=== PATIENT | female | born 1970 | race Caucasian/White ===

== ENCOUNTER 2016-10-16 14:36 | Observation (INO) | payer OTHER ==
[2016-10-16] MEDS ORDERED: MAG HYDROX/AL HYDROX/SIMETH 30 ML, HYOSCYAMINE ELIXIR 10 ML, CIMETIDINE HCL 300 MG, LID... PO STA ×4 (15:19)
[2016-10-16] MEDS ORDERED: FAMOTIDINE 20 MG/2 ML VIAL IV STA (15:19)
[2016-10-16] MEDS ORDERED: SODIUM CHLORIDE 0.9% 1,000 ML IV ONE (15:19)
--- NOTE | 2016-10-16 15:22 | ED ---
Abdominal Pain HPI - General Chief Complaint: Abdominal Pain Stated Complaint: Rt side Abd Pain Time Seen by Provider: 10/16/16 15:11 Source: patient Mode of arrival: ambulatory Limitations: no limitations - History of Present Illness Initial Comments: This is a 46-year-old female with a history of alcohol abuse and pancreatitis who presents here in [facility] for right upper quadrant abdominal pain, nausea , vomiting, and belching. She states that the symptoms have been going on for a few months however it worsened in the last week and became unbearable today. She states that she has not been eating very much because she forgets very full right after she eats and starts to have nausea and belching. She states that she does drink every day and the last time she drank was yesterday. She has not followed up with anybody regarding these symptoms in quite some time. She states that she has a oil dipper in [place] however does not further doctor's name. The patient states that she typically will take a Vicodin if she can get it to help with the pain. She denies any dysuria or hematuria. No lower abdominal pain. No vaginal bleeding or discharge. No fevers or chills. No chest pain or shortness of breath. - Related Data Home Medications Medication Instructions Recorded Confirmed Omeprazole [PriLOSEC] 20 mg PO DAILY 07/17/15 10/16/16 Lipase/Protease/Amylase [Zenpep Dr 2 cap PO TID-W/MEALS 04/04/16 10/16/16 15,000 Units Capsule] Cetirizine HCl [Zyrtec] 10 mg PO DAILY 10/16/16 10/16/16 Previous Rx's Medication Instructions Recorded Ondansetron Odt [Zofran Odt] 4 mg PO Q8HR PRN #10 tab 04/04/16 Allergies Allergy/AdvReac Type Severity Reaction Status Date / Time No Known Allergies Allergy Verified 10/16/16 15:23 Review of Systems ROS Statement: Those systems with pertinent positive or pertinent negative responses have been documented in the HPI. ROS Other: All systems not noted in ROS Statement are negative. Past Medical History Past Medical History: COPD, GERD/Reflux, Hypertension Additional Past Medical History / Comment(s): FATTY LIVER MASS, CYST ON PANCREAS , PANCREATITIS, OCCASIONAL DIARRHEA, STATES RUNNY NOSE-NOT SURE IF IT IS ALLERGIES-DENIES ILLNESS. History of Any Multi-Drug Resistant Organisms: None Reported Past Surgical History: Tubal Ligation, Uterine Ablation Additional Past Surgical History / Comment(s): TUBAL WITH TUBE REMOVED . Past Anesthesia/Blood Transfusion Reactions: No Reported Reaction Past Psychological History: Anxiety Smoking Status: Heavy tobacco smoker Past Alcohol Use History: Daily Additional Past Alcohol Use History / Comment(s): DRINKS 5-6 BEERS PER WEEK. STARTED SMOKING AGE 13. SMOKES 1PPD Past Drug Use History: Marijuana Additional Drug Use History / Comment(s): SMOKES MARIJUANA- LAST USE 2 DAYS AGO. - Past Family History Mother Family Medical History: No Reported History General Exam - General Exam Comments Initial Comments: Constitutional: Awake alert Appears comfortable Head: Normocephalic atraumatic Eyes: no conjunctival injection No scleral icterus EOMI Neck: No JVD Supple Heart: Regular rate rhythm normal S1-S2 no murmurs Lungs: Clear to auscultation bilaterally No wheezing No rales Abdomen: Soft nondistended tender to palpation in the right upper quadrant and epigastric region without rebound or guarding Extremities: Non edematous DP pulses intact Radial pulses intact Neuro: A&Ox3 No focal neurologic deficits Psych: Appropriate mood and affect Limitations: no limitations Course Vital Signs 10/16/16 14:41 Temperature 97.8 F Pulse Rate 100 Respiratory 20 Rate Blood Pressure 133/88 O2 Sat by Pulse 99 Oximetry Medical Decision Making - Medical Decision Making This is a 46-year-old female who presented for right upper quadrant pain. The patient has what appears to be choledocholithiasis and possible acute cholecystitis. I spoke with Dr. Trinidad about the ultrasound findings and he feels the GI needs to see the patient first before he can operate. I spoke with Dr. Jaimes who accepts the admission. GI was placed on consult. The patient was started on Rocephin and Flagyl. She'll be admitted for pain control and further evaluation. The patient was updated. - Lab Data Result diagrams: 10/16/16 16:01 10/16/16 16:01 Lab Results 10/16/16 10/16/16 10/16/16 Range/Units 16:01 16:01 16:01 WBC 11.4 H (3.8-10.6) k/uL RBC 3.19 L (3.80-5.40) m/uL Hgb 11.7 (11.4-16.0) gm/dL Hct 36.2 (34.0-46.0) % MCV 113.6 H (80.0-100.0) fL MCH 36.8 H (25.0-35.0) pg MCHC 32.3 (31.0-37.0) g/dL RDW 13.8 (11.5-15.5) % Plt Count 148 L (150-450) k/uL Neutrophils % 78 % Lymphocytes % 13 % Monocytes % 6 % Eosinophils % 1 % Basophils % 0 % Neutrophils # 8.9 H (1.3-7.7) k/uL Lymphocytes # 1.5 (1.0-4.8) k/uL Monocytes # 0.7 (0-1.0) k/uL Eosinophils # 0.1 (0-0.7) k/uL Basophils # 0.0 (0-0.2) k/uL Macrocytosis Marked Sodium 135 L (137-145) mmol/L Potassium 2.9 L* (3.5-5.1) mmol/L Chloride 95 L (98-107) mmol/L Carbon Dioxide 28 (22-30) mmol/L Anion Gap 12 mmol/L BUN 2 L (7-17) mg/dL Creatinine 0.71 (0.52-1.04) mg/dL Est GFR (MDRD) Af Amer >60 (>60 ml/min/1.73 sqM) Est GFR (MDRD) Non-Af >60 (>60 ml/min/1.73 sqM) Glucose 146 H (74-99) mg/dL Calcium 9.0 (8.4-10.2) mg/dL Magnesium 1.6 (1.6-2.3) mg/dL Total Bilirubin 4.1 H (0.2-1.3) mg/dL AST 162 H (14-36) U/L ALT 59 H (9-52) U/L Alkaline Phosphatase 369 H (38-126) U/L Total Protein 6.2 L (6.3-8.2) g/dL Albumin 2.9 L (3.5-5.0) g/dL Amylase <30 L (30-110) U/L Lipase 24 (23-300) U/L Urine Color Urine Appearance (Clear) Urine pH (5.0-8.0) Ur Specific Viola (1.001-1.035) Urine Protein (Negative) Urine Glucose (UA) (Negative) Urine Ketones (Negative) Urine Blood (Negative) Urine Nitrate (Negative) Urine Bilirubin (Negative) Urine Urobilinogen (<2.0) mg/dL Ur Leukocyte Esterase (Negative) Urine RBC (0-5) /hpf Urine WBC (0-5) /hpf Ur Squamous Epith Cells (0-4) /hpf Amorphous Sediment (None) /hpf Urine Bacteria (None) /hpf Hyaline Casts (0-2) /lpf Urine Mucus (None) /hpf Urine HCG, Qual Not Detected (Not Detectd) Serum Alcohol <10 mg/dL 10/16/16 Range/Units 16:01 WBC (3.8-10.6) k/uL RBC (3.80-5.40) m/uL Hgb (11.4-16.0) gm/dL Hct (34.0-46.0) % MCV (80.0-100.0) fL MCH (25.0-35.0) pg MCHC (31.0-37.0) g/dL RDW (11.5-15.5) % Plt Count (150-450) k/uL Neutrophils % % Lymphocytes % % Monocytes % % Eosinophils % % Basophils % % Neutrophils # (1.3-7.7) k/uL Lymphocytes # (1.0-4.8) k/uL Monocytes # (0-1.0) k/uL Eosinophils # (0-0.7) k/uL Basophils # (0-0.2) k/uL Macrocytosis Sodium (137-145) mmol/L Potassium (3.5-5.1) mmol/L Chloride (98-107) mmol/L Carbon Dioxide (22-30) mmol/L Anion Gap mmol/L BUN (7-17) mg/dL Creatinine (0.52-1.04) mg/dL Est GFR (MDRD) Af Amer (>60 ml/min/1.73 sqM) Est GFR (MDRD) Non-Af (>60 ml/min/1.73 sqM) Glucose (74-99) mg/dL Calcium (8.4-10.2) mg/dL Magnesium (1.6-2.3) mg/dL Total Bilirubin (0.2-1.3) mg/dL AST (14-36) U/L ALT (9-52) U/L Alkaline Phosphatase (38-126) U/L Total Protein (6.3-8.2) g/dL Albumin (3.5-5.0) g/dL Amylase (30-110) U/L Lipase (23-300) U/L Urine Color Dark Yellow Urine Appearance Cloudy H (Clear) Urine pH 6.0 (5.0-8.0) Ur Specific Viola 1.010 (1.001-1.035) Urine Protein Trace H (Negative) Urine Glucose (UA) Negative (Negative) Urine Ketones Negative (Negative) Urine Blood Negative (Negative) Urine Nitrate Negative (Negative) Urine Bilirubin 1+ H (Negative) Urine Urobilinogen 4.0 (<2.0) mg/dL Ur Leukocyte Esterase Trace H (Negative) Urine RBC 1 (0-5) /hpf Urine WBC 10 H (0-5) /hpf Ur Squamous Epith Cells 6 H (0-4) /hpf Amorphous Sediment Rare H (None) /hpf Urine Bacteria Rare H (None) /hpf Hyaline Casts 6 H (0-2) /lpf Urine Mucus Occasional H (None) /hpf Urine HCG, Qual (Not Detectd) Serum Alcohol mg/dL Disposition Clinical Impression: Acute cholecystitis, Choledocholithiasis Disposition: ADMITTED IP TO THIS [facility] Condition: Stable
[2016-10-16 16:16] LABS: Basophils % (A) 0 %; CH 36.3; CHCM 32.1; Eosinophils # (A) 0.1 k/uL (0-0.7); Eosinophils % (A) 1 %; HCT 36.2 % (34.0-46.0); HGB 11.7 gm/dL (11.4-16.0); Luc # (Auto) 0.22; Luc % (Auto) 2; Lymphocytes # (A) 1.5 k/uL (1.0-4.8); Lymphocytes % (A) 13 %; MCH 36.8 pg (25.0-35.0); MCHC 32.3 g/dL (31.0-37.0); MCV 113.6 fL (80.0-100.0); Macrocytosis Marked; Mean Platelet Volume 7.7; Monocytes # (A) 0.7 k/uL (0-1.0); Monocytes % (A) 6 %; Neutrophils # (A) 8.9 k/uL (1.3-7.7); Neutrophils % (A) 78 %; RBC 3.19 m/uL (3.80-5.40); RDW 13.8 % (11.5-15.5); WBC 11.4 k/uL (3.8-10.6); WBC (Perox) 11.97
[2016-10-16 16:20] LABS: Amorphous Sediment,Urine Rare /hpf; Appearance,Urine Cloudy (Clear); Bacteria,Urine Rare /hpf; Bilirubin,Urine 1+ (Negative); Glucose,Urine (UA) Negative (Negative); Ketones,Urine Negative (Negative); Leukocyte Esterase,Urine Trace (Negative); Mucus,Urine Occasional /hpf; Nitrite,Urine Negative (Negative); Particle Count 3845; Protein,Urine Trace (Negative); RBC,Urine 1 /hpf (0-5); Squamous Epithelial Cell,Urine 6 /hpf (0-4); UA Billing (MACRO vs. MICRO) MICRO; WBC,Urine 10 /hpf (0-5)
[2016-10-16 16:28] LABS: ALT 59 U/L (9-52); AST 162 U/L (14-36); Alcohol <10 mg/dL; Alkaline Phosphatase 369 U/L (38-126); Amylase <30 U/L (30-110); Anion Gap 12 mmol/L; Blood Urea Nitrogen 2 mg/dL (7-17); Carbon Dioxide 28 mmol/L (22-30); Chloride 95 mmol/L (98-107); Glucose 146 mg/dL (74-99); Magnesium 1.6 mg/dL (1.6-2.3); Non-African American GFR(MDRD) >60 (>60 ml/min/1.73 sqM); Sodium 135 mmol/L (137-145); Total Bilirubin 4.1 mg/dL (0.2-1.3); Total Protein 6.2 g/dL (6.3-8.2)
[2016-10-16 16:34] LABS: Potassium 2.9 mmol/L (3.5-5.1)
[2016-10-16] MEDS ORDERED: POTASSIUM CHLORIDE ER 20 MEQ TAB.ER PO STA (16:38)
[2016-10-16] MEDS ORDERED: MAGNESIUM OXIDE 400 MG TAB PO STA (16:38)
[2016-10-16] MEDS ORDERED: MORPHINE SULFATE 4 MG/ML SYRINGE IVP STA (17:06)
[2016-10-16] MEDS ORDERED: ONDANSETRON 4 MG/2 ML VIAL IVP STA (17:06)
--- NOTE | 2016-10-16 17:13 | US ---
EXAMINATION TYPE: US abdomen limited DATE OF EXAM: 10/16/2016 4:52 PM COMPARISON: 06/19/2015 CLINICAL HISTORY: Pain. RUQ pain and N/V x 2 weeks, bloating EXAM MEASUREMENTS: Liver Length: 17.5 cm Gallbladder Wall: 0.2 cm CBD: 1.0 cm Right Kidney: 9.1 x 3.5 x 4.0 cm Findings: Pancreas: obscured by overlying midline bowel gas Liver: measures in upper limits of normal at 17.5cm, increased echogenicity, increased attenuation Gallbladder: appears hydropic at 12.2cm in length and 5.3cm in transverse, low level echoes seen kenia ng posterior wall, wall measures wnl, small amount of fluid seen adjacent to gallbladder Evidence for sonographic Lopez's sign: yes CBD: dilated at 1.0cm Right Kidney: wnl IMPRESSION: 1. Gallbladder hydrops with low-level internal echoes and a small amount of adjacent fluid. Common bi le duct dilatation noted as well. Correlate for acute cholecystitis.
[2016-10-16] MEDS ORDERED: ONDANSETRON 4 MG/2 ML VIAL IVP PRN (17:59)
[2016-10-16] MEDS ORDERED: NALOXONE 0.4 MG/ML 1 ML VIAL IV PRN (17:59)
[2016-10-16] MEDS ORDERED: metroNIDAZOLE-NS PMX 500 MG in SALINE 1 100ML.BAG IVPB ONE (18:15)
[2016-10-16] MEDS: SODIUM CHLORIDE 0.9% 1,000 ML IV SCH (19:09)
[2016-10-16 19:57] VITALS: BMI 17.2
[2016-10-16] MEDS ORDERED: diphenhydrAMINE 50 MG CAP PO PRN (20:02)
[2016-10-16] MEDS: NICOTINE 21MG/24HR PATCH TRANSDERM SCH (20:30)
[2016-10-16] MEDS ORDERED: LORazepam 2 MG/ML SYRINGE IV PRN ×2 (21:23)
[2016-10-16 22:20] VITALS: RESP 16
[2016-10-17] MEDS: metroNIDAZOLE-NS PMX 500 MG in SALINE 1 100ML.BAG IVPB SCH ×2 (00:19→07:14)
[2016-10-17] MEDS: SODIUM CHLORIDE 0.9% 1,000 ML IV SCH ×2 (03:29→14:40)
[2016-10-17] MEDS: LEVOTHYROXINE 88 MCG TAB PO SCH (06:15)
[2016-10-17] MEDS: LIPASE 5,000/PROTEASE 17,000/AMYLASE 27,0000 PO SCH ×3 (07:17→17:09)
[2016-10-17] MEDS: NICOTINE 21MG/24HR PATCH TRANSDERM SCH (07:18)
[2016-10-17] MEDS: PANTOPRAZOLE 40 MG TABLET PO SCH (07:18)
[2016-10-17] MEDS: LORATADINE 10 MG TAB PO SCH (07:18)
[2016-10-17] MEDS ORDERED: Potassium Replacement Protocol 1 EACH MISC MISCELLANE PRN (10:36)
[2016-10-17 10:47] LABS: INR 1.3 (<1.1); Prothrombin Time 13.2 sec (9.0-12.0)
[2016-10-17 10:48] LABS: ALT 51 U/L (9-52); AST 101 U/L (14-36); Alkaline Phosphatase 267 U/L (38-126); Anion Gap 5 mmol/L; Bilirubin, Delta 1.6 mg/dL (0.0-0.2); Blood Urea Nitrogen <2 mg/dL (7-17); Calcium 7.7 mg/dL (8.4-10.2); Carbon Dioxide 27 mmol/L (22-30); Chloride 105 mmol/L (98-107); Glucose 102 mg/dL (74-99); Non-African American GFR(MDRD) >60 (>60 ml/min/1.73 sqM); Potassium 3.6 mmol/L (3.5-5.1); Sodium 137 mmol/L (137-145); Total Bilirubin 3.2 mg/dL (0.2-1.3); Total Protein 4.4 g/dL (6.3-8.2)
[2016-10-17 10:50] LABS: Basophils % (A) 0 %; CH 35.9; CHCM 31.1; Eosinophils # (A) 0.1 k/uL (0-0.7); Eosinophils % (A) 1 %; HCT 29.7 % (34.0-46.0); HDW 2.18; Hypochromasia Slight; Luc # (Auto) 0.21; Luc % (Auto) 3; Lymphocytes % (A) 15 %; MCH 36.6 pg (25.0-35.0); MCHC 31.5 g/dL (31.0-37.0); MCV 115.9 fL (80.0-100.0); Macrocytosis Marked; Mean Platelet Volume 8.2; Monocytes # (A) 0.4 k/uL (0-1.0); Monocytes % (A) 6 %; Neutrophils # (A) 4.9 k/uL (1.3-7.7); Neutrophils % (A) 75 %; RBC 2.57 m/uL (3.80-5.40); RDW 14.4 % (11.5-15.5); WBC 6.5 k/uL (3.8-10.6); WBC (Perox) 6.38
[2016-10-17 10:51] LABS: HGB 9.4 gm/dL (11.4-16.0)
[2016-10-17 11:17] LABS: Hepatitis B Surface Ag Index 0.07
[2016-10-17 11:23] LABS: Hepatitis B Core IgM Index 0.04
[2016-10-17 11:35] LABS: Hepatitis C Virus IgG Index 0.02
[2016-10-17 11:39] LABS: Hepatitis C Virus IgG Ab Negative (Negative)
--- NOTE | 2016-10-17 11:46 | P.CONS ---
History of Present Illness - Reason for Consult Consult date: 10/17/16 Biliary obstruction Requesting physician: Isabella Rodriguez - History of Present Illness 46-year-old female with a history of long-standing EtOH abuse. She drinks whiskey on a daily basis as recent as one day prior to admission. Consultation requested for possible biliary obstruction. She is known to the GI service and evaluated in the past regarding alcohol pancreatitis but has never been jaundice. Admission total bilirubin 4.1. AST 162. ALT 59. Alkaline phosphatase 369. Lipase 24. White count 11.4. Hemoglobin 11.7. MCV 113. Platelet 148. Serum alcohol less than 10. She has been expressing right upper quadrant abdominal discomfort for the last 2 weeks duration without fever or chills. Darker urine over the last few days. Denies acholic stools. Ultrasound abdomen reported enlarged liver 17.5 cm with hydropic gallbladder low-level echoes seen posterior wall small amount of fluid seen adjacent to the gallbladder. CBD 1 cm. Patient has had multiple abdominal imaging including liver MRI over the last 2 years all failing to yield evidence of cholelithiasis. CBD seems to fluctuate between 0.7 and 1 cm on these imaging studies. No changes in medications. No recent antibiotics. Review of Systems Constitutional: Denies fever, chills, sweats, weight gain, or loss. HEENT: Negative for migraines, blurred vision or loss, earaches, drainage, tinnitus, oral mucosal lesions, dysphagia, or odynophagia. CARDIAC: Negative for chest pain, arrhythmias, or palpitation. RESPIRATORY: Cigarette dependency. Marijuana. COPD. Hypertension. Denies hemoptysis, cough, or sputum production. GI: See HPI for pertinent findings. : Negative for hematuria, urgency, frequency, polyuria, or dysuria. GYNc: Denies possibility of . Negative vaginal discharge. MUSCULOSKELETAL: Negative for muscle aches, swelling, arthritis, and arthralgias. NEUROLOGIC: Negative for stroke or TIA. ENDOCRINE: Negative for thyroid problems. SKIN: Negative for rash or itching. PSYCHIATRIC: Anxiety. All systems: negative (See HPI) Past Medical History Past Medical History: COPD, GERD/Reflux, Hypertension Additional Past Medical History / Comment(s): FATTY LIVER MASS, CYST ON PANCREAS , PANCREATITIS, OCCASIONAL DIARRHEA, STATES RUNNY NOSE-NOT SURE IF IT IS ALLERGIES-DENIES ILLNESS. History of Any Multi-Drug Resistant Organisms: None Reported Past Surgical History: Tubal Ligation, Uterine Ablation Additional Past Surgical History / Comment(s): TUBAL WITH TUBE REMOVED . Past Anesthesia/Blood Transfusion Reactions: No Reported Reaction Past Psychological History: Anxiety Smoking Status: Heavy tobacco smoker Past Alcohol Use History: Daily Additional Past Alcohol Use History / Comment(s): DRINKS 5-6 BEERS PER WEEK. STARTED SMOKING AGE 13. SMOKES 1PPD Past Drug Use History: Marijuana Additional Drug Use History / Comment(s): SMOKES MARIJUANA- last used today - Past Family History Mother Family Medical History: No Reported History Medications and Allergies Home Medications Medication Instructions Recorded Confirmed Type Omeprazole [PriLOSEC] 20 mg PO DAILY 07/17/15 10/16/16 History Lipase/Protease/Amylase [Zenpep Dr 2 cap PO TID-W/MEALS 04/04/16 10/16/16 History 15,000 Units Capsule] Cetirizine HCl [Zyrtec] 10 mg PO DAILY 10/16/16 10/16/16 History Allergies Allergy/AdvReac Type Severity Reaction Status Date / Time No Known Allergies Allergy Verified 10/16/16 15:23 Physical Exam Vitals: Vital Signs Temp Pulse Pulse Resp BP BP Pulse Ox 10/17/16 07:00 98.0 F 77 16 96/63 96 10/16/16 23:24 96 16 10/16/16 22:19 98.2 F 96 16 126/78 97 10/16/16 18:59 98.2 F 97 18 127/80 100 Intake and Output 10/16/16 10/17/16 10/17/16 22:59 06:59 14:59 Intake Total 240 Balance 240 Intake: Oral 240 Other: # Voids 1 Weight 45.359 kg 45.359 kg General appearance: The patient is alert, oriented with visible hand shaking.. Jaundice. HET: Head is normocephalic and atraumatic. Pupils are equal and reactive. Sclerae icterus. Oropharynx is clear without lesions. Neck: Supple without lymphadenopathy. Trachea midline. Heart: S1 S2. Regular rate and rhythm. Lungs: No crackles or wheezes are heard. Abdomen: Soft, mount tenderness right upper quadrant, nondistended with bowel sounds. No peritoneal signs. No palpable organomegaly or masses. Extremities: Normal skin color and turgor. No cyanosis, rash, ulceration, clubbing, or edema. Radial and pedal pulses are 2/4 bilaterally. Neurological: No focal deficits. Strength and sensation are grossly intact. Results CBC & Chem 7: 10/17/16 10:08 10/16/16 16:01 Labs: Abnormal Lab Results - Last 24 Hours (Table) 10/17/16 10/17/16 Range/Units 10:08 10:08 RBC 2.57 L (3.80-5.40) m/uL Hgb 9.4 L D (11.4-16.0) gm/dL Hct 29.7 L (34.0-46.0) % MCV 115.9 H (80.0-100.0) fL MCH 36.6 H (25.0-35.0) pg Plt Count 137 L (150-450) k/uL PT 13.2 H (9.0-12.0) sec US - abdomen: report reviewed (Reviewed by Dr. Valentine) Assessment and Plan (1) Alcoholic hepatitis Status: Acute (2) Right upper quadrant abdominal pain Status: Acute (3) Jaundice Status: Acute (4) ETOH abuse Status: Chronic Plan: 1. Clinical presentation seems to be consistent with acute alcohol hepatitis with her history of long-standing alcohol abuse and multiple abdominal imaging tests over the last few years reported no evidence of cholelithiasis. We'll defer to surgical team at there is concern for acute cholecystitis. We'll obtain a hepatitis panel, ammonia, PT/INR, and fractionated bilirubin. Case was discussed with Dr. Jarvis regarding clinical assessment. ERCP is not planned at this time however will proceed with MRCP imaging to definitively rule out evidence of choledocholithiasis. 2. Alcohol withdrawal protocol. 3. Clear liquid diet. 4. Alcohol abstinence was strongly advised. 5. GI prophylaxis. 6. Repeat liver chemistries in a.m. Thank you for this kind referral and the opportunity to participate in the care of your patient. This consultation was discussed with Dr. Valentine. The impression and plan of care have been directed as dictated.
--- NOTE | 2016-10-17 11:49 | HP ---
DATE OF ADMISSION: A 46-year-old who came in with complaints of abdominal pain. Patient has this chronic abdominal pain. Patient's pain is mostly in the right upper quadrant and patient is an alcoholic, continues to drink alcohol. Patient had an ultrasound of the abdomen, which was read as gallbladder hydrops because of which surgery was consulted. There is a possibility of common bile obstruction and patient is being evaluated by Gastroenterology as well. Patient is having multiple episodes of nausea, vomiting. 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 Patient is undergoing alcohol withdrawals at this point of time. Patient drinks about 3 shots of hard liquor she says. I believe she uses more than that. Patient appears to have early signs of cirrhosis and patient does not have ophthalmoplegia and other signs of Wernicke's encephalopathy or Korsakoff psychosis. Patient denied any fever, chills. Patient is complaining of cough without any sputum production. Patient is a smoker. The patient does have a highly elevated TSH and T4 and patient was started on levothyroxine, which is appropriate. REVIEW OF SYSTEMS: CONSTITUTIONAL: No fever, no malaise, no fatigue. HEENT: No recent visual problems or hearing problems. Denied any sore throat. CARDIOVASCULAR: No chest pain, orthopnea, PND, no palpitations, no syncope. PULMONARY: No shortness of breath, no cough, no hemoptysis. GASTROINTESTINAL: As described in HPI. NEUROLOGICAL: No headaches, no weakness, no numbness. HEMATOLOGICAL: Denies any bleeding or petechiae. GENITOURINARY: Denies any burning micturition, frequency, or urgency. MUSCULOSKELETAL/RHEUMATOLOGICAL: Denies any joint pain, swelling, or any muscle pain. ENDOCRINE: Denies any polyuria or polydipsia. The rest of the 14 point review of systems is negative. Home medications include omeprazole. Patient is on lipase protease amylase supplementations, cetirizine and ondansetron. ALLERGIES: No known drug allergies. Past medical history is significant for COPD, gastroesophageal reflux disease, hypertension, possible early signs of cirrhosis and alcohol abuse history and alcoholism, tubal ligation surgery, uterine ablation surgery. Patient does smoke heavily about 1-1/2 packs per day. Alcohol abuse as mentioned above. Occasional use of marijuana. FAMILY HISTORY: Mother had no reported history. Father's history is unknown. PHYSICAL EXAMINATION: Temperature 98.0, pulse of 77, respiratory rate of 16, blood pressure is 96/63, saturating at 96% on room air. GENERAL EXAMINATION: Patient is tremulous. Does have some chronic speech abnormalities, probably due to chronic alcoholic encephalopathy, although patient does not have any signs of Wernicke's encephalopathy. HEENT: Pupils are round and equally reacting to light. EOMI. No scleral icterus. No conjunctival pallor. Normocephalic, atraumatic. No pharyngeal erythema. No thyromegaly. CARDIOVASCULAR: S1 and S2 present. No murmurs, rubs, or gallops. PULMONARY: Chest is clear to auscultation, no wheezing or crackles. ABDOMEN: Soft, nontender, nondistended, normoactive bowel sounds. No palpable organomegaly. MUSCULOSKELETAL: No joint swelling or deformity. EXTREMITIES: No cyanosis, clubbing, or pedal edema. NEUROLOGICAL: Gross neurological examination did not reveal any focal deficits. SKIN: No rashes. LABORATORY DATA: CBC, CMP are abnormal for elevated WBC count of 11,400. Sodium is 135, potassium 2.9, which will be supplemented. I do not have a magnesium level, which will be ordered. Anion gap of 12 secondary to alcohol. Total bili of 4.1, AST is 162. ALT is 59, alkaline phosphatase is ( ). Albumin is 2.9. Amylase less than 30. Lipase is 24. TSH is greater than 100 and T4 is 0.53. Patient does not have any other signs or symptoms of myxedema or myxedema coma. Urine a little bit abnormal, but this is asymptomatic bacteriuria. ASSESSMENT AND PLAN: 1. Epigastric abdominal pain probably due to alcoholic gastritis. Regarding hydrops gallbladder, I will let Surgery take care of that issue. My suspicion is low that patient has choledocholithiasis anyways Gastroenterology was consulted. 2. Alcohol withdrawal and alcohol abuse history. Extensive counseling regarding alcohol abuse was provided. Patient is on thiamine, multivitamin supplementation. Patient has chronic alcoholic encephalopathy, but not Wernicke's encephalopathy and patient is on Ativan and CIWA protocol. 3. Chronic obstructive pulmonary disease with acute exacerbation. I will start her on low dose of oral steroid, inhalational steroid and albuterol ipratropium. 4. New diagnosis of hypothyroidism. 5. Elevated MCV secondary to alcohol use. 6. Multiple electrolyte abnormalities. Magnesium level will be obtained and potassium will be supplemented. 7. Possible alcoholic cirrhosis with elevated liver enzymes. 8. Asymptomatic bacteriuria for which patient will not need any antibiotics at this point of time, although will use doxycycline for bronchitis. Ceftriaxone and metronidazole will be discontinued.
[2016-10-17] MEDS ORDERED: INDOMETHACIN 50MG SUPPOSITORY RECTAL ONE (12:00)
[2016-10-17] MEDS: predniSONE 20 MG TAB PO SCH (12:17)
[2016-10-17] MEDS: POTASSIUM CHLORIDE 10 MEQ in WATER FOR INJECTION 1 100ML.BAG IVPB SCH ×2 (12:18→14:37)
[2016-10-17] MEDS: DOXYCYCLINE 50 MG CAP PO SCH ×2 (12:18→21:01)
[2016-10-17] MEDS: MULTIVITAMINS, THERA 1 EACH TAB PO SCH (12:23)
[2016-10-17] MEDS: THIAMINE 100 MG TAB PO SCH ×2 (12:23→17:03)
[2016-10-17] MEDS: MORPHINE SULFATE 4 MG/ML SYRINGE IV PRN ×2 (12:32→17:02)
[2016-10-17 13:31] LABS: Magnesium 1.7 mg/dL (1.6-2.3)
--- NOTE | 2016-10-17 13:45 | P.GSCN ---
History of Present Illness Consult date: 10/17/16 History of present illness: A 46-year-old female is being seen by surgical service at the request of the attending for right upper abdominal quadrant pain. 46-year-old female being seen at the bedside who states that she is an active drinker drinks whiskey on a daily basis last drink within the last 24-48 hours. Patient presented to the emergency room with a chief complaint of developing right upper quadrant abdominal discomfort stated it had been ongoing for the past several weeks. Patient denied any fever chills. Patient did have an ultrasound done in the emergency room it did show enlarged liver 17.5 cm with hydropic gallbladder. The common bile duct 1 cm on imaging. Patient does state that she has chronic abdominal pain in the right upper quadrant. Questioning patient patient states she has had episodes of a nausea sensation no active emesis. Given the above clinical presentation the surgical eval was requested currently the patient states the abdominal pain continues to persist points to the right upper quadrant. Additionally patient reports that her urine has been dark but there's been no frequent stooling. The labs were noted and reviewed. AST and ALT and alk phos mildly elevated lipase is 24. Review of Systems Essentially unremarkable except as mentioned in the present illness Past Medical History Past Medical History: COPD, GERD/Reflux, Hypertension Additional Past Medical History / Comment(s): FATTY LIVER MASS, CYST ON PANCREAS , PANCREATITIS, OCCASIONAL DIARRHEA, STATES RUNNY NOSE-NOT SURE IF IT IS ALLERGIES-DENIES ILLNESS. History of Any Multi-Drug Resistant Organisms: None Reported Past Surgical History: Tubal Ligation, Uterine Ablation Additional Past Surgical History / Comment(s): TUBAL WITH TUBE REMOVED . Past Anesthesia/Blood Transfusion Reactions: No Reported Reaction Past Psychological History: Anxiety Smoking Status: Heavy tobacco smoker Past Alcohol Use History: Daily Additional Past Alcohol Use History / Comment(s): DRINKS 5-6 BEERS PER WEEK. STARTED SMOKING AGE 13. SMOKES 1PPD Past Drug Use History: Marijuana Additional Drug Use History / Comment(s): SMOKES MARIJUANA- last used today - Past Family History Mother Family Medical History: No Reported History Medications and Allergies Home Medications Medication Instructions Recorded Confirmed Type Omeprazole [PriLOSEC] 20 mg PO DAILY 07/17/15 10/16/16 History Lipase/Protease/Amylase [Zenpep Dr 2 cap PO TID-W/MEALS 04/04/16 10/16/16 History 15,000 Units Capsule] Cetirizine HCl [Zyrtec] 10 mg PO DAILY 10/16/16 10/16/16 History Allergies Allergy/AdvReac Type Severity Reaction Status Date / Time No Known Allergies Allergy Verified 10/16/16 15:23 Surgical - Exam Vital Signs Temp Pulse Resp BP Pulse Ox 97.8 F 100 20 133/88 99 10/16/16 14:41 10/16/16 14:41 10/16/16 14:41 10/16/16 14:41 10/16/16 14:41 GENERAL APPEARANCE: 46-year-old female looking older than stated age jaundice is alert, oriented, in no acute distress. VITAL SIGNS: Reviewed HEENT: Head is normocephalic and atraumatic. Pupils are equal and reactive. The nares are patent. Oropharynx is clear without lesions. NECK: Supple without lymphadenopathy. Traches midline. HEART: S1, S2. Regular rate and rhythm. LUNGS: No crackles or wheezes are heard. ABDOMEN: Soft, slight tenderness to the right upper quadrant nondistended with bowel sounds. No peritoneal signs. No palpable organomegaly or masses. EXTREMITIES: No edema. Radial pedal pulses are 2/4 bilaterally. Tremors noticed the bilateral hands NEUROLOGICAL: No focal deficits. Strength and sensation are grossly intact. Skin jaundiced no evidence of a rash Results - Labs 10/17/16 10:08 10/17/16 10:08 Abnormal Lab Results - Last 24 Hours (Table) 10/17/16 10/17/16 10/17/16 Range/Units 10:08 10:08 10:08 RBC 2.57 L (3.80-5.40) m/uL Hgb 9.4 L D (11.4-16.0) gm/dL Hct 29.7 L (34.0-46.0) % MCV 115.9 H (80.0-100.0) fL MCH 36.6 H (25.0-35.0) pg Plt Count 137 L (150-450) k/uL PT 13.2 H (9.0-12.0) sec BUN <2 L (7-17) mg/dL Glucose 102 H (74-99) mg/dL Calcium 7.7 L (8.4-10.2) mg/dL Total Bilirubin 3.2 H (0.2-1.3) mg/dL Conjugated Bilirubin 0.7 H (0.0-0.3) mg/dL Delta Bilirubin 1.6 H (0.0-0.2) mg/dL AST 101 H (14-36) U/L Alkaline Phosphatase 267 H (38-126) U/L Total Protein 4.4 L (6.3-8.2) g/dL Albumin 1.9 L (3.5-5.0) g/dL Diabetes panel 10/17/16 Range/Units 10:08 Sodium 137 (137-145) mmol/L Potassium 3.6 (3.5-5.1) mmol/L Chloride 105 (98-107) mmol/L Carbon Dioxide 27 (22-30) mmol/L BUN <2 L (7-17) mg/dL Creatinine 0.75 (0.52-1.04) mg/dL Glucose 102 H (74-99) mg/dL Calcium 7.7 L (8.4-10.2) mg/dL AST 101 H (14-36) U/L ALT 51 (9-52) U/L Alkaline Phosphatase 267 H (38-126) U/L Total Protein 4.4 L (6.3-8.2) g/dL Albumin 1.9 L (3.5-5.0) g/dL Calcium panel 10/17/16 Range/Units 10:08 Calcium 7.7 L (8.4-10.2) mg/dL Albumin 1.9 L (3.5-5.0) g/dL Pituitary panel 10/17/16 Range/Units 10:08 Sodium 137 (137-145) mmol/L Potassium 3.6 (3.5-5.1) mmol/L Chloride 105 (98-107) mmol/L Carbon Dioxide 27 (22-30) mmol/L BUN <2 L (7-17) mg/dL Creatinine 0.75 (0.52-1.04) mg/dL Glucose 102 H (74-99) mg/dL Calcium 7.7 L (8.4-10.2) mg/dL Adrenal panel 10/17/16 Range/Units 10:08 Sodium 137 (137-145) mmol/L Potassium 3.6 (3.5-5.1) mmol/L Chloride 105 (98-107) mmol/L Carbon Dioxide 27 (22-30) mmol/L BUN <2 L (7-17) mg/dL Creatinine 0.75 (0.52-1.04) mg/dL Glucose 102 H (74-99) mg/dL Calcium 7.7 L (8.4-10.2) mg/dL Total Bilirubin 3.2 H (0.2-1.3) mg/dL AST 101 H (14-36) U/L ALT 51 (9-52) U/L Alkaline Phosphatase 267 H (38-126) U/L Total Protein 4.4 L (6.3-8.2) g/dL Albumin 1.9 L (3.5-5.0) g/dL Assessment and Plan Plan: Impression Present on admission right upper quadrant pain acute Chronic alcoholism daily consumption currently on [facility] protocol for impending DTs last drink of alcohol within the last 24-48 hours Present on admission jaundice alcohol hepatitis with chronic alcoholism Plan GIs recommendations ERCP not planned at this time however will proceed with an MRCP imaging to do definitively rule out evidence of cholelithiasis Continue with the alcohol withdrawal protocol Clear liquid diet Patient's been advised to stop drinking alcohol abstinence strongly advised At this time no acute surgical intervention will follow clinical course closely addressing issues as they arise Thank you for allowing us to participate in the surgical management of your patient The above dictated assessment and findings were discussed with Dr. Jarvis Impression and the plan of care have been dictated as directed. Rose Ching nurse practitioner acting as a scribe for Matheus.
[2016-10-17] MEDS: SYMBICORT 160-4.5 MCG INHALER INHALATION SCH (19:18)
[2016-10-17] MEDS ORDERED: MELATONIN 3 MG TABLET PO SCH (21:15)
[2016-10-17] MEDS: LORazepam 2 MG/ML SYRINGE IV PRN (21:39)
--- NOTE | 2016-10-17 22:17 | MR ---
EXAMINATION TYPE: MR MRCP DATE OF EXAM: 10/17/2016 5:00 PM COMPARISON: NONE HISTORY: hepatitis r/o CBD stone Standard multiplanar, multisequence MRI departmental protocol Multiplanar, multisequence images of the abdomen were acquired (MRCP protocol). [id number] imagin g was utilized. Diffusion weighted imaging was performed. FINDINGS: Again there is signal dropout homogeneously of the hepatic parenchyma with a smooth liver contour com patible with diffuse hepatic steatosis. Lack of intravenous contrast and presence of hepatic steatosi s limits evaluation for underlying hepatic masses. There is mild diffuse intrahepatic biliary ductal dilatation. Although there are no obstructing calculi the proximal common bile duct is enlarged measu ring up to 8 mm and tapers smoothly distally without abrupt cut off. The main pancreatic duct is agai n mildly prominent in size measuring up to 5 mm near the pancreatic head, unchanged from the prior ex am. There is no evidence of focal stricture within the pancreatic duct. Multiple sidebranches appear dilated one inferiorly on axial T2 fat sat image 18 and the other may represent accessory duct of Alarcon torini on image 17. Again within the pancreatic tail there is a multiseptated cystic mass that appear s to be contiguous with the main pancreatic duct, which is nondilated within the tail. This measures 1.7 x 1.3 cm and is overall unchanged in size given differences in technique and slice selection. The spleen, kidneys, adrenal glands, and bowel are grossly unremarkable. The gallbladder is again pro minent in size. Pancreatic head is not well visualized at its inferior margin and incompletely charac terized without the utilization of intravenous contrast. Given the dilation of the common bile duct a nd pancreatic duct MR abdomen pancreatic mass protocol is recommended. IMPRESSION: 1. Dilation of both the common bile duct and pancreatic duct with distal tapering of the common bile duct. This may represent common bile duct stricture. Alternatively evaluation for pancreatic mass is recommended with CT abdomen pancreatic mass protocol or MR abdomen pancreatic mass protocol. 2. No evidence of choledocholithiasis. 3. Redemonstration of hepatic steatosis. 4. Overall unchanged size of the cystic pancreatic tail lesion, likely related to IPMN for which foll ow-up examination in one year is recommended with intravenous contrast to assess for changes in morph ology, size, and enhancement.
[2016-10-18] MEDS: SODIUM CHLORIDE 0.9% 1,000 ML IV SCH ×2 (00:11→07:30)
[2016-10-18] MEDS: LEVOTHYROXINE 88 MCG TAB PO SCH (06:15)
[2016-10-18] MEDS: NICOTINE 21MG/24HR PATCH TRANSDERM SCH (07:17)
[2016-10-18] MEDS: MORPHINE SULFATE 4 MG/ML SYRINGE IV PRN (07:17)
[2016-10-18] MEDS: LIPASE 5,000/PROTEASE 17,000/AMYLASE 27,0000 PO SCH ×2 (07:21→11:52)
[2016-10-18] MEDS: PANTOPRAZOLE 40 MG TABLET PO SCH (07:22)
[2016-10-18] MEDS: DOXYCYCLINE 50 MG CAP PO SCH (07:22)
[2016-10-18] MEDS: predniSONE 20 MG TAB PO SCH (07:22)
[2016-10-18] MEDS: THIAMINE 100 MG TAB PO SCH (07:22)
[2016-10-18] MEDS: LORATADINE 10 MG TAB PO SCH ×2 (07:22→07:29)
[2016-10-18] MEDS: MULTIVITAMINS, THERA 1 EACH TAB PO SCH (07:29)
[2016-10-18 07:41] LABS: CH 36.1; CHCM 30.4; HCT 29.5 % (34.0-46.0); HDW 2.13; HGB 9.2 gm/dL (11.4-16.0); Hypochromasia Slight; MCH 37.3 pg (25.0-35.0); MCHC 31.3 g/dL (31.0-37.0); Macrocytosis Marked; Mean Platelet Volume 8.3; RBC 2.48 m/uL (3.80-5.40); RDW 14.5 % (11.5-15.5); WBC 7.3 k/uL (3.8-10.6)
[2016-10-18 07:42] LABS: INR 1.4 (<1.1); Prothrombin Time 13.6 sec (9.0-12.0)
[2016-10-18 07:52] LABS: MCV 119.2 fL (80.0-100.0)
[2016-10-18 08:03] LABS: ALT 46 U/L (9-52); AST 93 U/L (14-36); Alkaline Phosphatase 260 U/L (38-126); Anion Gap 7 mmol/L; Blood Urea Nitrogen 3 mg/dL (7-17); Calcium 8.1 mg/dL (8.4-10.2); Carbon Dioxide 23 mmol/L (22-30); Chloride 106 mmol/L (98-107); Glucose 106 mg/dL (74-99); Magnesium 1.6 mg/dL (1.6-2.3); Non-African American GFR(MDRD) >60 (>60 ml/min/1.73 sqM); Potassium 4.2 mmol/L (3.5-5.1); Sodium 136 mmol/L (137-145); Total Bilirubin 2.6 mg/dL (0.2-1.3); Total Protein 4.6 g/dL (6.3-8.2)
[2016-10-18] MEDS: LORazepam 2 MG/ML SYRINGE IV PRN (08:27)
[2016-10-18] MEDS: SYMBICORT 160-4.5 MCG INHALER INHALATION SCH (09:02)
--- NOTE | 2016-10-18 10:45 | PN ---
DATE OF SERVICE: 10/18/2016 Patient is a 46-year-old white female with history of heavy alcohol abuse was admitted to the hospital with vague abdominal pain, mostly in the right upper quadrant area for the last several weeks duration. She has occasional nausea and vomiting. When she came into the emergency room, she did have ultrasound of the gallbladder done that showed evidence of hydropic gallbladder with some shadowing in the gallbladder noted and also there was hepatomegaly seen. Common bile duct was dilated to 1 cm. She was noted to have elevated serum transaminases and T-bili up to 4 and hence we are consulted for an ERCP. She was seen in consultation yesterday, but her symptoms are more suggestive of acute alcoholic hepatitis rather than biliary obstruction. She hence underwent an M.R.C.P. yesterday to evaluate this further, which showed dilated common bile duct as well as pancreatic duct with some tapering at the distal CBD but no evidence of choledocholithiasis. In the meantime, the patient still complains of abdominal discomfort. Some nausea. No emesis, tolerating diet reasonably well. No fever, chills, night sweats. On physical examination, she appears comfortable in no apparent distress. Vitals as are stable. Blood pressure is 102/65, pulse 77, temperature 98.2. HEENT examination is unremarkable. Conjunctivae are pink. Sclerae icteric. Oral cavity, no lesions. NECK: No JVD or lymph node enlargement. Lymph node enlargement. CHEST: Clear to auscultation. HEART: Regular rate and rhythm. ABDOMEN: Soft. There was tenderness in the right upper quadrant area. Liver was slightly palpable. Slightly enlarged. No splenomegaly. EXTREMITIES: No pedal edema. SKIN: No rashes. NEURO: Alert and oriented x3. No focal deficits. She does have some tremors in her upper extremities. Labs from today, WBC 7.3, hemoglobin 9.2, platelets are 156, T-bili is now 2.6, AST 93, ALT 46, alk phos 260, albumin 1.9. TSH more than 100. IMPRESSION: This is a lady with known history of heavy alcohol abuse admitted to the hospital with vague right upper quadrant abdominal pain for the last 2 or 3 weeks duration and noted to have elevated serum transaminases with AST more than ALT and elevated total bilirubin all of which is more consistent with acute alcoholic hepatitis. Doubt we are dealing with any biliary obstruction. Ultrasound did show slightly dilated common bile duct and some shadowing in the gallbladder. M.R.C.P. done yesterday did not reveal any CBD stones. She does have dilated common bile duct with some tapering in the distal CBD noted. Her serum transaminases are gradually improving and so is T-bili. RECOMMENDATIONS: 1. Continue with symptomatic and supportive care. 2. No indication for an ERCP the present time. 3. Patient is already on broad-spectrum antibiotics. 4. I had a lengthy discussion with the patient regarding abstinence from alcohol in regards to underlying liver disease with possible cirrhosis of the liver. At this time, will continue to follow her closely during her hospital stay. Thank you for this consultation.
--- NOTE | 2016-10-18 12:59 | DS ---
DATE OF ADMISSION: 10/16/2016 DATE OF DISCHARGE: Patient is a 47-year-old admitted secondary to alcoholic hepatitis and alcohol withdrawal. Patient is not receiving Ativan frequently. Patient will be discharged today, although there was a concern about choledocholithiasis. Patient underwent M.R.C.P. which showed some distal stricture although patient's liver enzymes are coming down and AST and ALT ratio is typical for alcoholic pancreatitis. Bilirubin is coming down. Extensive counseling regarding alcohol use was provided. Patient still drinks alcohol. Patient was advised to go to rehab for alcohol use. Patient will be discharged today. I do not believe patient has ascending cholangitis at this point of time. Patient although has chronic obstructive pulmonary disease exacerbation and bronchitis for which patient will be given antibiotics and steroids and her lungs sound clear today. REVIEW OF SYSTEMS: CARDIOVASCULAR: No chest pain, no orthopnea, no PND, no palpitations. PULMONARY: Denied any shortness of breath. No cough or hemoptysis. GASTROINTESTINAL: No diarrhea, nausea or vomiting. No abdominal pain. Normoactive bowel sounds. NEUROLOGIC: No headaches, no weakness, no numbness. Medications were reviewed. Patient was seen and examined on the in the day of discharge. Vitals are stable. PHYSICAL EXAMINATION: GENERAL: The patient is alert and oriented x3, not in any acute distress. Well developed, well nourished. HEENT: Pupils are round and equally reacting to light. EOMI. No scleral icterus. No conjunctival pallor. Normocephalic, atraumatic. No pharyngeal erythema. No thyromegaly. CARDIOVASCULAR: S1 and S2 present. No murmurs, rubs, or gallops. PULMONARY: Chest is clear to auscultation, no wheezing or crackles. ABDOMEN: Soft, nontender, nondistended, normoactive bowel sounds. No palpable organomegaly. MUSCULOSKELETAL: No joint swelling or deformity. EXTREMITIES: No cyanosis, clubbing, or pedal edema. NEUROLOGICAL: Gross neurological examination did not reveal any focal deficits. SKIN: No rashes. LABORATORY DATA: Improved AST and ALT as well as bilirubin. Bilirubin is 2.6 today. Magnesium is 1.6, which will be supplemented before her discharge. Will give her 1 gram of magnesium today. Potassium was replaced. ASSESSMENT AND PLAN: 1. Epigastric abdominal pain, probably secondary to alcoholic gastritis, which improved at this point of time. 2. Alcohol withdrawals. 3. Alcohol abuse history. 4. Alcoholic hepatitis. 5. Chronic obstructive disease with acute exacerbation. 6. Hypothyroidism. Patient is newly diagnosed hypothyroid for which patient will need levothyroxine upon discharge. Repeat TSH in a month. 7. Macrocytic anemia secondary to liver disease and possible early stages of cirrhosis along with alcoholic hepatitis and alcoholism. 8. Asymptomatic bacteriuria for which she will not need any antibiotics. Patient was seen and examined on the day of discharge. Vitals are stable. Patient will follow with Dr. Patricia Alvarez in 3 to 7 days. Patient is a little bit weak because of this chronic alcoholism. Will set up home care for the patient. I spent greater than 35 minutes in total discharge process. Extensive counseling regarding alcohol and smoking cessation was provided, although patient has multiple admissions for these.
[2016-10-18] MEDS ORDERED: MAGNESIUM SULFATE-D5W PMX 1 GM in DEXTROSE/WATER 1 100ML.BAG IVPB ONE (13:00)
[2016-10-18 16:16] VITALS: BP 100/62; PULSE 69; TEMP 97.7
== END 2016-10-18 17:35 | disposition home health service (06) ==
LOC: EC 14:36 → INTOOBSV 18:00 → 5MS5E 18:00
PROVIDERS: ADMIT Internal Medicine; ATTEND Internal Medicine
PROC: HZ2ZZZZ Detoxification Services for Substance Abuse Treatment (ICD-10-PCS; principal; 2016-10-16)
DX: R10.13 Epigastric pain (principal); R10.11 Right upper quadrant pain; K85.20 Alcohol induced acute pancreatitis without necrosis or infection; K29.20 Alcoholic gastritis without bleeding; E87.8 Other disorders of electrolyte and fluid balance, not elsewhere classified; J44.1 Chronic obstructive pulmonary disease with (acute) exacerbation; F10.239 Alcohol dependence with withdrawal, unspecified; K70.10 Alcoholic hepatitis without ascites; J40 Bronchitis, not specified as acute or chronic; I10 Essential (primary) hypertension; E03.9 Hypothyroidism, unspecified; K21.9 Gastro-esophageal reflux disease without esophagitis; G89.29 Other chronic pain; F12.90 Cannabis use, unspecified, uncomplicated; F41.9 Anxiety disorder, unspecified; D53.9 Nutritional anemia, unspecified; R25.1 Tremor, unspecified; R93.2 Abnormal findings on diagnostic imaging of liver and biliary tract; D72.829 Elevated white blood cell count, unspecified; F17.210 Nicotine dependence, cigarettes, uncomplicated; R82.71 Bacteriuria; R19.7 Diarrhea, unspecified; Z79.891 Long term (current) use of opiate analgesic; Z79.899 Other long term (current) drug therapy; Z98.51 Tubal ligation status; Z90.79 Acquired absence of other genital organ(s); Z71.6 Tobacco abuse counseling; Z71.41 Alcohol abuse counseling and surveillance of alcoholic; Y90.0 Blood alcohol level of less than 20 mg/100 ml
CPT/HCPCS: 96361; 96375; 99285 ×2; 36415; 94640 ×2; 84439; 80053 ×3; 80074; 84443; 82150; 82248; 83690; 83735 ×3; 85025 ×2; 85027; 85610 ×2; 81001; 81025; 80320; 76705; 74181; G0378 ×3; S4990 ×3; J2060 ×3; J2270 ×3; J2405 ×2; J0696 ×3; J3475; J3480; J7512 ×2; 96366; 96367; 96376

== ENCOUNTER 2016-10-29 16:01 | Inpatient (IN) | payer OTHER ==
--- NOTE | 2016-10-29 17:34 | ED ---
General Adult HPI - General Chief complaint: Upper Respiratory Infection Stated complaint: Water Retension Time Seen by Provider: 10/29/16 17:06 Source: patient, RN notes reviewed Mode of arrival: ambulatory Limitations: no limitations - History of Present Illness Initial comments: Patient is a 46-year-old female presents to the emergency room for evaluation of bilateral leg edema. Patient was admitted from 10/16/16-10/18/16 for alcoholic gastritis, alcohol withdrawl, COPD exacerbation, newly diagnosed hypothyroidism and alcoholic cirrhosis. Patient was placed on prednisone taper and antibiotics upon discharge. Patient states about a week after she was discharged she began developing bilateral leg swelling and abdominal distention. Patient states she has gained about 23 pounds since she was discharged from the hospital on 10/18/16. Patient states that she recently discontinued the prednisone taper about 3 days ago. Patient states she went to go see Dr. Gomez today and was advised to come to the emergency room for further evaluation. Patient states both of her legs are very tender and feel tight from the swelling. Patient states it hurts to walk. Patient denies calf pain. Patient states most of her pain is on the top portions of both of her feet. Patient denies any significant abdominal pain today. Patient states the abdominal pain has subsided since she was last discharged. Patient does have a history of alcohol abuse. Patient states she's only had 1 drink since discharge. Patient states she had one glass of whiskey and Coke yesterday. Patient denies any alcohol use today. Patient does states she's had a productive cough over the past week. Patient states she has slight shortness of breath due to the swelling in her abdomen. Patient denies chest pain. - Related Data Home Medications Medication Instructions Recorded Confirmed Omeprazole [PriLOSEC] 20 mg PO DAILY 07/17/15 10/29/16 Lipase/Protease/Amylase [Zenpep Dr 2 cap PO TID-W/MEALS 04/04/16 10/29/16 15,000 Units Capsule] Cetirizine HCl [Zyrtec] 10 mg PO DAILY 10/16/16 10/29/16 Albuterol Inhaler [Ventolin Hfa 2 puff INHALATION RT-Q6H PRN 10/29/16 10/29/16 Inhaler] Budesonide-Formot 160-4.5 Mcg 2 puff INHALATION RT-BID 10/29/16 10/29/16 [Symbicort 160-4.5 Mcg Inhaler] Tiotropium 18 Mcg/Puff [Spiriva] 1 cap INHALATION RT-DAILY 10/29/16 10/29/16 Previous Rx's Medication Instructions Recorded LORazepam [Ativan] 1 mg PO TID PRN #30 tab 10/18/16 Levothyroxine Sodium [Synthroid] 88 mcg PO DAILY@0630 #30 tab 10/18/16 Thiamine [Vitamin B-1] 100 mg PO DAILY #30 tablet 10/18/16 Allergies Allergy/AdvReac Type Severity Reaction Status Date / Time No Known Allergies Allergy Verified 10/29/16 17:11 Review of Systems ROS Statement: Those systems with pertinent positive or pertinent negative responses have been documented in the HPI. ROS Other: All systems not noted in ROS Statement are negative. Past Medical History Past Medical History: COPD, GERD/Reflux, Hypertension Additional Past Medical History / Comment(s): FATTY LIVER MASS, CYST ON PANCREAS , PANCREATITIS, OCCASIONAL DIARRHEA, STATES RUNNY NOSE-NOT SURE IF IT IS ALLERGIES-DENIES ILLNESS. hep c etoh absuse History of Any Multi-Drug Resistant Organisms: None Reported Past Surgical History: Tubal Ligation, Uterine Ablation Additional Past Surgical History / Comment(s): TUBAL WITH TUBE REMOVED . Past Anesthesia/Blood Transfusion Reactions: No Reported Reaction Past Psychological History: Anxiety Smoking Status: Heavy tobacco smoker Past Alcohol Use History: Daily, Heavy Additional Past Alcohol Use History / Comment(s): DRINKS 5-6 BEERS PER WEEK. STARTED SMOKING AGE 13. SMOKES 1PPD Past Drug Use History: Marijuana Additional Drug Use History / Comment(s): SMOKES MARIJUANA- last used today - Past Family History Mother Family Medical History: No Reported History General Exam - General Exam Comments Initial Comments: Sitting in exam room, no acute distress. Limitations: no limitations General appearance: alert, in no apparent distress Head exam: Present: atraumatic, normocephalic, normal inspection Eye exam: Present: normal appearance ENT exam: Present: normal exam Neck exam: Present: normal inspection Respiratory exam: Present: normal lung sounds bilaterally. Absent: respiratory distress Cardiovascular Exam: Present: regular rate, normal rhythm, normal heart sounds GI/Abdominal exam: Present: soft, normal bowel sounds. Absent: distended, tenderness, guarding, rebound, rigid Extremities exam: Present: full ROM, pedal edema (Bilateral pitting leg edema), other (Capillary refill less than 2 seconds, 2+ dorsal pedal and posterior tibial pulses bilaterally.). Absent: normal inspection Back exam: Present: normal inspection Neurological exam: Present: alert, oriented X3 Psychiatric exam: Present: normal affect, normal mood Skin exam: Present: warm, dry, intact, normal color. Absent: rash Course Vital Signs 10/29/16 10/29/16 16:09 19:59 Temperature 97.6 F Pulse Rate 71 71 Respiratory 16 16 Rate Blood Pressure 136/75 119/66 O2 Sat by Pulse 100 98 Oximetry EKG Findings - EKG Comments: EKG Findings:: Normal sinus rhythm, ventricular rate 68 bpm, CO interval 170 ms , QRS duration 76 ms, QT/QTC 398/423 ms Medical Decision Making - Medical Decision Making Patient is a 46-year-old male presents to the emergency room with bilateral leg swelling. Patient noted to have bilateral pitting leg edema. WBC elevated. BNP elevated. Cardiac enzymes within normal limits. Case discussed with Dr. Painter. Case also discussed with CECILIA Victor and agreed to admit for Dr. Weston. Plan discussed with patient. - Lab Data Result diagrams: 10/29/16 18:10 10/29/16 18:10 Lab Results 10/29/16 10/29/16 10/29/16 Range/Units 18:10 18:10 18:10 WBC 17.1 H (3.8-10.6) k/uL RBC 2.90 L (3.80-5.40) m/uL Hgb 10.4 L (11.4-16.0) gm/dL Hct 34.1 (34.0-46.0) % MCV 117.6 H (80.0-100.0) fL MCH 35.9 H (25.0-35.0) pg MCHC 30.6 L (31.0-37.0) g/dL RDW 14.6 (11.5-15.5) % Plt Count 211 (150-450) k/uL Neutrophils % (Manual) 80.0 % Band Neutrophils % 1.0 % Lymphocytes % (Manual) 11.0 % Monocytes % (Manual) 7.0 % Eosinophils % (Manual) 1.0 % Neutrophils # (Manual) 13.9 H (1.3-7.7) k/uL Lymphocytes # (Manual) 1.9 (1.0-4.8) k/uL Monocytes # (Manual) 1.2 H (0-1.0) k/uL Eosinophils # (Manual) 0.2 (0-0.7) k/uL Nucleated RBCs 0 (0-0) /100 WBC Manual Slide Review Performed Polychromasia Present Hypochromasia Slight Anisocytosis (manual) Present Macrocytosis Marked Target Cells Present PT (9.0-12.0) sec INR (<1.1) APTT (22.0-30.0) sec Sodium 138 (137-145) mmol/L Potassium 4.3 (3.5-5.1) mmol/L Chloride 105 (98-107) mmol/L Carbon Dioxide 24 (22-30) mmol/L Anion Gap 9 mmol/L BUN 7 (7-17) mg/dL Creatinine 0.78 (0.52-1.04) mg/dL Est GFR (MDRD) Af Amer >60 (>60 ml/min/1.73 sqM) Est GFR (MDRD) Non-Af >60 (>60 ml/min/1.73 sqM) Glucose 103 H (74-99) mg/dL Calcium 8.9 (8.4-10.2) mg/dL Magnesium 1.8 (1.6-2.3) mg/dL Total Bilirubin 1.3 (0.2-1.3) mg/dL AST 91 H (14-36) U/L ALT 43 (9-52) U/L Alkaline Phosphatase 222 H (38-126) U/L Total Creatine Kinase 25 L (30-135) U/L CK-MB (CK-2) 0.6 (0.0-2.4) ng/mL CK-MB (CK-2) Rel Index 2.4 Troponin I <0.012 (0.000-0.034) ng/mL NT-Pro-B Natriuret Pep pg/mL Total Protein 5.5 L (6.3-8.2) g/dL Albumin 2.6 L (3.5-5.0) g/dL Amylase 49 (30-110) U/L Lipase 87 (23-300) U/L 10/29/16 10/29/16 Range/Units 18:10 18:10 WBC (3.8-10.6) k/uL RBC (3.80-5.40) m/uL Hgb (11.4-16.0) gm/dL Hct (34.0-46.0) % MCV (80.0-100.0) fL MCH (25.0-35.0) pg MCHC (31.0-37.0) g/dL RDW (11.5-15.5) % Plt Count (150-450) k/uL Neutrophils % (Manual) % Band Neutrophils % % Lymphocytes % (Manual) % Monocytes % (Manual) % Eosinophils % (Manual) % Neutrophils # (Manual) (1.3-7.7) k/uL Lymphocytes # (Manual) (1.0-4.8) k/uL Monocytes # (Manual) (0-1.0) k/uL Eosinophils # (Manual) (0-0.7) k/uL Nucleated RBCs (0-0) /100 WBC Manual Slide Review Polychromasia Hypochromasia Anisocytosis (manual) Macrocytosis Target Cells PT 10.6 (9.0-12.0) sec INR 1.1 (<1.1) APTT 23.5 (22.0-30.0) sec Sodium (137-145) mmol/L Potassium (3.5-5.1) mmol/L Chloride (98-107) mmol/L Carbon Dioxide (22-30) mmol/L Anion Gap mmol/L BUN (7-17) mg/dL Creatinine (0.52-1.04) mg/dL Est GFR (MDRD) Af Amer (>60 ml/min/1.73 sqM) Est GFR (MDRD) Non-Af (>60 ml/min/1.73 sqM) Glucose (74-99) mg/dL Calcium (8.4-10.2) mg/dL Magnesium (1.6-2.3) mg/dL Total Bilirubin (0.2-1.3) mg/dL AST (14-36) U/L ALT (9-52) U/L Alkaline Phosphatase (38-126) U/L Total Creatine Kinase (30-135) U/L CK-MB (CK-2) (0.0-2.4) ng/mL CK-MB (CK-2) Rel Index Troponin I (0.000-0.034) ng/mL NT-Pro-B Natriuret Pep 962 pg/mL Total Protein (6.3-8.2) g/dL Albumin (3.5-5.0) g/dL Amylase (30-110) U/L Lipase (23-300) U/L - Radiology Data Radiology results: report reviewed, image reviewed Disposition Clinical Impression: Bilateral leg edema Disposition: ADMITTED IP TO THIS [facility] Condition: Stable Referrals: Patricia Alvarez MD [Primary Care Provider] - 1-2 days Decision Date: 10/29/16
[2016-10-29 18:30] LABS: ALT 43 U/L (9-52); AST 91 U/L (14-36); Alkaline Phosphatase 222 U/L (38-126); Amylase 49 U/L (30-110); Anion Gap 9 mmol/L; Blood Urea Nitrogen 7 mg/dL (7-17); Calcium 8.9 mg/dL (8.4-10.2); Carbon Dioxide 24 mmol/L (22-30); Chloride 105 mmol/L (98-107); Glucose 103 mg/dL (74-99); Magnesium 1.8 mg/dL (1.6-2.3); Non-African American GFR(MDRD) >60 (>60 ml/min/1.73 sqM); Potassium 4.3 mmol/L (3.5-5.1); Sodium 138 mmol/L (137-145); Total Bilirubin 1.3 mg/dL (0.2-1.3); Total Protein 5.5 g/dL (6.3-8.2)
[2016-10-29 18:40] LABS: CH 35.8; CHCM 30.6; HCT 34.1 % (34.0-46.0); HDW 2.36; HGB 10.4 gm/dL (11.4-16.0); Hypochromasia Slight; MCH 35.9 pg (25.0-35.0); MCHC 30.6 g/dL (31.0-37.0); MCV 117.6 fL (80.0-100.0); Macrocytosis Marked; Mean Platelet Volume 7.8; RDW 14.6 % (11.5-15.5); WBC 17.1 k/uL (3.8-10.6); WBC (Perox) 17.16
[2016-10-29 18:41] LABS: Creatine Kinase 25 U/L (30-135)
[2016-10-29 18:44] LABS: INR 1.1 (<1.1); Partial Thromboplastin Time 23.5 sec (22.0-30.0); Prothrombin Time 10.6 sec (9.0-12.0)
[2016-10-29 18:54] LABS: Creatine Kinase MB 0.6 ng/mL (0.0-2.4); Troponin I <0.012 ng/mL (0.000-0.034)
[2016-10-29 19:10] LABS: Add Differential Manual Differential
[2016-10-29 19:12] LABS: Nucleated Red Blood Cells 0 /100 WBC (0-0); Total Cells Counted 100
[2016-10-29 19:13] LABS: Manual Review Performed; Polychromasia Present; Target Cells Present
[2016-10-29] MEDS ORDERED: FUROSEMIDE 10 MG/ML 4 ML VIAL IV STA (19:17)
--- NOTE | 2016-10-29 19:19 | XR ---
EXAMINATION TYPE: XR chest 2V DATE OF EXAM: 10/29/2016 7:04 PM COMPARISON: April 04, 2016 HISTORY: Bilateral leg swelling and abdominal distention with chest pain TECHNIQUE: Frontal and lateral views of the chest are obtained. FINDINGS: There is no focal air space opacity, pleural effusion, or pneumothorax seen. The cardiac silhouette size is within normal limits. The osseous structures are intact. IMPRESSION: No acute cardiopulmonary process.
[2016-10-29] MEDS ORDERED: NALOXONE 0.4 MG/ML 1 ML VIAL IV PRN (19:40)
[2016-10-29] MEDS ORDERED: IBUPROFEN 400 MG TAB PO PRN (19:40)
[2016-10-29 20:40] LABS: Appearance,Urine Cloudy (Clear); Bilirubin,Urine Negative (Negative); Glucose,Urine (UA) Negative (Negative); Ketones,Urine Negative (Negative); Leukocyte Esterase,Urine Large (Negative); Nitrite,Urine Negative (Negative); Particle Count 4460; Protein,Urine Negative (Negative); RBC,Urine 6 /hpf (0-5); Specific Gravity,Urine 1.006 (1.001-1.035); Squamous Epithelial Cell,Urine 18 /hpf (0-4); UA Billing (MACRO vs. MICRO) MICRO; Urobilinogen,Urine <2.0 mg/dL (<2.0); WBC,Urine 6 /hpf (0-5)
[2016-10-29] MEDS ORDERED: LORazepam 2 MG/ML SYRINGE IV PRN ×6 (20:48→23:29)
[2016-10-29] MEDS ORDERED: NICOTINE 21MG/24HR PATCH TRANSDERM SCH (21:00)
[2016-10-29] MEDS: ALBUTEROL NEBULIZED 2.5 MG/3 ML INHALATION PRN (21:37)
[2016-10-29 21:44] VITALS: BMI 20.9
[2016-10-29] MEDS: LORazepam 1 MG TAB PO PRN (21:59)
[2016-10-30] MEDS: LEVOTHYROXINE 88 MCG TAB PO SCH (05:31)
[2016-10-30] MEDS: NICOTINE 21MG/24HR PATCH TRANSDERM SCH (09:05)
[2016-10-30] MEDS: THIAMINE 100 MG TAB PO SCH (09:05)
[2016-10-30] MEDS: LORazepam 1 MG TAB PO PRN ×2 (09:05→20:40)
[2016-10-30] MEDS: PANTOPRAZOLE 40 MG TABLET PO SCH (09:05)
[2016-10-30] MEDS: LORATADINE 10 MG TAB PO SCH (09:05)
[2016-10-30] MEDS: LIPASE 5,000/PROTEASE 17,000/AMYLASE 27,0000 PO SCH ×3 (09:05→16:53)
[2016-10-30] MEDS: SYMBICORT 160-4.5 MCG INHALER INHALATION SCH ×2 (10:10→19:55)
[2016-10-30] MEDS: TIOTROPIUM 18 MCG/PUFF INHALER INHALATION SCH (11:15)
[2016-10-30] MEDS: ALBUTEROL NEBULIZED 2.5 MG/3 ML INHALATION PRN (11:18)
[2016-10-30] MEDS: MORPHINE SULFATE 4 MG/ML SYRINGE IV PRN ×2 (16:51→22:36)
[2016-10-30] MEDS ORDERED: ALPRAZolam 0.25 MG TAB PO PRN (18:57)
[2016-10-30] MEDS ORDERED: HYDROmorphone 1 MG/ML 1 ML SYRINGE IVP PRN (18:57)
[2016-10-30] MEDS: SPIRONOLACTONE 25 MG TAB PO SCH (20:30)
[2016-10-30] MEDS: FUROSEMIDE 10 MG/ML 4 ML VIAL IV SCH (20:31)
--- NOTE | 2016-10-30 21:16 | HP ---
DATE OF ADMISSION: 10/29/2016 CHIEF COMPLAINT: Water retention. HISTORY OF PRESENT ILLNESS: This 46-year-old woman with a past medical history of COPD, GERD, hypertension, hypothyroidism, history of fatty liver, history of anxiety, history of nicotine dependence being followed by Dr. Patricia Alvarez in the outpatient setting, was complaining of weight gain. The patient was recently admitted to [facility] with complaints of epigastric abdominal pain. The patient alcoholic hepatitis, alcohol withdrawal, alcohol abuse, and the patient went home. The patient apparently has cut down the alcohol intake significantly, but currently the patient is reporting about 20 pound weight loss and as well as bilateral leg edema and cough and sputum and multiple symptomatology. The patient came to [facility] and admitted for further evaluation and treatment. The patient finished prednisone taper about 3 days ago. There is no history of fever, rigors or chills. There is no history of headache, loss of consciousness or seizures. WBC 17.1, hemoglobin 10.4, alkaline phosphatase 222. UA shows cloudy leukocyte esterase as well as serum alcohol less than 10. Past medical history: 1. History of ETOH. 2. History of gastroesophageal reflux disease. 3. Hypertension. 4. Hypothyroidism. 5. Chronic obstructive pulmonary disease. 6. Alcoholic liver hepatitis. 7. Anxiety. 8. Nicotine dependence. Medications prior to admission include home medications are: 1. Spiriva 1 puff daily. 2. Vitamin B 100 mg p.o. b.i.d. 3. Prilosec 20 mg p.o. daily. 4. Zenpep 2 capsules t.i.d. with meals. 5. Synthroid 18 mcg p.o. daily. 6. Ativan 1 mg p.o. t.i.d. 8. Symbicort 160/4.5, 2 puffs b.i.d. 9. Ventolin HFA 2 puffs q.6 p.r.n. ALLERGIES: None. FAMILY HISTORY: History of hepatitis C in the family. SOCIAL HISTORY: History of alcohol, THC, smoking on a daily basis. REVIEW OF SYSTEMS: ENT: No diminished hearing. No diminished vision. CARDIOVASCULAR: No angina or palpitations. RESPIRATORY: No cough. GI: As mentioned earlier. : No dysuria. Nervous system: No numbness, weakness. Allergy/immunology: No asthma or hayfever. MUSCULOSKELETAL: As mentioned earlier. Hematology/Oncology: No history of anemia. Endocrine: Hypothyroidism. Constitutional: As mentioned earlier. Dermatology: negative. Rheumatology; As mentioned earlier. Psychiatric: As mentioned earlier. PHYSICAL EXAMINATION: The patient is alert and oriented x3, pulse is 87, blood pressure 90/57. Respirations 20, temperature 98.3, pulse ox 97% on room air. HEENT: Conjunctivae normal. Oral mucosa moist. NECK: No jugular venous distention. No carotid bruit. No lymph node enlargement. CARDIOVASCULAR: S1 and S2 muffled. No S3, no S4. RESPIRATORY: Breath sounds diminished at the bases. A few scattered rhonchi and crackles. ABDOMEN: Soft, obese, nontender. No mass palpable. Flanks are dull. Legs: Minimal bilateral leg edema present. Nervous system: Higher function as mentioned earlier. Moves all four limbs. LYMPHATICS: No lymph nodes palpable in the neck, axillae or groin. SKIN: No ulcer, rash or bleeding. LABS: WBC 17.1, hemoglobin is 10.4. Otherwise, albumin is 2.6. UA noted. The chest x-ray reviewed which showed no acute cardiopulmonary process. The EKG shows normal low voltage QRS EKG. ASSESSMENT: 1. Generalized edema, weight gain, rule out possibly acute cirrhosis of liver. 2. Rule out congestive heart failure. 3. History of alcoholic hepatitis. 4. Possible alcoholic cirrhosis liver. 5. Chronic obstructive pulmonary disease. 6. Gastroesophageal reflux disease. 7. Hypertension. 8. Hypothyroidism. 9. History of anxiety. 10. History of nicotine dependence. 11. History of continuing alcohol dependence. 12. Possible alcoholic hepatitis. 13. Chronic obstructive pulmonary disease. 14. Increased WBC. 15. Macrocytic anemia, possibly secondary to alcohol. 16. Increase alkaline phosphatase. 17. Hypoalbuminemia with mild to moderate protein calorie malnutrition. 18. Possible urinary tract infection. RECOMMENDATIONS AND DISCUSSION: This 46 -year-old woman presented with multiple complex medical issues, we will monitor the patient closely. Continue the current medications, continue symptomatic treatment. Otherwise, at this time, I would recommend diuretics, monitor fluid and electrolytes balance closely. Monitor weight on a daily basis. Alcohol cessation. CIWA protocol. We will resume the home medications. Continue symptomatic treatment. DVT prophylaxis. Guarded prognosis because of multiple complex medical issues. Further recommendations to follow. Copy of dictation will be forwarded to Dr. Patricia Alvarez who is the primary physician. [facility]
[2016-10-30] MEDS: HEPARIN SODIUM,PORCINE 5,000 UNIT/ML 1 ML VIAL SQ SCH (22:29)
[2016-10-31] MEDS: LEVOTHYROXINE 88 MCG TAB PO SCH (06:47)
[2016-10-31] MEDS: TIOTROPIUM 18 MCG/PUFF INHALER INHALATION SCH (07:40)
[2016-10-31] MEDS: SYMBICORT 160-4.5 MCG INHALER INHALATION SCH ×2 (07:40→19:01)
[2016-10-31] MEDS: NICOTINE 21MG/24HR PATCH TRANSDERM SCH (08:33)
[2016-10-31] MEDS: FUROSEMIDE 10 MG/ML 4 ML VIAL IV SCH ×2 (08:34→21:52)
[2016-10-31] MEDS: LIPASE 5,000/PROTEASE 17,000/AMYLASE 27,0000 PO SCH ×3 (08:34→17:21)
[2016-10-31] MEDS: HEPARIN SODIUM,PORCINE 5,000 UNIT/ML 1 ML VIAL SQ SCH ×2 (08:34→21:52)
[2016-10-31] MEDS: PANTOPRAZOLE 40 MG TABLET PO SCH (08:35)
[2016-10-31] MEDS: SPIRONOLACTONE 25 MG TAB PO SCH ×2 (08:35→17:21)
[2016-10-31] MEDS: LORATADINE 10 MG TAB PO SCH (08:35)
[2016-10-31] MEDS: THIAMINE 100 MG TAB PO SCH (08:37)
[2016-10-31] MEDS: MORPHINE SULFATE 4 MG/ML SYRINGE IV PRN ×2 (08:56→18:36)
[2016-10-31 09:37] LABS: Basophils % (A) 0 %; CH 35.9; CHCM 31.3; Eosinophils # (A) 0.2 k/uL (0-0.7); Eosinophils % (A) 2 %; HCT 30.5 % (34.0-46.0); HDW 2.44; HGB 9.6 gm/dL (11.4-16.0); Hypochromasia Slight; Luc % (Auto) 2; Lymphocytes # (A) 1.3 k/uL (1.0-4.8); Lymphocytes % (A) 11 %; MCH 36.4 pg (25.0-35.0); MCHC 31.5 g/dL (31.0-37.0); MCV 115.5 fL (80.0-100.0); Macrocytosis Marked; Monocytes # (A) 0.6 k/uL (0-1.0); Monocytes % (A) 4 %; Neutrophils # (A) 10.3 k/uL (1.3-7.7); Neutrophils % (A) 82 %; RBC 2.64 m/uL (3.80-5.40); RDW 14.7 % (11.5-15.5); WBC 12.6 k/uL (3.8-10.6)
[2016-10-31 10:09] LABS: ALT 50 U/L (9-52); AST 144 U/L (14-36); Alkaline Phosphatase 172 U/L (38-126); Anion Gap 8 mmol/L; Blood Urea Nitrogen 7 mg/dL (7-17); Calcium 8.5 mg/dL (8.4-10.2); Carbon Dioxide 28 mmol/L (22-30); Chloride 106 mmol/L (98-107); Glucose 129 mg/dL (74-99); Non-African American GFR(MDRD) >60 (>60 ml/min/1.73 sqM); Sodium 142 mmol/L (137-145); Total Bilirubin 1.4 mg/dL (0.2-1.3)
[2016-10-31 10:21] LABS: Manual Review Performed
[2016-10-31 10:22] LABS: Target Cells Present
[2016-10-31] MEDS: LORazepam 1 MG TAB PO PRN (10:24)
--- NOTE | 2016-10-31 19:31 | PN ---
DATE OF SERVICE: 10/31/2016 This 46-year-old woman who was admitted with generalized edema, weight gain, possibly has cirrhosis of the liver. CHF also needs to be ruled out. Workup is in progress at this time. The patient is on diuretics. Patient is feeling much better already. A 2-D echo with Doppler was ordered. PAST MEDICAL HISTORY: Reviewed. REVIEW OF SYSTEMS: CARDIOVASCULAR: As mentioned earlier. RESPIRATORY: As mentioned earlier. GI: As mentioned earlier. : No dysuria. NERVOUS: No numbness or weakness. Current medications are reviewed and include: 1. Xanax 0.5 t.i.d. 2. Ventolin. 3. Symbicort 160/4.5 b.i.d. 4. Rocephin. 5. Lasix 40 mg IV b.i.d. 6. Motrin. 7. Synthroid. 8. Ativan. 9. Narcan. 10. Protonix and 11. Aldactone. PHYSICAL EXAMINATION: Patient alert and oriented x3. Pulse is 65, blood pressure 119/70, respiration 19, temperature 96.8, pulse ox 90% on room air. HEENT: Conjunctivae normal. NECK: No jugular venous distension. CARDIOVASCULAR: S1 and S2 muffled. RESPIRATORY: Breath sounds diminished in the bases. A few scattered rhonchi. ABDOMEN: Soft, obese. LEGS: Minimal edema. NERVOUS SYSTEM: Diffusely weak. LABS: WBC 12.6, hemoglobin is 9.6. Glucose 129. Total bilirubin is 1.4 and AST is 144. ASSESSMENT: 1. Generalized edema, weight gain. Rule out possibility of cirrhosis of the liver and anasarca. 2. Rule out congestive heart failure acute exacerbation. 3. History of alcoholic hepatitis. 4. Possible alcoholic cirrhosis of the liver. 5. History of chronic obstructive pulmonary disease. 6. Gastroesophageal reflux disease. 7. Hypertension. 8. Hypothyroidism. 9. History of anxiety. 10. History of nicotine dependence. 11. History of continued ongoing EtOH. 12. Possible alcoholic hepatitis. 13. Chronic obstructive pulmonary disease. 14. Increased WBC. 15. Macrocytic anemia, possibly secondary to alcohol. 16. Increased alkaline phosphatase. 17. Hypoalbuminemia with mild to moderate protein-calorie malnutrition. 18. Possible urinary tract infection. 19. FULL CODE. RECOMMENDATIONS AND DISCUSSION: In this 46-year-old woman who presented with multiple complex medical issues, we will monitor the patient closely, continue with current monitoring, continue with symptomatic treatment. The patient appears to be losing some weight at this time. Urine output is also being monitored at this time. Otherwise, continue the rest of the medications. A 2-D echo with Doppler. Guarded prognosis. Further recommendations to follow.
[2016-11-01] MEDS: MORPHINE SULFATE 4 MG/ML SYRINGE IV PRN ×3 (00:15→14:00)
[2016-11-01] MEDS: LEVOTHYROXINE 88 MCG TAB PO SCH (06:22)
[2016-11-01] MEDS: SYMBICORT 160-4.5 MCG INHALER INHALATION SCH ×2 (07:59→19:24)
[2016-11-01] MEDS: TIOTROPIUM 18 MCG/PUFF INHALER INHALATION SCH (08:00)
[2016-11-01] MEDS: THIAMINE 100 MG TAB PO SCH (08:17)
[2016-11-01] MEDS: LIPASE 5,000/PROTEASE 17,000/AMYLASE 27,0000 PO SCH ×3 (08:17→16:30)
[2016-11-01] MEDS: PANTOPRAZOLE 40 MG TABLET PO SCH (08:17)
[2016-11-01] MEDS: HEPARIN SODIUM,PORCINE 5,000 UNIT/ML 1 ML VIAL SQ SCH ×2 (08:17→21:54)
[2016-11-01] MEDS: LORATADINE 10 MG TAB PO SCH (08:17)
[2016-11-01] MEDS: NICOTINE 21MG/24HR PATCH TRANSDERM SCH (08:17)
[2016-11-01] MEDS: FUROSEMIDE 10 MG/ML 4 ML VIAL IV SCH (08:17)
[2016-11-01] MEDS: SPIRONOLACTONE 25 MG TAB PO SCH ×2 (08:17→16:31)
[2016-11-01 09:04] LABS: ALT 42 U/L (9-52); AST 205 U/L (14-36); Alkaline Phosphatase 176 U/L (38-126); Anion Gap 7 mmol/L; Blood Urea Nitrogen 7 mg/dL (7-17); Calcium 8.6 mg/dL (8.4-10.2); Carbon Dioxide 35 mmol/L (22-30); Chloride 98 mmol/L (98-107); Glucose 126 mg/dL (74-99); Non-African American GFR(MDRD) >60 (>60 ml/min/1.73 sqM); Potassium 3.8 mmol/L (3.5-5.1); Sodium 140 mmol/L (137-145); Total Bilirubin 1.3 mg/dL (0.2-1.3); Total Protein 5.1 g/dL (6.3-8.2)
[2016-11-01 09:22] LABS: Basophils # (A) 0.1 k/uL (0-0.2); Basophils % (A) 1 %; CH 35.6; CHCM 30.4; Eosinophils # (A) 0.2 k/uL (0-0.7); Eosinophils % (A) 2 %; HCT 31.5 % (34.0-46.0); HDW 2.38; HGB 9.7 gm/dL (11.4-16.0); Hypochromasia Moderate; Luc # (Auto) 0.18; Luc % (Auto) 2; Lymphocytes # (A) 1.6 k/uL (1.0-4.8); Lymphocytes % (A) 14 %; MCH 36.2 pg (25.0-35.0); MCHC 30.8 g/dL (31.0-37.0); MCV 117.7 fL (80.0-100.0); Macrocytosis Marked; Mean Platelet Volume 7.7; Monocytes # (A) 0.5 k/uL (0-1.0); Monocytes % (A) 5 %; Neutrophils # (A) 8.8 k/uL (1.3-7.7); Neutrophils % (A) 78 %; RBC 2.67 m/uL (3.80-5.40); RDW 14.6 % (11.5-15.5); WBC 11.4 k/uL (3.8-10.6); WBC (Perox) 12.29
[2016-11-01 09:54] LABS: Polychromasia Present
[2016-11-01] MEDS: LORazepam 1 MG TAB PO PRN ×2 (10:32→16:30)
--- NOTE | 2016-11-01 14:16 | ECHOF ---
Referral Reason:edema MEASUREMENTS -------- HEIGHT: 162.6 cm WEIGHT: 51.7 kg BP: 103/59 IVSd: 0.7 cm (0.6 - 1.1) LVIDd: 3.2 cm (3.9 - 5.3) LVPWd: 0.9 cm (0.6 - 1.1) IVSs: 1.2 cm LVIDs: 2.3 cm LVPWs: 1.4 cm Ao Diam: 3.2 cm (2.0 - 3.7) AV Cusp: 2.0 cm (1.5 - 2.6) LA Diam: 1.8 cm (2.7 - 3.8) MV EXCURSION: 20.586 mm (> 18.000) MV EF SLOPE: 72 mm/s (70 - 150) EPSS: 1.7 cm MV E Alejandro: 1.10 m/s MV DecT: 172 ms MV A Alejandro: 0.98 m/s MV E/A Ratio: 1.13 RAP: 5.00 mmHg RVSP: 15.73 mmHg FINDINGS -------- Sinus rhythm. This was a technically good study. Left ventricular wall thickness is normal. Overall left ventricular systolic function is normal with, an EF between 55 - 60 %. The right ventricle is normal in size and function. The left atrium is normal in size. The right atrium is normal in size. The aortic valve was not well visualized. There is trace mitral regurgitation. Trace tricuspid regurgitation present. The right ventricular systolic pressure, as measured by Doppler, is 15.73mmHg. Pulmonic valve appears structurally normal. The aortic root size is normal. The pericardium is normal. CONCLUSIONS -------- 1. Sinus rhythm. 2. Trace tricuspid regurgitation present. 3. The right ventricular systolic pressure, as measured by Doppler, is 15.73mmHg. 4. Pulmonic valve appears structurally normal. 5. The aortic root size is normal. 6. The pericardium is normal. 7. This was a technically good study. 8. Left ventricular wall thickness is normal. 9. Overall left ventricular systolic function is normal with, an EF between 55 - 60 %. 10. The right ventricle is normal in size and function. 11. The left atrium is normal in size. 12. The right atrium is normal in size. 13. The aortic valve was not well visualized. 14. There is trace mitral regurgitation. PHYSICAL THERAPY MANAGER: Rochelle Sierra RDCS
[2016-11-01] MEDS: GABAPENTIN 100 MG CAP PO SCH (21:54)
[2016-11-02] MEDS: LEVOTHYROXINE 88 MCG TAB PO SCH (06:38)
[2016-11-02] MEDS: TIOTROPIUM 18 MCG/PUFF INHALER INHALATION SCH (07:50)
[2016-11-02] MEDS: SYMBICORT 160-4.5 MCG INHALER INHALATION SCH ×2 (07:51→18:57)
[2016-11-02] MEDS: SPIRONOLACTONE 25 MG TAB PO SCH ×2 (08:12→15:35)
[2016-11-02] MEDS: PANTOPRAZOLE 40 MG TABLET PO SCH (08:12)
[2016-11-02] MEDS: FUROSEMIDE 40 MG TAB PO SCH ×2 (08:12→15:35)
[2016-11-02] MEDS: THIAMINE 100 MG TAB PO SCH (08:12)
[2016-11-02] MEDS: NICOTINE 21MG/24HR PATCH TRANSDERM SCH (08:12)
[2016-11-02] MEDS: HEPARIN SODIUM,PORCINE 5,000 UNIT/ML 1 ML VIAL SQ SCH ×2 (08:12→21:05)
[2016-11-02] MEDS: LIPASE 5,000/PROTEASE 17,000/AMYLASE 27,0000 PO SCH ×3 (08:12→17:37)
[2016-11-02] MEDS: GABAPENTIN 100 MG CAP PO SCH ×2 (08:13→21:05)
[2016-11-02] MEDS: LORATADINE 10 MG TAB PO SCH (08:13)
[2016-11-02] MEDS: LORazepam 1 MG TAB PO PRN ×2 (08:37→21:05)
--- NOTE | 2016-11-02 09:57 | PN ---
DATE OF SERVICE: 11/01/2016 This 46-year-old woman who was admitted with generalized edema also had features of cirrhosis. No chest pain or palpitations. No diarrhea. On exam, alert, oriented. Pulse 75, blood pressure 120/70, respirations 20, temperature 97, pulse ox 96% on room air. HEENT: Conjunctivae normal. NECK: No JVD. CARDIOVASCULAR: S1 and S2 muffled. LUNGS: Breath sounds diminished. ABDOMEN: Soft, mild distention. EXTREMITIES: No edema. NERVOUS SYSTEM: No focal deficit. A 2-D echo showed an ejection fraction of 58% to 60%. Otherwise labs, 2-D noted. Chest x-ray, no acute process. WBC 11.7, hemoglobin 9.7, MCV 117. Influenza negative. ASSESSMENT: 1. Generalized edema, weight gain, possibly cirrhosis of the liver with anasarca. 2. Congestive heart failure unlikely. 3. History of alcoholic hepatitis. 4. Alcoholic cirrhosis of the liver, possibly. 5. History of chronic obstructive pulmonary disease. 6. Gastroesophageal reflux disease. 7. Hypertension. 8. Hypothyroidism. 9. History of anxiety. 10. History of nicotine dependence. 11. Continued ongoing EtOH. 12. Increased WBC. 13. Macrocytic anemia, possibly secondary to alcohol. 14. Increased alkaline phosphatase. 15. Mild to moderate protein calorie malnutrition. 16. Urinary tract infection. 17. FULL CODE. RECOMMENDATIONS: Recommend to continue current medications. Continue symptomatic treatment. Otherwise, continue with broad spectrum IV antibiotics. Continue with the diuretics. Change diuretics to p.o. Stop IV. Continue to monitor. The patient is also on empiric antibiotics as well. Overall, the patient has had significant improvement. Further recommendations to follow.
[2016-11-02 10:25] LABS: Basophils % (A) 1 %; CH 35.4; CHCM 30.4; Eosinophils # (A) 0.1 k/uL (0-0.7); Eosinophils % (A) 1 %; HCT 28.3 % (34.0-46.0); HDW 2.35; HGB 8.6 gm/dL (11.4-16.0); Hypochromasia Moderate; Luc # (Auto) 0.28; Luc % (Auto) 3; Lymphocytes # (A) 1.4 k/uL (1.0-4.8); Lymphocytes % (A) 14 %; MCH 35.7 pg (25.0-35.0); MCHC 30.5 g/dL (31.0-37.0); Macrocytosis Marked; Mean Platelet Volume 7.8; Monocytes # (A) 0.5 k/uL (0-1.0); Monocytes % (A) 5 %; Neutrophils # (A) 7.4 k/uL (1.3-7.7); Neutrophils % (A) 76 %; RBC 2.42 m/uL (3.80-5.40); RDW 14.4 % (11.5-15.5); WBC 9.8 k/uL (3.8-10.6); WBC (Perox) 9.91
[2016-11-02 10:39] LABS: ALT 50 U/L (9-52); AST 214 U/L (14-36); Alkaline Phosphatase 153 U/L (38-126); Anion Gap 5 mmol/L; Blood Urea Nitrogen 6 mg/dL (7-17); Calcium 8.3 mg/dL (8.4-10.2); Carbon Dioxide 33 mmol/L (22-30); Chloride 102 mmol/L (98-107); Glucose 144 mg/dL (74-99); Non-African American GFR(MDRD) >60 (>60 ml/min/1.73 sqM); Potassium 3.4 mmol/L (3.5-5.1); Sodium 140 mmol/L (137-145); Total Bilirubin 0.7 mg/dL (0.2-1.3); Total Protein 4.5 g/dL (6.3-8.2)
[2016-11-02 10:45] LABS: Polychromasia Present
[2016-11-02] MEDS: MORPHINE SULFATE 4 MG/ML SYRINGE IV PRN (14:49)
[2016-11-02] MEDS: HYDROcodone/APAP 7.5-325MG 1 EACH TAB PO PRN (23:12)
[2016-11-03] MEDS: LEVOTHYROXINE 88 MCG TAB PO SCH (06:21)
[2016-11-03] MEDS: HYDROcodone/APAP 7.5-325MG 1 EACH TAB PO PRN (06:25)
[2016-11-03 07:58] VITALS: BP 98/55; PULSE 20; RESP 20; TEMP 97.2
[2016-11-03] MEDS: HEPARIN SODIUM,PORCINE 5,000 UNIT/ML 1 ML VIAL SQ SCH (08:57)
[2016-11-03] MEDS: LIPASE 5,000/PROTEASE 17,000/AMYLASE 27,0000 PO SCH ×2 (08:57→12:36)
[2016-11-03] MEDS: NICOTINE 21MG/24HR PATCH TRANSDERM SCH (08:57)
[2016-11-03] MEDS: GABAPENTIN 100 MG CAP PO SCH (08:57)
[2016-11-03] MEDS: THIAMINE 100 MG TAB PO SCH (08:58)
[2016-11-03] MEDS: FUROSEMIDE 40 MG TAB PO SCH (08:58)
[2016-11-03] MEDS: LORATADINE 10 MG TAB PO SCH (08:58)
[2016-11-03] MEDS: PANTOPRAZOLE 40 MG TABLET PO SCH (08:58)
[2016-11-03] MEDS: SPIRONOLACTONE 25 MG TAB PO SCH (08:59)
[2016-11-03] MEDS: LORazepam 1 MG TAB PO PRN (09:08)
[2016-11-03] MEDS: SYMBICORT 160-4.5 MCG INHALER INHALATION SCH (09:12)
[2016-11-03] MEDS: TIOTROPIUM 18 MCG/PUFF INHALER INHALATION SCH (09:12)
[2016-11-03 10:01] LABS: Basophils # (A) 0.1 k/uL (0-0.2); Basophils % (A) 1 %; CH 35.7; CHCM 30.2; Eosinophils # (A) 0.1 k/uL (0-0.7); Eosinophils % (A) 1 %; HCT 29.3 % (34.0-46.0); HDW 2.41; HGB 8.7 gm/dL (11.4-16.0); Hypochromasia Moderate; Luc # (Auto) 0.37; Luc % (Auto) 4; Lymphocytes # (A) 1.8 k/uL (1.0-4.8); Lymphocytes % (A) 17 %; MCH 35.3 pg (25.0-35.0); MCHC 29.7 g/dL (31.0-37.0); MCV 118.9 fL (80.0-100.0); Macrocytosis Marked; Mean Platelet Volume 8.9; Monocytes # (A) 0.6 k/uL (0-1.0); Monocytes % (A) 6 %; Neutrophils # (A) 7.4 k/uL (1.3-7.7); Neutrophils % (A) 72 %; RBC 2.46 m/uL (3.80-5.40); RDW 14.7 % (11.5-15.5); WBC 10.3 k/uL (3.8-10.6); WBC (Perox) 10.77
--- NOTE | 2016-11-03 10:26 | PN ---
DATE OF SERVICE: 11/02/2016 This 46-year-old woman who was admitted with generalized edema and weight gain, has possible cirrhosis of the liver. No chest pain or palpitations. No fever. On exam, alert and oriented x3. Pulse 80, blood pressure 120/75, respirations 16, temperature 98.8, pulse ox 93% on room air. HEENT: Conjunctivae normal. NECK: No JVD. CARDIOVASCULAR: S1 and S2 muffled. LUNGS: Breath sounds are diminished at the bases. No rhonchi, no crackles. ABDOMEN: Soft, minimal distention. EXTREMITIES: Legs, no edema. NEUROLOGIC: No focal deficits. LABS: WBC 9.3, hemoglobin 8.6, MCV 170, potassium 3.4. ASSESSMENT: 1. Generalized edema and weight gain, possibly cirrhosis of the liver with anasarca. 2. Congestive heart failure unlikely due to normal 2-D echo. 3. History of alcoholic hepatitis. 4. Alcoholic cirrhosis of the liver possibly. 5. History of COPD. 6. Gastroesophageal reflux disease. 7. Hypertension. 8. Hypothyroidism. 9. History of anxiety. 10. History of nicotine dependence. 11. Ongoing EtOH. 12. Increased WBC. 13. Macrocytic anemia, possibly secondary to alcohol. 14. Increased alkaline phosphatase. 15. Mild to moderate protein calorie malnutrition. 16. Urinary tract infection. 17. FULL CODE. RECOMMENDATIONS AND DISCUSSION: In this 46-year-old woman who presented with multiple complex medical issues, we will monitor the patient closely. Congestive heart failure is thought to be unlikely. Continue the diuretics. Increase ambulation. Guarded prognosis. Further recommendations to follow. See orders for further details.
[2016-11-03 10:28] LABS: ALT 42 U/L (9-52); AST 152 U/L (14-36); Alkaline Phosphatase 169 U/L (38-126); Anion Gap 7 mmol/L; Blood Urea Nitrogen 8 mg/dL (7-17); Calcium 8.1 mg/dL (8.4-10.2); Carbon Dioxide 32 mmol/L (22-30); Chloride 101 mmol/L (98-107); Glucose 127 mg/dL (74-99); Non-African American GFR(MDRD) >60 (>60 ml/min/1.73 sqM); Potassium 3.5 mmol/L (3.5-5.1); Sodium 140 mmol/L (137-145); Total Bilirubin 0.7 mg/dL (0.2-1.3); Total Protein 4.7 g/dL (6.3-8.2)
[2016-11-03 11:26] LABS: Target Cells Present
[2016-11-03 12:03] LABS: Magnesium 1.5 mg/dL (1.6-2.3)
[2016-11-03] MEDS ORDERED: POTASSIUM CHLORIDE ER 20 MEQ TAB.ER PO STA (12:12)
[2016-11-03] MEDS ORDERED: MAGNESIUM OXIDE 400 MG TAB PO STA (12:13)
[2016-11-03] MEDS ORDERED: MAGNESIUM SULFATE-D5W PMX 1 GM in DEXTROSE/WATER 1 100ML.BAG IVPB ONE (12:14)
[2016-11-03] MEDS: MAGNESIUM SULFATE-D5W PMX 1 GM in DEXTROSE/WATER 1 100ML.BAG IVPB SCH ×2 (12:35→14:24)
--- NOTE | 2016-11-04 15:51 | DS ---
DATE OF ADMISSION: 10/29/2016 DATE OF DISCHARGE: 11/03/2016 FINAL DIAGNOSES: 1. Generalized edema and weight gain, possibly cirrhosis of the liver and anasarca. 2. Congestive heart failure unlikely due to normal 2-D echo. 3. History of alcoholic hepatitis. 4. Alcoholic cirrhosis of the liver possibly. 5. History of chronic obstructive pulmonary disease. 6. History of gastroesophageal reflux disease. 7. Hypertension. 8. History of hypothyroidism. 9. History of anxiety. 10. History of nicotine dependence. 11. Ongoing EtOH. 12. Increased WBC. 13. Macrocytic anemia, possibly secondary to alcohol. 14. Increased alkaline phosphatase. 15. Mild to moderate protein calorie malnutrition. 16. Urinary tract infection. 17. Chronic pancreatitis. 18. FULL CODE. DISCHARGE DISPOSITION: Patient will be discharged in stable condition with guarded prognosis. HISTORY OF PRESENT ILLNESS: This 46-year-old woman with a past medical history of multiple medical problems including generalized edema. Patient was treated symptomatically, possibly cirrhosis was considered. The patient improved significantly. On exam, vitals are stable. CARDIOVASCULAR SYSTEM: S1, S2. ABDOMEN: Soft. NERVOUS SYSTEM: No focal deficits. The 2-D echo was normal. CHF was ruled out. The patient discharged in a stable condition with guarded prognosis with the followin. Diet is cardiac. 2. Activity limited until follow up. 3. Follow up with Dr. Patricia Alvarez in 2 to 3 days. 4. CBC, BMP and outpatient follow-up. 5. Fluid restriction 1200 mL per 24 hours. The medications are: 1. Ventolin HFA 2 puffs q.i.d. and p.r.n. 2. Symbicort 160/4.5, 2 puffs b.i.d. 3. Ceftin 500 mg p.o. b.i.d. for 3 days. 4. Zyrtec 10 mg p.o. daily. 5. Folic acid 1 mg daily. 6. Lasix 40 mg p.o. daily. 7. Hydrocodone 5 mg q.6. 8. Ativan 1 mg p.o. t.i.d. p.r.n. 9. Synthroid 88 mcg p.o. daily. 10. Zenpep 2 capsules p.o. t.i.d. 11. .d. also to chronic pancreatitis includes 12. Multivitamins 1 p.o. daily. 13. Habitrol 21 daily. 14. Prilosec 20 mg daily. 15. Aldactone 50 mg p.o. b.i.d. 16. Thiamine 100 mg p.o. daily. 17. Spiriva 1 puff daily. Attend AA and rehab which the patient had arranged apparently.
== END 2016-11-03 15:57 | disposition home health service (06) | DRG 433 ==
LOC: EC 16:01 → 4MS4W 19:44 → OBSVTOIN 19:44 → INTOOBSV 19:44
PROVIDERS: ADMIT Hospitalist; ATTEND Hospitalist
DX: K70.30 Alcoholic cirrhosis of liver without ascites (principal); E44.0 Moderate protein-calorie malnutrition; K86.2 Cyst of pancreas; N39.0 Urinary tract infection, site not specified; K86.1 Other chronic pancreatitis; K70.10 Alcoholic hepatitis without ascites; R60.1 Generalized edema; D53.9 Nutritional anemia, unspecified; K76.0 Fatty (change of) liver, not elsewhere classified; E03.9 Hypothyroidism, unspecified; F17.210 Nicotine dependence, cigarettes, uncomplicated; I10 Essential (primary) hypertension; J44.9 Chronic obstructive pulmonary disease, unspecified; K21.9 Gastro-esophageal reflux disease without esophagitis; F10.10 Alcohol abuse, uncomplicated; F41.9 Anxiety disorder, unspecified; F12.90 Cannabis use, unspecified, uncomplicated; B19.20 Unspecified viral hepatitis C without hepatic coma; Z68.20 Body mass index [BMI] 20.0-20.9, adult; Z79.899 Other long term (current) drug therapy
CPT/HCPCS: 36415; 71020; 80053; 80320; 81001; 82150; 82550; 82553; 83690; 83735; 83880; 84484; 85025; 85610; 85730; 87502; 93005; 93306; 94640; 96374; 99284

== ENCOUNTER → 2016-11-25 | Outpatient (CLI) | payer OTHER ==
[2016-11-25 18:04] LABS: CH 34.3; CHCM 30.8; HCT 40.5 % (34.0-46.0); HDW 2.52; Hypochromasia Slight; Lymphocytes % (A) 18 %; MCH 34.5 pg (25.0-35.0); MCHC 30.9 g/dL (31.0-37.0); Macrocytosis Marked; Mean Platelet Volume 7.2; Neutrophils % (A) 72 %; RBC 3.63 m/uL (3.80-5.40); WBC 15.3 k/uL (3.8-10.6)
[2016-11-25 18:05] LABS: Basophils # (A) 0.1 k/uL (0-0.2); Basophils % (A) 1 %; Eosinophils # (A) 0.3 k/uL (0-0.7); Eosinophils % (A) 2 %; Luc # (Auto) 0.28; Luc % (Auto) 2; Lymphocytes # (A) 2.8 k/uL (1.0-4.8); Monocytes # (A) 0.9 k/uL (0-1.0); Monocytes % (A) 6 %
[2016-11-25 18:08] LABS: HGB 12.5 gm/dL (11.4-16.0); MCV 111.7 fL (80.0-100.0)
[2016-11-25 18:28] LABS: ALT 48 U/L (9-52); AST 138 U/L (14-36); Alkaline Phosphatase 140 U/L (38-126); Bilirubin, Delta 0.4 mg/dL (0.0-0.2); Blood Urea Nitrogen 9 mg/dL (7-17); Non-African American GFR(MDRD) >60 (>60 ml/min/1.73 sqM); Total Bilirubin 0.7 mg/dL (0.2-1.3); Total Protein 7.3 g/dL (6.3-8.2)
== END | disposition home or self-care (01) ==
LOC: LABWHC1 17:40
PROVIDERS: ATTEND Family Medicine
DX: R94.6 Abnormal results of thyroid function studies (principal); K70.11 Alcoholic hepatitis with ascites; K86.9 Disease of pancreas, unspecified; D72.829 Elevated white blood cell count, unspecified
CPT/HCPCS: 36415; 80076; 82565; 84439; 84443; 84520; 85025

== ENCOUNTER → 2016-12-17 | Outpatient (CLI) | payer OTHER ==
--- NOTE | 2016-12-17 15:14 | CT ---
EXAMINATION TYPE: CT abdomen w con DATE OF EXAM: 12/17/2016 2:53 PM COMPARISON: 10/15/2011 HISTORY: Upper Abdominal pain,K70.11 Alcoholic Hepatitis, K86.[address] DLP: 993 mGycm Automated exposure control for dose reduction was used. TECHNIQUE: Helical acquisition of images was performed from the lung bases through the top of iliac crest to include entire abdomen. CONTRAST: Performed with Oral Contrast and with IV Contrast, patient injected with 100 mL of Omnipaque 300. FINDINGS: LUNG BASES: No significant abnormality is appreciated. LIVER/GB: There is evidence of hepatic steatosis. Mild intra and extrahepatic biliary ductal dilatati on. PANCREAS: multiple pancreatic calcifications noted compatible with chronic pancreatitis. There is dil atation of the pancreatic duct to 4.7 mm. Priestly described as cystic lesion within the pancreatic t ail is essentially unchanged and measures up to 1.5 cm. SPLEEN: No significant abnormality is seen. ADRENALS: No significant abnormality is seen. KIDNEYS: No significant abnormality is seen. BOWEL: No significant abnormality is seen. LYMPH NODES: No significant abnormality is seen. OSSEOUS STRUCTURES: No significant abnormality is seen. FREE AIR: No free air is visualized. OTHER: IMPRESSION: 1. CHANGES OF CHRONIC PANCREATITIS 2. stable small cystic lesion within the pancreatic tail may reflect a small pseudocyst . Continued f ollow-up is advised. 3. Hepatic steatosis.
== END | disposition home or self-care (01) ==
LOC: RADCTMAIN 13:40
PROVIDERS: ATTEND Family Medicine
DX: K76.0 Fatty (change of) liver, not elsewhere classified (principal); K86.2 Cyst of pancreas; K86.1 Other chronic pancreatitis; K86.9 Disease of pancreas, unspecified
CPT/HCPCS: 74160; Q9967

== ENCOUNTER 2017-03-30 12:04 | Inpatient (IN) | payer MEDICAID, OTHER ==
[2017-03-30] MEDS ORDERED: IPRATROPIUM-ALBUTEROL 3 ML NEB INHALATION STA (12:09)
[2017-03-30] MEDS ORDERED: SODIUM CHLORIDE 0.9% 1,000 ML with MVI, ADULT NO.4 WITH VIT K 10 ML, THIAMINE 100 MG, F... IV ONE ×4 (12:16)
--- NOTE | 2017-03-30 12:16 | ED ---
Psych HPI - General Chief Complaint: Psychiatric Symptoms Stated Complaint: mental health Time Seen by Provider: 03/30/17 12:04 Source: patient, police, EMS, RN notes reviewed Mode of arrival: EMS - History of Present Illness Initial Comments: This is a 46-year-old female history of chronic alcoholism and alcoholic pancreatitis alcohol liver disease who is brought in by police and EMS for evaluation for suicidal thoughts and ideation. She currently drank a gallon of whiskey throughout the night into this morning. She apparently voiced thoughts of hurting herself. A petition was filed by her sister. The patient is somewhat cooperative. She did apparently fall and sustained an abrasion to the right knee her last tetanus shot was the last time she was here she states. No complaints of head neck or back pain. No nausea vomiting or other symptoms MD Complaint: suicidal ideation, feels depressed, other - Related Data Home Medications Medication Instructions Recorded Confirmed Omeprazole [PriLOSEC] 20 mg PO DAILY 07/17/15 03/30/17 Albuterol Inhaler [Ventolin Hfa 2 puff INHALATION RT-Q6H PRN 10/29/16 03/30/17 Inhaler] Budesonide-Formot 160-4.5 Mcg 2 puff INHALATION RT-BID 10/29/16 03/30/17 [Symbicort 160-4.5 Mcg Inhaler] Tiotropium 18 Mcg/Puff [Spiriva] 1 cap INHALATION RT-DAILY 10/29/16 03/30/17 Levothyroxine Sodium [Synthroid] 112 mcg PO DAILY 03/30/17 03/30/17 Spironolactone [Aldactone] 50 mg PO BID 03/30/17 03/30/17 Previous Rx's Medication Instructions Recorded Thiamine [Vitamin B-1] 100 mg PO DAILY #30 tablet 10/18/16 Folic Acid 1 mg PO DAILY #30 tablet 11/03/16 Furosemide [Lasix] 40 mg PO DAILY #30 tab 11/03/16 HYDROcodone/APAP 5-325MG [[place] 1 tab PO Q6HR PRN #20 tab 11/03/16 5-325] Multivitamins, Thera [Multivitamin 1 tab PO DAILY #30 tablet 11/03/16 (formulary)] Nicotine 21Mg/24Hr Patch [Habitrol] 1 patch TRANSDERM DAILY #30 patch 11/03/16 Allergies Allergy/AdvReac Type Severity Reaction Status Date / Time No Known Allergies Allergy Verified 03/30/17 13:39 Review of Systems ROS Statement: Those systems with pertinent positive or pertinent negative responses have been documented in the HPI. ROS Other: All systems not noted in ROS Statement are negative. Past Medical History Past Medical History: COPD, GERD/Reflux, Hypertension, Thyroid Disorder Additional Past Medical History / Comment(s): FATTY LIVER MASS, PANCREATITIS, OCCASIONAL DIARRHEA, STATES RUNNY NOSE-NOT SURE IF IT IS ALLERGIES-DENIES ILLNESS. hep c, etoh absuse History of Any Multi-Drug Resistant Organisms: None Reported Past Surgical History: Tubal Ligation, Uterine Ablation Additional Past Surgical History / Comment(s): TUBAL WITH TUBE REMOVED . Past Anesthesia/Blood Transfusion Reactions: No Reported Reaction Past Psychological History: Anxiety Smoking Status: Current every day smoker Past Alcohol Use History: Daily, Heavy Past Drug Use History: Marijuana - Past Family History Mother Family Medical History: No Reported History Additional Family Medical History / Comment(s): Hep C General Exam - General Exam Comments Initial Comments: This is a well developed asthenic appearing female she does have the smell of alcohol conjoiners on her breath Limitations: altered mental status General appearance: alert, anxious Head exam: Present: atraumatic, normocephalic, normal inspection Eye exam: Present: PERRL, EOMI, other (Injected conjunctiva) ENT exam: Present: normal exam, mucous membranes moist Neck exam: Present: normal inspection. Absent: tenderness, meningismus, lymphadenopathy Respiratory exam: Present: wheezes, decreased breath sounds. Absent: respiratory distress, rales, rhonchi, stridor Cardiovascular Exam: Present: normal rhythm, tachycardia, normal heart sounds. Absent: systolic murmur, diastolic murmur, rubs, gallop, clicks GI/Abdominal exam: Present: soft, normal bowel sounds. Absent: distended, tenderness, guarding, rebound, rigid Extremities exam: Present: full ROM, normal capillary refill, other ( Superficial abrasion seen to the right knee approximately 1.57 years diameter no active bleeding at this time no formed by seen no suture repair indicated. The patient is demonstrating wasting of her peripheral muscles.). Absent: tenderness, pedal edema, joint swelling, calf tenderness Back exam: Present: normal inspection Neurological exam: Present: alert, oriented X3, CN II-XII intact Psychiatric exam: Present: normal affect, normal mood Skin exam: Present: warm, dry, intact, normal color. Absent: rash Course Vital Signs 03/30/17 03/30/17 03/30/17 12:06 12:10 12:21 Temperature 98.0 F Pulse Rate 124 H 120 H 124 H Respiratory 20 Rate Blood Pressure 135/93 O2 Sat by Pulse 95 Oximetry - Reevaluation(s) Reevaluation #1: 03/30/17 13:09 Additional information per the sister/petition filed the patient has been expressing homicidal thoughts to her boyfriend stated she wanted to shoot him. Medical Decision Making - Medical Decision Making The patient will be admitted for evaluation and observation I did discuss case with Dr. Vaz - Lab Data Result diagrams: 03/30/17 12:15 03/30/17 12:15 Lab Results 03/30/17 03/30/17 03/30/17 Range/Units 12:15 12:15 13:15 WBC 14.7 H (3.8-10.6) k/uL RBC 4.23 (3.80-5.40) m/uL Hgb 15.5 (11.4-16.0) gm/dL Hct 43.9 (34.0-46.0) % MCV 103.8 H (80.0-100.0) fL MCH 36.6 H (25.0-35.0) pg MCHC 35.2 (31.0-37.0) g/dL RDW 13.8 (11.5-15.5) % Plt Count 330 (150-450) k/uL Neutrophils % 84 % Lymphocytes % 10 % Monocytes % 4 % Eosinophils % 0 % Basophils % 0 % Neutrophils # 12.2 H (1.3-7.7) k/uL Lymphocytes # 1.5 (1.0-4.8) k/uL Monocytes # 0.6 (0-1.0) k/uL Eosinophils # 0.0 (0-0.7) k/uL Basophils # 0.1 (0-0.2) k/uL Macrocytosis Slight Sodium 135 L (137-145) mmol/L Potassium 3.7 (3.5-5.1) mmol/L Chloride 88 L (98-107) mmol/L Carbon Dioxide 23 (22-30) mmol/L Anion Gap 24 mmol/L BUN 16 (7-17) mg/dL Creatinine 1.12 H (0.52-1.04) mg/dL Est GFR (MDRD) Af Amer >60 (>60 ml/min/1.73 sqM) Est GFR (MDRD) Non-Af 53 (>60 ml/min/1.73 sqM) Glucose 87 (74-99) mg/dL Calcium 9.4 (8.4-10.2) mg/dL Magnesium 1.4 L (1.6-2.3) mg/dL Total Bilirubin 1.5 H (0.2-1.3) mg/dL AST 151 H (14-36) U/L ALT 62 H (9-52) U/L Alkaline Phosphatase 257 H (38-126) U/L Total Protein 8.0 (6.3-8.2) g/dL Albumin 4.7 (3.5-5.0) g/dL Amylase 89 (30-110) U/L Lipase 76 (23-300) U/L Urine Opiates Screen Detected H (NotDetected) Ur Oxycodone Screen Not Detected (NotDetected) Urine Methadone Screen Not Detected (NotDetected) Ur Propoxyphene Screen Not Detected (NotDetected) Ur Barbiturates Screen Not Detected (NotDetected) U Tricyclic Antidepress Not Detected (NotDetected) Ur Phencyclidine Scrn Not Detected (NotDetected) Ur Amphetamines Screen Not Detected (NotDetected) U Methamphetamines Scrn Detected H (NotDetected) U Benzodiazepines Scrn Not Detected (NotDetected) Urine Cocaine Screen Not Detected (NotDetected) U Marijuana (THC) Screen Detected H (NotDetected) Serum Alcohol 394 mg/dL Disposition Clinical Impression: Depression, Homicidal ideation, Alcohol intoxication, Alcohol abuse Disposition: ADMITTED IP TO THIS HOSP Condition: Stable Referrals: Patricia Alvarez MD [Primary Care Provider] - 1-2 days Decision Time: 14:00
[2017-03-30 12:43] LABS: ALT 62 U/L (9-52); AST 151 U/L (14-36); Alkaline Phosphatase 257 U/L (38-126); Amylase 89 U/L (30-110); Anion Gap 24 mmol/L; Blood Urea Nitrogen 16 mg/dL (7-17); Calcium 9.4 mg/dL (8.4-10.2); Carbon Dioxide 23 mmol/L (22-30); Chloride 88 mmol/L (98-107); Glucose 87 mg/dL (74-99); Magnesium 1.4 mg/dL (1.6-2.3); Non-African American GFR(MDRD) 53 (>60 ml/min/1.73 sqM); Potassium 3.7 mmol/L (3.5-5.1); Sodium 135 mmol/L (137-145); Total Bilirubin 1.5 mg/dL (0.2-1.3)
[2017-03-30 12:53] LABS: Basophils # (A) 0.1 k/uL (0-0.2); Basophils % (A) 0 %; CH 35.9; CHCM 34.8; Eosinophils % (A) 0 %; HCT 43.9 % (34.0-46.0); HDW 2.09; HGB 15.5 gm/dL (11.4-16.0); Luc # (Auto) 0.25; Luc % (Auto) 2; Lymphocytes # (A) 1.5 k/uL (1.0-4.8); Lymphocytes % (A) 10 %; MCH 36.6 pg (25.0-35.0); MCHC 35.2 g/dL (31.0-37.0); MCV 103.8 fL (80.0-100.0); Macrocytosis Slight; Mean Platelet Volume 7.2; Monocytes # (A) 0.6 k/uL (0-1.0); Monocytes % (A) 4 %; Neutrophils # (A) 12.2 k/uL (1.3-7.7); Neutrophils % (A) 84 %; RBC 4.23 m/uL (3.80-5.40); RDW 13.8 % (11.5-15.5); WBC 14.7 k/uL (3.8-10.6); WBC (Perox) 14.05
[2017-03-30 13:08] LABS: Alcohol 394 mg/dL
[2017-03-30] MEDS ORDERED: NALOXONE 0.4 MG/ML 1 ML VIAL IV PRN (15:11)
[2017-03-30] MEDS ORDERED: LORazepam 2 MG/ML SYRINGE IV PRN ×3 (15:14)
[2017-03-30] MEDS ORDERED: THIAMINE 100 MG/ML 2 ML VIAL IM STA (15:14)
[2017-03-30] MEDS ORDERED: ONDANSETRON 4 MG/2 ML VIAL IVP PRN (17:37)
[2017-03-30] MEDS: LORazepam 2 MG/ML SYRINGE IV SCH (17:43)
[2017-03-30] MEDS: LIPASE 5,000/PROTEASE 17,000/AMYLASE 27,0000 PO SCH (17:45)
[2017-03-30] MEDS: THIAMINE 100 MG TAB PO SCH (18:30)
[2017-03-30] MEDS: IPRATROPIUM-ALBUTEROL 3 ML NEB INHALATION SCH (22:12)
[2017-03-30] MEDS: SODIUM CHLORIDE 0.9% 1,000 ML IV SCH (22:32)
[2017-03-30] MEDS: SPIRONOLACTONE 25 MG TAB PO SCH (22:34)
[2017-03-31] MEDS: IPRATROPIUM-ALBUTEROL 3 ML NEB INHALATION SCH (01:45)
[2017-03-31] MEDS ORDERED: ALBUTEROL NEBULIZED 2.5 MG/3 ML INHALATION PRN (02:07)
[2017-03-31] MEDS: LORazepam 2 MG/ML SYRINGE IV SCH ×3 (07:39→19:14)
[2017-03-31] MEDS ORDERED: TIOTROPIUM 18 MCG/PUFF INHALER INHALATION SCH (08:00)
[2017-03-31] MEDS: LEVOTHYROXINE 112 MCG TAB PO SCH (08:28)
[2017-03-31] MEDS: LIPASE 5,000/PROTEASE 17,000/AMYLASE 27,0000 PO SCH ×3 (08:28→17:42)
[2017-03-31] MEDS: PANTOPRAZOLE 40 MG TABLET PO SCH (08:29)
[2017-03-31] MEDS: FUROSEMIDE 40 MG TAB PO SCH (08:29)
[2017-03-31] MEDS: SPIRONOLACTONE 25 MG TAB PO SCH ×2 (08:30→20:05)
[2017-03-31] MEDS: NICOTINE 21MG/24HR PATCH TRANSDERM SCH (08:30)
[2017-03-31] MEDS: THIAMINE 100 MG TAB PO SCH ×2 (11:45→17:42)
[2017-03-31] MEDS ORDERED: MAG HYDROX/AL HYDROX/SIMETH 30 ML CUP PO PRN (13:41)
[2017-03-31] MEDS ORDERED: MAGNESIUM HYDROXIDE 2,400 MG/10 ML CUP PO PRN (13:41)
[2017-03-31] MEDS ORDERED: LORazepam 1 MG TAB PO PRN (13:41)
[2017-03-31] MEDS ORDERED: HYDROcodone/APAP 5-325MG 1 EACH TAB PO PRN (13:47)
[2017-03-31] MEDS: ALBUTEROL INHALER 60 PUFF/8 GM INHALER INHALATION PRN (14:17)
[2017-03-31] MEDS: LORazepam 1 MG TAB PO PRN ×3 (15:19→20:07)
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
[2017-03-31 17:52] LABS: Amorphous Sediment,Urine Rare /hpf; Appearance,Urine Cloudy (Clear); Bilirubin,Urine Negative (Negative); Glucose,Urine (UA) Negative (Negative); Ketones,Urine Negative (Negative); Leukocyte Esterase,Urine Negative (Negative); Mucus,Urine Rare /hpf; Nitrite,Urine Negative (Negative); Particle Count 6462; Protein,Urine Negative (Negative); RBC,Urine 3 /hpf (0-5); Specific Gravity,Urine 1.006 (1.001-1.035); Squamous Epithelial Cell,Urine 6 /hpf (0-4); UA Billing (MACRO vs. MICRO) MICRO; WBC,Urine 4 /hpf (0-5)
--- NOTE | 2017-03-31 17:55 | P.HPIM ---
History of Present Illness H&P Date: 03/30/17 Chief Complaint: Suicidal ideation This is a 46-year-old female history of chronic alcoholism and alcoholic pancreatitis alcohol liver disease who is brought in by police and EMS for evaluation for suicidal thoughts and ideation. She currently drank a gallon of whiskey throughout the night into this morning. She apparently voiced thoughts of hurting herself. A petition was filed by her sister. The patient is somewhat cooperative. She did apparently fall and sustained an abrasion to the right knee her last tetanus shot was the last time she was here she states. No complaints of head neck or back pain. No nausea vomiting or other symptoms No recent illnesses. Currently patient is drowsy and his intoxication and could not provide complete history. Patient is requesting pain medications. Review of Systems Constitutional: Patient denies any fever or chills . No generalized weakness or weight loss. Abdomen: Patient denied nausea vomiting and diarrhea and abdominal pain. Cardiovascular: Patient denies any chest pain or short of breath no palpitations. Respiratory: patient denied any cough is from production. No shortness of breath Neurologic: Patient denied any numbness or tingling headache. Musculoskeletal: Patient denies any complaints of joint swelling or deformity. Skin: Negative Psychiatric: Negative Endocrine: No heat or cold intolerance. No recent weight gain. Genitourinary: No dysuria or hematuria. All other 14 point ROS negative except the above Past Medical History Past Medical History: COPD, GERD/Reflux, Hypertension, Thyroid Disorder Additional Past Medical History / Comment(s): FATTY LIVER MASS, PANCREATITIS, OCCASIONAL DIARRHEA, STATES RUNNY NOSE-NOT SURE IF IT IS ALLERGIES-DENIES ILLNESS. hep c, etoh absuse History of Any Multi-Drug Resistant Organisms: None Reported Past Surgical History: Tubal Ligation, Uterine Ablation Additional Past Surgical History / Comment(s): TUBAL WITH TUBE REMOVED . Past Anesthesia/Blood Transfusion Reactions: No Reported Reaction Past Psychological History: Anxiety Smoking Status: Current every day smoker Past Alcohol Use History: Daily, Heavy Past Drug Use History: Marijuana - Past Family History Mother Family Medical History: No Reported History Additional Family Medical History / Comment(s): Hep C Medications and Allergies Home Medications Medication Instructions Recorded Confirmed Type Omeprazole [PriLOSEC] 20 mg PO DAILY 07/17/15 03/30/17 History Albuterol Inhaler [Ventolin Hfa 2 puff INHALATION RT-Q6H PRN 03/15/17 08/14/17 History Inhaler] Budesonide-Formot 160-4.5 Mcg 2 puff INHALATION RT-BID 10/29/16 03/30/17 History [Symbicort 160-4.5 Mcg Inhaler] Tiotropium 18 Mcg/Puff [Spiriva] 1 cap INHALATION RT-DAILY 10/29/16 03/30/17 History Levothyroxine Sodium [Synthroid] 112 mcg PO DAILY 03/30/17 03/30/17 History Spironolactone [Aldactone] 50 mg PO BID 03/30/17 03/30/17 History Allergies Allergy/AdvReac Type Severity Reaction Status Date / Time No Known Allergies Allergy Verified 03/30/17 13:39 Physical Exam Vitals: Vital Signs Temp Pulse Resp BP Pulse Ox 03/30/17 19:43 100 16 127/72 96 03/30/17 12:21 124 H 03/30/17 12:10 120 H 03/30/17 12:06 98.0 F 124 H 20 135/93 95 Intake and Output 03/30/17 03/30/17 03/30/17 06:59 14:59 22:59 Other: Weight 45.359 kg Patient Weight 03/31/17 06:59 Weight 45.359 kg PHYSICAL EXAMINATION: Patient is lying in the bed comfortably, no acute distress, awake alert and oriented.. Patient is anxious HEENT: Normocephalic. Neck is supple. Pupils reactive. Nostrils clear. Oral cavity is moist. Ears reveal no drainage. Neck reveals no JVD, carotid bruits, or thyromegaly. CHEST EXAMINATION: Trachea is central. Symmetrical expansion. Lung hurtado clear to auscultation and percussion. CARDIAC: Normal S1, S2 with no gallops. No murmurs ABDOMEN: Soft. Bowel sounds normal. No organomegaly. No abdominal bruits. Extremities: reveal no edema. No clubbing or cyanosis Neurologically awake, alert, oriented x3 with well-coordinated movements. No focal deficits noted Skin: No rash or skin lesions. Superficial abrasion seen to the right knee. Psychiatric: [id number]. Nonsuicidal Musculoskeletal: No joint swelling or deformity. Normal range of motion. Results CBC & Chem 7: 03/30/17 12:15 03/30/17 12:15 Labs: Abnormal Lab Results - Last 24 Hours (Table) 03/30/17 03/30/17 03/30/17 Range/Units 12:15 12:15 13:15 WBC 14.7 H (3.8-10.6) k/uL MCV 103.8 H (80.0-100.0) fL MCH 36.6 H (25.0-35.0) pg Neutrophils # 12.2 H (1.3-7.7) k/uL Sodium 135 L (137-145) mmol/L Chloride 88 L (98-107) mmol/L Creatinine 1.12 H (0.52-1.04) mg/dL Magnesium 1.4 L (1.6-2.3) mg/dL Total Bilirubin 1.5 H (0.2-1.3) mg/dL AST 151 H (14-36) U/L ALT 62 H (9-52) U/L Alkaline Phosphatase 257 H (38-126) U/L Urine Opiates Screen Detected H (NotDetected) U Methamphetamines Scrn Detected H (NotDetected) U Marijuana (THC) Screen Detected H (NotDetected) Thrombosis Risk Factor Assmnt - DVT/VTE Prophylaxis DVT/VTE Prophylaxis: Pharmacologic Prophylaxis ordered Assessment and Plan Plan: #1 acute Alcohol intoxication #2 suicidal ideation and was petitioned by her sister #3 alcohol abuse #4 polysubstance abuse including marijuana opiates and methamphetamines #5 COPD not in exacerbation Hypertension Hypothyroidism GERD Macrocytosis secondary to alcohol abuse Hypomagnesemia Elevated liver enzymes secondary to alcoholic hepatitis. Patient will be continued on IV hydration and Ativan for alcohol withdrawal symptoms and monitor closely for alcohol withdrawal symptoms will repeat labs in the morning tomorrow and follow closely further recommendations based on the clinical course. Time with Patient: Greater than 30
[2017-03-31] MEDS: SODIUM CHLORIDE 0.9% 1,000 ML IV SCH (19:03)
[2017-03-31] MEDS: SYMBICORT 160-4.5 MCG INHALER INHALATION SCH ×2 (19:35→19:41)
[2017-04-01] MEDS: LEVOTHYROXINE 112 MCG TAB PO SCH (06:02)
[2017-04-01] MEDS: LORazepam 1 MG TAB PO PRN ×4 (08:24→21:14)
[2017-04-01] MEDS: PANTOPRAZOLE 40 MG TABLET PO SCH (08:24)
[2017-04-01] MEDS: ACETAMINOPHEN TAB 325 MG TAB PO PRN (08:24)
[2017-04-01] MEDS: NICOTINE 21MG/24HR PATCH TRANSDERM SCH (08:25)
[2017-04-01] MEDS: SPIRONOLACTONE 25 MG TAB PO SCH ×2 (08:25→21:13)
[2017-04-01] MEDS: FUROSEMIDE 40 MG TAB PO SCH (08:25)
[2017-04-01] MEDS ORDERED: NICOTINE 21MG/24HR PATCH TRANSDERM SCH (09:00)
[2017-04-01] MEDS ORDERED: THIAMINE 100 MG TAB PO SCH (09:00)
[2017-04-01] MEDS: SYMBICORT 160-4.5 MCG INHALER INHALATION SCH ×3 (09:00→21:08)
[2017-04-01] MEDS: LIPASE 5,000/PROTEASE 17,000/AMYLASE 27,0000 PO SCH ×3 (09:16→18:02)
[2017-04-01] MEDS: ALBUTEROL INHALER 60 PUFF/8 GM INHALER INHALATION PRN ×3 (09:36→21:08)
[2017-04-01 10:09] LABS: Basophils % (A) 0 %; CH 35.4; CHCM 32.3; Eosinophils # (A) 0.1 k/uL (0-0.7); Eosinophils % (A) 2 %; HCT 39.3 % (34.0-46.0); HDW 2.17; Luc # (Auto) 0.18; Luc % (Auto) 3; Lymphocytes # (A) 1.5 k/uL (1.0-4.8); Lymphocytes % (A) 23 %; MCH 36.2 pg (25.0-35.0); Macrocytosis Marked; Mean Platelet Volume 7.6; Monocytes # (A) 0.2 k/uL (0-1.0); Monocytes % (A) 4 %; Neutrophils # (A) 4.5 k/uL (1.3-7.7); Neutrophils % (A) 69 %; RBC 3.58 m/uL (3.80-5.40); RDW 13.8 % (11.5-15.5); WBC 6.5 k/uL (3.8-10.6); WBC (Perox) 6.95
[2017-04-01 10:10] LABS: MCV 109.9 fL (80.0-100.0)
[2017-04-01 10:15] LABS: ALT 73 U/L (9-52); AST 236 U/L (14-36); Alkaline Phosphatase 228 U/L (38-126); Anion Gap 9 mmol/L; Blood Urea Nitrogen 7 mg/dL (7-17); Carbon Dioxide 28 mmol/L (22-30); Chloride 98 mmol/L (98-107); Glucose 101 mg/dL (74-99); Non-African American GFR(MDRD) >60 (>60 ml/min/1.73 sqM); Potassium 3.2 mmol/L (3.5-5.1); Sodium 135 mmol/L (137-145); Total Bilirubin 1.8 mg/dL (0.2-1.3); Total Protein 6.2 g/dL (6.3-8.2)
--- NOTE | 2017-04-01 11:58 | P.PN ---
Progress Note - Text Interval History: Patient is a 46-year-old female who is admitted for suicidal ideation and alcohol intoxication. Patient was seen today and she continues to report feeling shaky, nauseated when she is eating and not feeling right. Patient states she is no longer suicidal, but reported that she is not going to groups because she doesn't feel comfortable around people, feeling anxious when in groups. Patient states that she spoke to her partner for a brief moment and states that she feels comfortable returning there upon discharge. Patient reported feeling depressed, was tearful during most of the interview. Patient also reported having back pain. Mental Status: Appearance/Attitude: Patient is dressed in a hospital gown and appears tremulous, made good eye contact and was cooperative. Behavior: Patient did not exhibit any psychomotor retardation but reported feeling very shaky and was noticed to be tremulous. Speech/Language: Patient's speech was spontaneous and of normal volume and rhythm and she was coherent. Thought Process: Patient was goal-directed and she was not circumstantial or tangential no loose associations or flight of ideas was elicited. Thought Content: Patient denies any auditory or visual hallucinations and no delusions or paranoid ideation were elicited. Patient reports she just doesn't feel right, reported feeling nauseated after she was eating this morning. She reports that she is feeling depressed, is still hopeful that her relationship with her partner will continue. Patient states that she is avoiding groups because she doesn't like to be around people, she feels more anxious. Suicidal/Homicidal Ideation: Patient is not reporting any suicidal or homicidal ideation at this time. Sensorium/Cognition: Patient is alert and oriented to person, place, and time and her memory is grossly intact. Mood/Affect: Patient's mood is depressed and she was tearful and crying throughout most of the interview and her affect is appropriate. Insight/Judgement: Patient's insight and judgment are impaired. Assessment: Patient continues to be observed for alcohol withdrawal and treated with Ativan as needed. Patient reports she is feeling nauseated after eating, remains shaky and tremulous and reports feeling cold all the time. Patient was tearful and crying throughout most of the interview reports feeling depressed but no current suicidal ideation. Patient is hoping to return to her partner's home after discharge and before going to [facility] on April 09. Laboratory Last Values WBC 6.5 k/uL (3.8-10.6) 04/01/17 09:31 RBC 3.58 m/uL (3.80-5.40) L 04/01/17 09:31 Hgb 13.0 gm/dL (11.4-16.0) 04/01/17 09:31 Hct 39.3 % (34.0-46.0) 04/01/17 09:31 MCV 109.9 fL (80.0-100.0) H D 04/01/17 09:31 MCH 36.2 pg (25.0-35.0) H 04/01/17 09:31 MCHC 33.0 g/dL (31.0-37.0) 04/01/17 09:31 RDW 13.8 % (11.5-15.5) 04/01/17 09:31 Plt Count 159 k/uL (150-450) D 04/01/17 09:31 Neutrophils % 69 % 04/01/17 09:31 Lymphocytes % 23 % 04/01/17 09:31 Monocytes % 4 % 04/01/17 09:31 Eosinophils % 2 % 04/01/17 09:31 Basophils % 0 % 04/01/17 09:31 Neutrophils # 4.5 k/uL (1.3-7.7) 04/01/17 09:31 Lymphocytes # 1.5 k/uL (1.0-4.8) 04/01/17 09:31 Monocytes # 0.2 k/uL (0-1.0) 04/01/17 09:31 Eosinophils # 0.1 k/uL (0-0.7) 04/01/17 09:31 Basophils # 0.0 k/uL (0-0.2) 04/01/17 09:31 Macrocytosis Marked 04/01/17 09:31 Sodium 135 mmol/L (137-145) L 04/01/17 09:31 Potassium 3.2 mmol/L (3.5-5.1) L 04/01/17 09:31 Chloride 98 mmol/L (98-107) 04/01/17 09:31 Carbon Dioxide 28 mmol/L (22-30) 04/01/17 09:31 Anion Gap 9 mmol/L 04/01/17 09:31 BUN 7 mg/dL (7-17) 04/01/17 09:31 Creatinine 0.71 mg/dL (0.52-1.04) 04/01/17 09:31 Est GFR (MDRD) Af Amer >60 (>60 ml/min/1.73 sqM) 04/01/17 09:31 Est GFR (MDRD) Non-Af >60 (>60 ml/min/1.73 sqM) 04/01/17 09:31 Glucose 101 mg/dL (74-99) H 04/01/17 09:31 Calcium 9.0 mg/dL (8.4-10.2) 04/01/17 09:31 Magnesium 1.4 mg/dL (1.6-2.3) L 03/30/17 12:15 Total Bilirubin 1.8 mg/dL (0.2-1.3) H 04/01/17 09:31 AST 236 U/L (14-36) H 04/01/17 09:31 ALT 73 U/L (9-52) H 04/01/17 09:31 Alkaline Phosphatase 228 U/L (38-126) H 04/01/17 09:31 Total Protein 6.2 g/dL (6.3-8.2) L 04/01/17 09:31 Albumin 3.6 g/dL (3.5-5.0) 04/01/17 09:31 Amylase 89 U/L (30-110) 03/30/17 12:15 Lipase 76 U/L (23-300) 03/30/17 12:15 TSH 20.500 mIU/L (0.465-4.680) H 04/01/17 09:31 Urine Color Yellow 03/31/17 17:20 Urine Appearance Cloudy (Clear) H 03/31/17 17:20 Urine pH 7.0 (5.0-8.0) 03/31/17 17:20 Ur Specific Colon 1.006 (1.001-1.035) 03/31/17 17:20 Urine Protein Negative (Negative) 03/31/17 17:20 Urine Glucose (UA) Negative (Negative) 03/31/17 17:20 Urine Ketones Negative (Negative) 03/31/17 17:20 Urine Blood Negative (Negative) 03/31/17 17:20 Urine Nitrite Negative (Negative) 03/31/17 17:20 Urine Bilirubin Negative (Negative) 03/31/17 17:20 Urine Urobilinogen 2.0 mg/dL (<2.0) 03/31/17 17:20 Ur Leukocyte Esterase Negative (Negative) 03/31/17 17:20 Urine RBC 3 /hpf (0-5) 03/31/17 17:20 Urine WBC 4 /hpf (0-5) 03/31/17 17:20 Ur Squamous Epith Cells 6 /hpf (0-4) H 03/31/17 17:20 Amorphous Sediment Rare /hpf (None) H 03/31/17 17:20 Urine Mucus Rare /hpf (None) H 03/31/17 17:20 Urine HCG, Qual Not Detected (Not Detectd) 03/31/17 17:20 Urine Opiates Screen Detected (NotDetected) H 03/30/17 13:15 Ur Oxycodone Screen Not Detected (NotDetected) 03/30/17 13:15 Urine Methadone Screen Not Detected (NotDetected) 03/30/17 13:15 Ur Propoxyphene Screen Not Detected (NotDetected) 03/30/17 13:15 Ur Barbiturates Screen Not Detected (NotDetected) 03/30/17 13:15 U Tricyclic Antidepress Not Detected (NotDetected) 03/30/17 13:15 Ur Phencyclidine Scrn Not Detected (NotDetected) 03/30/17 13:15 Ur Amphetamines Screen Not Detected (NotDetected) 03/30/17 13:15 U Methamphetamines Scrn Detected (NotDetected) H 03/30/17 13:15 U Benzodiazepines Scrn Not Detected (NotDetected) 03/30/17 13:15 Urine Cocaine Screen Not Detected (NotDetected) 03/30/17 13:15 U Marijuana (THC) Screen Detected (NotDetected) H 03/30/17 13:15 Serum Alcohol 394 mg/dL 03/30/17 12:15 Patient's labs on repeat show continued elevated liver enzymes, her creatinine level is return to normal, her bilirubin is elevated and the patient's TSH is over 20. Plan: Patient and I discussed the use and side effects of Lexapro to treat her depression and anxiety and she will begin 10 mg a day. Patient will continue on an alcohol withdrawal with Ativan as needed. Patient is reporting back pain due to her elevated TSH level will consult medicine to evaluate. Patient continues to require hospitalization due to her alcohol withdrawal and to stabilize her mood.
[2017-04-01] MEDS: MULTIVITAMINS, THERA 1 EACH TAB PO SCH (13:02)
[2017-04-01] MEDS: THIAMINE 100 MG TAB PO SCH ×2 (13:02→16:55)
[2017-04-01] MEDS: FOLIC ACID 1 MG TAB PO SCH (13:02)
[2017-04-01] MEDS: ESCITALOPRAM 10 MG TAB PO SCH (13:03)
--- NOTE | 2017-04-01 14:01 | P.CONS ---
History of Present Illness - Reason for Consult Consult date: 04/01/17 Management of all color but that all symptoms and hypothyroidism - Chief Complaint Acute ETOH intoxication and suicidal ideation - History of Present Illness This is a 46-year-old female history of chronic alcoholism and alcoholic pancreatitis alcohol liver disease who is brought in by police and EMS for evaluation for suicidal thoughts and ideation. She drank a gallon of whiskey throughout the night. She apparently voiced thoughts of hurting herself. A petition was filed by her sister. The patient is somewhat cooperative. She did apparently fall and sustained an abrasion to the right knee her last tetanus shot was the last time she was here she states. No complaints of head neck or back pain. No nausea vomiting or other symptoms. Patient is currently more awake and oriented. And is being monitored for WITHDRAWAL symptoms. Her TSH level is elevated at 20. Patient is on polyp with her physician and recently dose has been increased to 112 g daily. Patient is also found helpful thyroid nodule and is planning for surgery as an outpatient. Patient says that she has been taking her medications regularly and recent recent doses. Review of Systems Constitutional: Patient denies any fever or chills . No generalized weakness or weight loss. Abdomen: Patient denied nausea vomiting and diarrhea and abdominal pain. Cardiovascular: Patient denies any chest pain or short of breath no palpitations. Respiratory: patient denied any cough is from production. No shortness of breath Neurologic: Patient denied any numbness or tingling headache. Musculoskeletal: Patient denies any complaints of joint swelling or deformity. Skin: Patient does have left wrist skin wound. Psychiatric: Anxious. No suicidal ideation Endocrine: No heat or cold intolerance. No recent weight gain. Genitourinary: No dysuria or hematuria. All other 14 point ROS negative except the above Past Medical History Past Medical History: COPD, GERD/Reflux, Hypertension, Thyroid Disorder Additional Past Medical History / Comment(s): FATTY LIVER MASS, PANCREATITIS, OCCASIONAL DIARRHEA, STATES RUNNY NOSE-NOT SURE IF IT IS ALLERGIES-DENIES ILLNESS. hep c, etoh absuse History of Any Multi-Drug Resistant Organisms: None Reported Past Surgical History: Tubal Ligation, Uterine Ablation Additional Past Surgical History / Comment(s): TUBAL WITH TUBE REMOVED . Past Anesthesia/Blood Transfusion Reactions: No Reported Reaction Past Psychological History: Anxiety Smoking Status: Current every day smoker Past Alcohol Use History: Daily, Heavy Past Drug Use History: Marijuana - Past Family History Mother Family Medical History: No Reported History Additional Family Medical History / Comment(s): Hep C Medications and Allergies Home Medications Medication Instructions Recorded Confirmed Type Omeprazole [PriLOSEC] 20 mg PO DAILY 07/17/15 03/30/17 History Albuterol Inhaler [Ventolin Hfa 2 puff INHALATION RT-Q6H PRN 10/29/16 03/30/17 History Inhaler] Budesonide-Formot 160-4.5 Mcg 2 puff INHALATION RT-BID 10/29/16 03/30/17 History [Symbicort 160-4.5 Mcg Inhaler] Tiotropium 18 Mcg/Puff [Spiriva] 1 cap INHALATION RT-DAILY 10/29/16 03/30/17 History Levothyroxine Sodium [Synthroid] 112 mcg PO DAILY 03/30/17 03/30/17 History Spironolactone [Aldactone] 50 mg PO BID 03/30/17 03/30/17 History Allergies Allergy/AdvReac Type Severity Reaction Status Date / Time No Known Allergies Allergy Verified 03/30/17 13:39 Physical Exam Vitals: Vital Signs Temp Pulse Pulse Resp BP BP 04/01/17 12:12 97 16 109/76 04/01/17 08:33 132 H 16 144/96 04/01/17 06:31 97.9 F 91 18 123/80 03/31/17 20:08 118 H 16 122/88 03/31/17 17:47 131 H 16 134/87 03/31/17 15:17 133 H 18 117/88 Patient is lying in the bed comfortably, no acute distress, awake alert and oriented.. Patient is anxious HEENT: Normocephalic. Neck is supple. Pupils reactive. Nostrils clear. Oral cavity is moist. Ears reveal no drainage. Neck reveals no JVD, carotid bruits, or thyromegaly. CHEST EXAMINATION: Trachea is central. Symmetrical expansion. Lung hurtado clear to auscultation and percussion. CARDIAC: Normal S1, S2 with no gallops. No murmurs ABDOMEN: Soft. Bowel sounds normal. No organomegaly. No abdominal bruits. Extremities: reveal no edema. No clubbing or cyanosis Neurologically awake, alert, oriented x3 with well-coordinated movements. No focal deficits noted Skin: No rash or skin lesions. Superficial abrasion seen to the right knee. Psychiatric: [id number]. Nonsuicidal Musculoskeletal: No joint swelling or deformity. Normal range of motion. Results CBC & Chem 7: 04/01/17 09:31 04/01/17 09:31 Labs: Abnormal Lab Results - Last 24 Hours (Table) 03/31/17 04/01/17 04/01/17 Range/Units 17:20 09:31 09:31 RBC 3.58 L (3.80-5.40) m/uL MCV 109.9 H D (80.0-100.0) fL MCH 36.2 H (25.0-35.0) pg Sodium 135 L (137-145) mmol/L Potassium 3.2 L (3.5-5.1) mmol/L Glucose 101 H (74-99) mg/dL Total Bilirubin 1.8 H (0.2-1.3) mg/dL AST 236 H (14-36) U/L ALT 73 H (9-52) U/L Alkaline Phosphatase 228 H (38-126) U/L Total Protein 6.2 L (6.3-8.2) g/dL TSH 20.500 H (0.465-4.680) mIU/L Urine Appearance Cloudy H (Clear) Ur Squamous Epith Cells 6 H (0-4) /hpf Amorphous Sediment Rare H (None) /hpf Urine Mucus Rare H (None) /hpf Assessment and Plan Plan: #1 acute Alcohol intoxication on admission. Monitor for withdrawal symptoms #2 suicidal ideation and was petitioned by her sister #3 alcohol abuse. 1 gallon whiskey daily #4 polysubstance abuse including marijuana opiates and methamphetamines #5 COPD not in exacerbation #6 Hypertension. Controlled #7 Hypothyroidism. Elevated TSH level at 20. Started back on her Synthroid dose is which was recently increased. Patient does have a thyroid nodule.. On follow with endocrinology schedule for next month as per patient #8 GERD #9 Macrocytosis secondary to alcohol abuse #10 Hypomagnesemia #11 Elevated liver enzymes secondary to alcoholic hepatitis. Patient will be continued on Ativan for alcohol withdrawal symptoms and monitor closely . She was started back on her dose of Synthroid 112 micrograms daily. Continue with your psychiatric elevation and management. We will continue with the home blood pressure medications and replace potassium. Further recommendations based on the clinical course. Patient has follow-up information with endocrinology next month for repeat TSH and free T4 level. Patient was also found to have recently with a thyroid nodule and is planning for resection as per the patient. Time with Patient: Greater than 30
[2017-04-01] MEDS ORDERED: POTASSIUM CHLORIDE ER 20 MEQ TAB.ER PO STA (20:49)
[2017-04-01] MEDS: MAGNESIUM OXIDE 400 MG TAB PO SCH (22:39)
[2017-04-02] MEDS: LEVOTHYROXINE 112 MCG TAB PO SCH (05:33)
[2017-04-02] MEDS: LORazepam 1 MG TAB PO PRN ×4 (05:42→17:30)
[2017-04-02] MEDS: ALBUTEROL INHALER 60 PUFF/8 GM INHALER INHALATION PRN ×4 (05:51→21:28)
[2017-04-02] MEDS: SYMBICORT 160-4.5 MCG INHALER INHALATION SCH ×2 (05:53→21:29)
[2017-04-02] MEDS: ESCITALOPRAM 10 MG TAB PO SCH (08:41)
[2017-04-02] MEDS: NICOTINE 21MG/24HR PATCH TRANSDERM SCH (08:41)
[2017-04-02] MEDS: MAGNESIUM OXIDE 400 MG TAB PO SCH ×2 (08:42→21:36)
[2017-04-02] MEDS: LIPASE 5,000/PROTEASE 17,000/AMYLASE 27,0000 PO SCH ×3 (08:42→17:30)
[2017-04-02] MEDS: PANTOPRAZOLE 40 MG TABLET PO SCH (08:42)
[2017-04-02] MEDS: SPIRONOLACTONE 25 MG TAB PO SCH ×2 (08:42→21:36)
[2017-04-02] MEDS: FUROSEMIDE 40 MG TAB PO SCH (08:42)
--- NOTE | 2017-04-02 11:29 | P.PN ---
Progress Note - Text Interval history: The patient is found in group she follows me to an interview room. The psychiatric evaluation and subsequent progress note were reviewed. The patient was admitted from the emergency room for making suicidal and homicidal statements. She had presented acutely intoxicated from alcohol. The patient has a long history of excessively using alcohol on a daily basis. There was knowledge that she had at least one firearm in the home. The patient states that it is common for her to threaten her own safety or her boyfriend safety and lacks insight into making the statements. She is scheduled to attend inpatient chemical dependency treatment on the but has no plan for remaining sober until that date. We are monitoring for symptoms of alcohol withdrawal. Mental status exam: The patient is a female she has a disheveled appearance dressed in hospital gowns. Eye contact is appropriate. She is cooperative. She is reporting no acute suicidal or homicidal thoughts as she is trying to facilitate a discharge from the hospital. She is endorsing no auditory or visual hallucinations or specific delusions. There appears to be no current evidence of psychosis. She does not appear hypomanic or manic. Insight and judgment are limited. With outstretched arm she demonstrates a fine amplitude tremor. Affect is constricted. She demonstrates no verbal or physical aggressiveness. Thought process is fairly linear she demonstrates tangential thinking loose associations or flight of ideas. Plan: The patient will continue on the Lexapro that was started for depressive symptoms while here. We are monitoring for alcohol withdrawal she is receiving Ativan as needed. Social work is attempting to arrange a support meeting involving her boyfriend. We will monitor for safety.
[2017-04-02] MEDS: FOLIC ACID 1 MG TAB PO SCH (12:34)
[2017-04-02] MEDS: THIAMINE 100 MG TAB PO SCH ×2 (12:36→17:29)
[2017-04-02] MEDS: MULTIVITAMINS, THERA 1 EACH TAB PO SCH (12:36)
[2017-04-02 15:01] VITALS: BMI 17.2
[2017-04-02] MEDS: ACETAMINOPHEN TAB 325 MG TAB PO PRN (17:29)
[2017-04-03] MEDS: LEVOTHYROXINE 112 MCG TAB PO SCH (06:16)
[2017-04-03] MEDS: LORazepam 1 MG TAB PO PRN (06:56)
[2017-04-03 07:03] VITALS: BP 150/100; PULSE 108; RESP 18; TEMP 98.2
[2017-04-03] MEDS: SYMBICORT 160-4.5 MCG INHALER INHALATION SCH (08:13)
[2017-04-03] MEDS: ALBUTEROL INHALER 60 PUFF/8 GM INHALER INHALATION PRN ×2 (08:13→12:51)
[2017-04-03] MEDS: LIPASE 5,000/PROTEASE 17,000/AMYLASE 27,0000 PO SCH ×2 (08:28→12:36)
[2017-04-03] MEDS: SPIRONOLACTONE 25 MG TAB PO SCH (08:29)
[2017-04-03] MEDS: NICOTINE 21MG/24HR PATCH TRANSDERM SCH (08:29)
[2017-04-03] MEDS: MAGNESIUM OXIDE 400 MG TAB PO SCH (08:29)
[2017-04-03] MEDS: ESCITALOPRAM 10 MG TAB PO SCH (08:29)
[2017-04-03] MEDS: PANTOPRAZOLE 40 MG TABLET PO SCH (08:29)
[2017-04-03] MEDS: FUROSEMIDE 40 MG TAB PO SCH (08:29)
--- NOTE | 2017-04-03 10:29 | P.DS ---
Providers Date of admission: 03/30/17 15:12 Expected date of discharge: 04/03/17 Attending physician: Jordon Bo Consults: 03/30/17 15:13 Consult Physician Routine Consulting Provider: Jordon Bo Consult Reason/Comments: Depression and homicidal ideation Do you want consulting provider notified?: Yes, Notify in am 03/31/17 13:41 Consult Physician Routine Consulting Provider: Austen Weston Consult Reason/Comments: follow up H & P Do you want consulting provider notified?: Yes Primary care physician: Patricia Alvarez - Discharge Diagnosis(es) (1) Depression Current Visit: Yes Status: Acute Priority: High (2) Generalized anxiety disorder Current Visit: Yes Status: Acute Priority: High (3) Alcohol use disorder Current Visit: Yes Status: Acute Priority: High Hospital Course: Brief summary admission note: This patient is a 46-year-old female who was admitted to the mental health unit through the emergency room. She was petition by her sister to the hospital. She presented with a blood alcohol level of 394 area the patient admits she made statements that were suicidal and homicidal in nature while intoxicated. There was a report that there were firearms in the home. She indicated having relationship strain with her boyfriend. She was tearful. She has excessively been using alcohol for the last 20 years. She has used other substances such as methamphetamine in the past. She reported that she was excessively using alcohol to medicate symptoms of anxiety and depression. She reported that she isolates at home has difficulty riding in a car going to stores. For full details please refer to psychiatric evaluation dated 03/31/2017. Summary of hospital course: The patient was admitted to the mental health unit she did sign in voluntarily. Dr. Figueroa completed the psychiatric evaluation and placed the patient on Lexapro. The patient was placed on precautions for alcohol withdrawal Ativan was prescribed as needed. She was seen by internal medicine regarding the sequela of her alcohol use disorder. She has liver enzyme elevation hypothyroidism in the context of chronic pancreatitis. The patient minimally participated in groups. She reported a resolution of any acute suicidal ideation. She reported no homicidal ideation intent or plan. She describes symptoms of depression and anxiety that were fueling her use of alcohol. She had already been set up to start [facility] on the of this month. She remains committed to attending and she states "I'm doing it on my own". She demonstrated no agitated behavior. Social work has been able to reach her boyfriend by phone and he is scheduled to come in for a support meeting this afternoon. The patient would like to be discharged mental health unit. Mental status exam: The patient is a female she is dressed in hospital attire eye contact is appropriate speech is fluent she reports that she feels safe she denies having any acute suicidal or homicidal ideation intent or plan. She endorses no auditory or visual hallucinations or any specific delusions. There is no evidence of psychosis. She does not appear hypomanic or manic. Insight and judgment are improving. She demonstrates no tremor or other evidence of alcohol withdrawal. She demonstrates no verbal or physical aggressiveness. She is oriented to person place and date. She maintains a constricted affect. Impressions 1. Depression unspecified, rule out major depressive disorder, generalized anxiety disorder, alcohol use disorder 2. Medical comorbidities include sequela of ongoing alcohol use disorder as well as hypothyroidism Plan: The patient will be discharged mental health unit today to return home. She will continue on Lexapro 10 mg daily. She will be given a very limited supply of Ativan to complete her taper. She is instructed to abstain from any use of alcohol or illicit drugs. She plans on attending inpatient chemical dependency treatment at [facility] on 04/09/2017. The patient is capable of meeting her activities of daily living at this time. boning room worker will complete a support meeting involving her boyfriend. Documentation states that he reports there are no firearms at home at this time. The patient will follow- up with her primary care physician for ongoing management of her medical comorbidities. She is instructed to return to the hospital with any acute safety concerns. Patient Condition at Discharge: Stable Plan - Discharge Summary New Discharge Prescriptions: New Escitalopram [Lexapro] 10 mg PO DAILY #30 tab Lipase/Protease/Amylase [Zenpep Dr 5,000 Units Capsule] 2 each PO TID-W/ MEALS #60 cap LORazepam [Ativan] 1 mg PO BID #7 tab Continue Omeprazole [PriLOSEC] 20 mg PO DAILY Thiamine [Vitamin B-1] 100 mg PO DAILY #30 tablet Tiotropium 18 Mcg/Puff [Spiriva] 1 cap INHALATION RT-DAILY Budesonide-Formot 160-4.5 Mcg [Symbicort 160-4.5 Mcg Inhaler] 2 puff INHALATION RT-BID Albuterol Inhaler [Ventolin Hfa Inhaler] 2 puff INHALATION RT-Q6H PRN PRN Reason: Shortness Of Breath Or Wheezing Furosemide [Lasix] 40 mg PO DAILY #30 tab Folic Acid 1 mg PO DAILY #30 tablet Multivitamins, Thera [Multivitamin (formulary)] 1 tab PO DAILY #30 tablet HYDROcodone/APAP 5-325MG [[place] 5-325] 1 tab PO Q6HR PRN #20 tab PRN Reason: Pain Levothyroxine Sodium [Synthroid] 112 mcg PO DAILY Spironolactone [Aldactone] 50 mg PO BID Nicotine 21Mg/24Hr Patch [Habitrol] 1 patch TRANSDERM DAILY #12 patch Discharge Medication List Omeprazole [PriLOSEC] 20 mg PO DAILY 07/17/15 [History] Thiamine [Vitamin B-1] 100 mg PO DAILY #30 tablet 10/18/16 [Rx] Albuterol Inhaler [Ventolin Hfa Inhaler] 2 puff INHALATION RT-Q6H PRN 10/29/16 [ History] Budesonide-Formot 160-4.5 Mcg [Symbicort 160-4.5 Mcg Inhaler] 2 puff INHALATION RT-BID 10/29/16 [History] Tiotropium 18 Mcg/Puff [Spiriva] 1 cap INHALATION RT-DAILY 10/29/16 [History] Folic Acid 1 mg PO DAILY #30 tablet 11/03/16 [Rx] Furosemide [Lasix] 40 mg PO DAILY #30 tab 11/03/16 [Rx] HYDROcodone/APAP 5-325MG [[place] 5-325] 1 tab PO Q6HR PRN #20 tab 11/03/16 [Rx] Multivitamins, Thera [Multivitamin (formulary)] 1 tab PO DAILY #30 tablet [Rx] Levothyroxine Sodium [Synthroid] 112 mcg PO DAILY 03/30/17 [History] Spironolactone [Aldactone] 50 mg PO BID 03/30/17 [History] Escitalopram [Lexapro] 10 mg PO DAILY #30 tab 04/03/17 [Rx] LORazepam [Ativan] 1 mg PO BID #7 tab 08/18/17 [Rx] Lipase/Protease/Amylase [Zenpep Dr 5,000 Units Capsule] 2 each PO TID-W/MEALS # 60 cap 04/03/17 [Rx] Nicotine 21Mg/24Hr Patch [Habitrol] 1 patch TRANSDERM DAILY #12 patch 04/03/17 [ Rx] Follow up Appointment(s)/Referral(s): Patricia Alvarez MD [Primary Care Provider] - 1-2 days
[2017-04-03] MEDS: THIAMINE 100 MG TAB PO SCH (12:36)
[2017-04-03] MEDS: FOLIC ACID 1 MG TAB PO SCH (12:36)
[2017-04-03] MEDS: MULTIVITAMINS, THERA 1 EACH TAB PO SCH (12:36)
== END 2017-04-03 15:19 | disposition home or self-care (01) | DRG 881 ==
LOC: EC 12:04 → OBSVTOIN 15:12 → 5MS5E 15:12 → 3MHU 03-31 12:40
PROVIDERS: ADMIT Psychiatry & Neurology Psychiatry; ATTEND Psychiatry & Neurology Psychiatry
DX: F32.9 Major depressive disorder, single episode, unspecified (principal); K76.0 Fatty (change of) liver, not elsewhere classified; K86.1 Other chronic pancreatitis; R45.851 Suicidal ideations; F10.239 Alcohol dependence with withdrawal, unspecified; F10.24 Alcohol dependence with alcohol-induced mood disorder; K70.10 Alcoholic hepatitis without ascites; E83.42 Hypomagnesemia; I10 Essential (primary) hypertension; E04.1 Nontoxic single thyroid nodule; E03.9 Hypothyroidism, unspecified; F12.90 Cannabis use, unspecified, uncomplicated; F17.200 Nicotine dependence, unspecified, uncomplicated; F41.0 Panic disorder [episodic paroxysmal anxiety]; R45.850 Homicidal ideations; Y90.8 Blood alcohol level of 240 mg/100 ml or more; F41.1 Generalized anxiety disorder; J44.9 Chronic obstructive pulmonary disease, unspecified; K21.9 Gastro-esophageal reflux disease without esophagitis; Z79.51 Long term (current) use of inhaled steroids; Z79.899 Other long term (current) drug therapy
CPT/HCPCS: 36415; 80053; 80306; 80320; 81001; 81025; 82150; 83690; 83735; 84443; 85025; 94640; 96365; 96366; 96375; 99285

== ENCOUNTER 2017-07-29 16:18 | Emergency (ER) | payer OTHER ==
[2017-07-29] MEDS ORDERED: ONDANSETRON 4 MG/2 ML VIAL IVP STA (16:47)
[2017-07-29] MEDS ORDERED: LORazepam 2 MG/ML INJ IV STA (16:47)
[2017-07-29] MEDS ORDERED: SODIUM CHLORIDE 0.9% 1,000 ML IV STA (16:47)
[2017-07-29] MEDS ORDERED: FAMOTIDINE 20 MG/2 ML VIAL IV STA (16:47)
[2017-07-29 17:06] LABS: Basophils # (A) 0.1 k/uL (0-0.2); Basophils % (A) 1 %; Eosinophils # (A) 0.3 k/uL (0-0.7); Eosinophils % (A) 2 %; HCT 43.7 % (34.0-46.0); HGB 13.7 gm/dL (11.4-16.0); Lymphocytes # (A) 2.8 k/uL (1.0-4.8); Lymphocytes % (A) 28 %; MCH 34.4 pg (25.0-35.0); MCHC 31.3 g/dL (31.0-37.0); MCV 109.9 fL (80.0-100.0); Macrocytosis Marked; Monocytes # (A) 0.6 k/uL (0-1.0); Monocytes % (A) 6 %; Neutrophils # (A) 6.2 k/uL (1.3-7.7); Neutrophils % (A) 61 %; Platelet Count 360 k/uL (150-450); RBC 3.98 m/uL (3.80-5.40); RDW 14.5 % (11.5-15.5); WBC 10.2 k/uL (3.8-10.6)
--- NOTE | 2017-07-29 17:11 | ED ---
General Adult HPI - General Source: patient, RN notes reviewed Mode of arrival: ambulatory Limitations: no limitations <Paulino Mendez - Last Filed: 07/29/17 19:49> <Angi Zamora - Last Filed: 09/19/17 18:11> - General Chief complaint: Abdominal Pain Stated complaint: Abd Pain Time Seen by Provider: 07/29/17 16:42 - History of Present Illness Initial comments: Patient's a 47-year-old female who presents emergency room today with a chief complaint of nausea vomiting and abdominal pain over the last 2-3 days. Patient does admit to upper abdominal pain is worried about her gallbladder has been the problem. Does admit history of pancreatitis due to history of alcoholism. Patient denies any other complaints or symptoms. Patient denies any recent fever, chills, shortness of breath, chest pain, back pain, abdominal pain, nausea or vomiting, numbness or tingling, dysuria or hematuria, constipation or diarrhea, headaches or visual changes, or any other complaints. (Paulino Mendez) - Related Data Home Medications Medication Instructions Recorded Confirmed Omeprazole [PriLOSEC] 20 mg PO DAILY 07/17/15 08/21/17 Albuterol Inhaler [Ventolin Hfa 2 puff INHALATION RT-Q6H PRN 10/29/16 08/21/17 Inhaler] Budesonide-Formot 160-4.5 Mcg 2 puff INHALATION RT-BID 10/29/16 08/21/17 [Symbicort 160-4.5 Mcg Inhaler] Tiotropium 18 Mcg/Puff [Spiriva] 1 cap INHALATION RT-DAILY 10/29/16 08/21/17 Levothyroxine Sodium [Synthroid] 112 mcg PO DAILY 03/30/17 08/21/17 Spironolactone [Aldactone] 50 mg PO BID 03/30/17 08/21/17 Previous Rx's Medication Instructions Recorded Thiamine [Vitamin B-1] 100 mg PO DAILY #30 tablet 10/18/16 Folic Acid 1 mg PO DAILY #30 tablet 11/03/16 Furosemide [Lasix] 40 mg PO DAILY #30 tab 11/03/16 HYDROcodone/APAP 5-325MG [[place] 1 tab PO Q6HR PRN #20 tab 11/03/16 5-325] Multivitamins, Thera [Multivitamin 1 tab PO DAILY #30 tablet 11/03/16 (formulary)] Nicotine 21Mg/24Hr Patch [Habitrol] 1 patch TRANSDERM DAILY #12 patch 04/03/17 LORazepam [Ativan] 1 mg PO TID PRN #30 tab 08/23/17 Levofloxacin [Levaquin] 500 mg PO DAILY #5 tab 08/23/17 Lipase/Protease/Amylase [Zenpep Dr 1 each PO AC-TID capsule. 08/23/17 5,000 Units Capsule] Allergies Allergy/AdvReac Type Severity Reaction Status Date / Time No Known Allergies Allergy Verified 08/21/17 18:22 Review of Systems ROS Other: All systems not noted in ROS Statement are negative. <Paulino Mendez - Last Filed: 07/29/17 19:49> ROS Other: All systems not noted in ROS Statement are negative. <Angi Zamora P - Last Filed: 09/19/17 18:11> ROS Statement: Those systems with pertinent positive or pertinent negative responses have been documented in the HPI. Past Medical History Past Medical History: COPD, GERD/Reflux, Hypertension, Thyroid Disorder Additional Past Medical History / Comment(s): FATTY LIVER MASS, PANCREATITIS, OCCASIONAL DIARRHEA, STATES RUNNY NOSE-NOT SURE IF IT IS ALLERGIES-DENIES ILLNESS. hep c, etoh absuse History of Any Multi-Drug Resistant Organisms: None Reported Past Surgical History: Tubal Ligation, Uterine Ablation Additional Past Surgical History / Comment(s): TUBAL WITH TUBE REMOVED . Past Anesthesia/Blood Transfusion Reactions: No Reported Reaction Past Psychological History: Anxiety Smoking Status: Current every day smoker Past Alcohol Use History: Daily, Heavy Past Drug Use History: Marijuana - Past Family History Mother Family Medical History: No Reported History Additional Family Medical History / Comment(s): Hep C <Paulino Mendez - Last Filed: 07/29/17 19:49> General Exam Limitations: no limitations <Paulino Mendez - Last Filed: 07/29/17 19:49> <Angi Zamora P - Last Filed: 09/19/17 18:11> - General Exam Comments Initial Comments: General: The patient is awake and alert, in no distress, and does not appear acutely ill. Eye: Pupils are equal, round and reactive to light, extra-ocular movements are intact. No nystagmus. There is normal conjunctiva bilaterally. No signs of icterus. Ears, nose, mouth and throat: There are moist mucous membranes and no oral lesions. Neck: The neck is supple, there is no tenderness or JVD. Cardiovascular: There is a regular rate and rhythm. No murmur, rub or gallop is appreciated. Respiratory: Lungs are clear to auscultation, respirations are non-labored, breath sounds are equal. No wheezes, stridor, rales, or rhonchi. Gastrointestinal: Normal appearance abdomen. Normal bowel sounds. Abdomen soft on palpation. Patient does have mild tenderness epigastric. No rebound tenderness. No guarding. Musculoskeletal: Normal ROM, no tenderness. Strength 5/5. Sensation intact. Pulses equal bilaterally 2+. Neurological: A&O x 3. CN II-XII intact, There are no obvious motor or sensory deficits. Coordination appears grossly intact. Speech is normal. Skin: Skin is warm and dry and no rashes or lesions are noted. Psychiatric: Cooperative, appropriate mood & affect, normal judgment. (Paulino Mendez) Course <Paulino Mendez - Last Filed: 07/29/17 19:49> <Angi Zamora - Last Filed: 09/19/17 18:11> Vital Signs 07/29/17 07/29/17 07/29/17 16:33 19:02 19:44 Temperature 98.8 F 98.7 F Pulse Rate 118 H 102 H 104 H Respiratory 22 18 16 Rate Blood Pressure 162/97 122/77 122/77 O2 Sat by Pulse 96 94 L 96 Oximetry 07/30/17 00:07 Temperature 97.6 F Pulse Rate 115 H Respiratory 18 Rate Blood Pressure 138/88 O2 Sat by Pulse 95 Oximetry - Reevaluation(s) Reevaluation #1: 07/29/17 19:40 Patient's ultrasound reviewed and is negative for any signs of acute cholecystitis at this time. Patient's abdomen soft on palpation. She currently sleeping. Patient is intoxicated. Blood alcohol is 360. Patient's labs been reviewed. No signs of infection. Vitals are stable. Case discussed and signed out to Dr. Zamora. (Paulino Mendez) Medical Decision Making - Lab Data Result diagrams: 07/29/17 16:43 07/29/17 16:43 <Paulino Mendez - Last Filed: 07/29/17 19:49> - Lab Data Result diagrams: 07/29/17 16:43 07/29/17 16:43 <NoahAngi P - Last Filed: 09/19/17 18:11> - Lab Data Lab Results 07/29/17 07/29/17 07/29/17 Range/Units 16:43 16:43 17:00 WBC 10.2 (3.8-10.6) k/uL RBC 3.98 (3.80-5.40) m/uL Hgb 13.7 (11.4-16.0) gm/dL Hct 43.7 (34.0-46.0) % MCV 109.9 H (80.0-100.0) fL MCH 34.4 (25.0-35.0) pg MCHC 31.3 (31.0-37.0) g/dL RDW 14.5 (11.5-15.5) % Plt Count 360 (150-450) k/uL Neutrophils % 61 % Lymphocytes % 28 % Monocytes % 6 % Eosinophils % 2 % Basophils % 1 % Neutrophils # 6.2 (1.3-7.7) k/uL Lymphocytes # 2.8 (1.0-4.8) k/uL Monocytes # 0.6 (0-1.0) k/uL Eosinophils # 0.3 (0-0.7) k/uL Basophils # 0.1 (0-0.2) k/uL Manual Slide Review Performed Macrocytosis Marked Sodium 145 (137-145) mmol/L Potassium 4.1 (3.5-5.1) mmol/L Chloride 108 H (98-107) mmol/L Carbon Dioxide 26 (22-30) mmol/L Anion Gap 11 mmol/L BUN 8 (7-17) mg/dL Creatinine 0.70 (0.52-1.04) mg/dL Est GFR (MDRD) Af Amer >60 (>60 ml/min/1.73 sqM) Est GFR (MDRD) Non-Af >60 (>60 ml/min/1.73 sqM) Glucose 116 H (74-99) mg/dL Calcium 9.4 (8.4-10.2) mg/dL Total Bilirubin 0.3 (0.2-1.3) mg/dL AST 69 H (14-36) U/L ALT 44 (9-52) U/L Alkaline Phosphatase 182 H (38-126) U/L Total Protein 6.9 (6.3-8.2) g/dL Albumin 3.9 (3.5-5.0) g/dL Amylase 78 (30-110) U/L Lipase 101 (23-300) U/L Urine Color Colorless Urine Appearance Cloudy H (Clear) Urine pH 5.5 (5.0-8.0) Ur Specific [place] 1.004 (1.001-1.035) Urine Protein Negative (Negative) Urine Glucose (UA) Negative (Negative) Urine Ketones Negative (Negative) Urine Blood Negative (Negative) Urine Nitrite Negative (Negative) Urine Bilirubin Negative (Negative) Urine Urobilinogen <2.0 (<2.0) mg/dL Ur Leukocyte Esterase Small H (Negative) Urine RBC 1 (0-5) /hpf Urine WBC 2 (0-5) /hpf Ur Squamous Epith Cells 10 H (0-4) /hpf Urine Bacteria Rare H (None) /hpf Urine Yeast (Budding) Rare H (None) /hpf Serum Alcohol mg/dL 07/29/17 Range/Units 18:05 WBC (3.8-10.6) k/uL RBC (3.80-5.40) m/uL Hgb (11.4-16.0) gm/dL Hct (34.0-46.0) % MCV (80.0-100.0) fL MCH (25.0-35.0) pg MCHC (31.0-37.0) g/dL RDW (11.5-15.5) % Plt Count (150-450) k/uL Neutrophils % % Lymphocytes % % Monocytes % % Eosinophils % % Basophils % % Neutrophils # (1.3-7.7) k/uL Lymphocytes # (1.0-4.8) k/uL Monocytes # (0-1.0) k/uL Eosinophils # (0-0.7) k/uL Basophils # (0-0.2) k/uL Manual Slide Review Macrocytosis Sodium (137-145) mmol/L Potassium (3.5-5.1) mmol/L Chloride (98-107) mmol/L Carbon Dioxide (22-30) mmol/L Anion Gap mmol/L BUN (7-17) mg/dL Creatinine (0.52-1.04) mg/dL Est GFR (MDRD) Af Amer (>60 ml/min/1.73 sqM) Est GFR (MDRD) Non-Af (>60 ml/min/1.73 sqM) Glucose (74-99) mg/dL Calcium (8.4-10.2) mg/dL Total Bilirubin (0.2-1.3) mg/dL AST (14-36) U/L ALT (9-52) U/L Alkaline Phosphatase (38-126) U/L Total Protein (6.3-8.2) g/dL Albumin (3.5-5.0) g/dL Amylase (30-110) U/L Lipase (23-300) U/L Urine Color Urine Appearance (Clear) Urine pH (5.0-8.0) Ur Specific [place] (1.001-1.035) Urine Protein (Negative) Urine Glucose (UA) (Negative) Urine Ketones (Negative) Urine Blood (Negative) Urine Nitrite (Negative) Urine Bilirubin (Negative) Urine Urobilinogen (<2.0) mg/dL Ur Leukocyte Esterase (Negative) Urine RBC (0-5) /hpf Urine WBC (0-5) /hpf Ur Squamous Epith Cells (0-4) /hpf Urine Bacteria (None) /hpf Urine Yeast (Budding) (None) /hpf Serum Alcohol 360 mg/dL Disposition <Paulino Mendez - Last Filed: 07/29/17 19:49> <Angi Zamora - Last Filed: 09/19/17 18:11> Clinical Impression: Alcohol intoxication Disposition: HOME SELF-CARE Instructions: Alcohol Intoxication (ED), Abuse of Alcohol (ED) Referrals: Patricia Alvarez MD [Primary Care Provider] - 1-2 days
[2017-07-29 17:14] LABS: ALT 44 U/L (9-52); AST 69 U/L (14-36); Albumin 3.9 g/dL (3.5-5.0); Alkaline Phosphatase 182 U/L (38-126); Amylase 78 U/L (30-110); Anion Gap 11 mmol/L; Blood Urea Nitrogen 8 mg/dL (7-17); Calcium 9.4 mg/dL (8.4-10.2); Carbon Dioxide 26 mmol/L (22-30); Chloride 108 mmol/L (98-107); Glucose 116 mg/dL (74-99); Lipase 101 U/L (23-300); Potassium 4.1 mmol/L (3.5-5.1); Sodium 145 mmol/L (137-145); Total Bilirubin 0.3 mg/dL (0.2-1.3); Total Protein 6.9 g/dL (6.3-8.2)
[2017-07-29 17:27] LABS: Appearance,Urine Cloudy (Clear); Bacteria,Urine Rare /hpf; Bilirubin,Urine Negative (Negative); Blood,Urine Negative (Negative); Budding Yeast,Urine Rare /hpf; Color,Urine Colorless; Glucose,Urine (UA) Negative (Negative); Ketones,Urine Negative (Negative); Leukocyte Esterase,Urine Small (Negative); Nitrite,Urine Negative (Negative); PH, Urine 5.5 (5.0-8.0); Protein,Urine Negative (Negative); RBC,Urine 1 /hpf (0-5); Specific Gravity,Urine 1.004 (1.001-1.035); Squamous Epithelial Cell,Urine 10 /hpf (0-4); Urobilinogen,Urine <2.0 mg/dL (<2.0); WBC,Urine 2 /hpf (0-5)
--- NOTE | 2017-07-29 17:47 | XR ---
EXAMINATION TYPE: XR KUB DATE OF EXAM: 07/29/2017 5:30 PM CLINICAL HISTORY: Abdominal pain and discomfort TECHNIQUE: Two Upright KUB images of the abdomen are obtained. COMPARISON: CT abdomen December 17, 2016. FINDINGS: Gas is seen in nondistended stomach. Scattered gas is seen in non-distended small bowel loo ps. Gas and fecal material is seen in non-distended colon. No suspicious air-fluid levels are present . Scattered pelvic phleboliths are redemonstrated. No pneumoperitoneum is seen. Lung bases are clear. Osseous structures are intact. IMPRESSION: Overall nonobstructive bowel gas pattern.
--- NOTE | 2017-07-29 19:14 | US ---
EXAMINATION TYPE: US abdomen limited DATE OF EXAM: 07/29/2017 COMPARISON: CT abdomen December 17, 2016 CLINICAL HISTORY: Pain. RUQ pain EXAM MEASUREMENTS: Liver Length: 14 cm Gallbladder Wall: 0.21 cm CBD: 0.6 cm Right Kidney: 8.4 x 3.1 x 3.3 cm Gallbladder 8.5cm echogenic areas seen along posterior wall Pancreas: Obscured by bowel gas Liver: Increased attenuation Gallbladder: Unremarkable Evidence for sonographic Lopez's sign: No CBD: 0.6 cm WNL Right Kidney: No hydronephrosis or masses seen IMPRESSION: No shadowing mobile gallstones or ultrasound evidence for acute cholecystitis. Diffuse fa tty infiltration of liver is redemonstrated.
[2017-07-30 00:07] VITALS: BP 138/88; PULSE 115; RESP 18; TEMP 97.6
== END 2017-07-30 00:05 | disposition home or self-care (01) ==
LOC: EC 16:18
DX: F10.129 Alcohol abuse with intoxication, unspecified (principal); R10.10 Upper abdominal pain, unspecified; R11.2 Nausea with vomiting, unspecified; K21.9 Gastro-esophageal reflux disease without esophagitis; I10 Essential (primary) hypertension; J44.9 Chronic obstructive pulmonary disease, unspecified; E07.9 Disorder of thyroid, unspecified; F17.200 Nicotine dependence, unspecified, uncomplicated; Z79.51 Long term (current) use of inhaled steroids; Z79.899 Other long term (current) drug therapy; Y90.8 Blood alcohol level of 240 mg/100 ml or more
CPT/HCPCS: 36415; 80053; 82150; 83690; 85025; 81001; 80320; 74000; 76705; 99284; 96374; 96375 ×2; J2060; J2405

== ENCOUNTER 2017-08-21 14:59 | Inpatient (IN) | payer OTHER ==
[2017-08-21] MEDS ORDERED: oxyCODONE-APAP 5-325MG 1 EACH TAB PO PRN (17:52)
[2017-08-21] MEDS ORDERED: NALOXONE 0.4 MG/ML 1 ML VIAL IV PRN (17:52)
[2017-08-21] MEDS ORDERED: ACETAMINOPHEN TAB 325 MG TAB PO PRN (17:52)
[2017-08-21] MEDS ORDERED: ALBUTEROL NEBULIZED 2.5 MG/3 ML INHALATION PRN (17:54)
[2017-08-21 19:12] LABS: ALT 74 U/L (9-52); AST 203 U/L (14-36); Albumin 2.9 g/dL (3.5-5.0); Alkaline Phosphatase 271 U/L (38-126); Anion Gap 10 mmol/L; Blood Urea Nitrogen 7 mg/dL (7-17); Calcium 9.2 mg/dL (8.4-10.2); Carbon Dioxide 27 mmol/L (22-30); Chloride 98 mmol/L (98-107); Glucose 106 mg/dL (74-99); Sodium 135 mmol/L (137-145); Total Bilirubin 0.8 mg/dL (0.2-1.3); Total Protein 5.8 g/dL (6.3-8.2)
[2017-08-21 19:14] LABS: Potassium 4.6 mmol/L (3.5-5.1)
[2017-08-21 19:16] LABS: Basophils % (A) 1 %; Eosinophils # (A) 0.1 k/uL (0-0.7); Eosinophils % (A) 1 %; HCT 37.1 % (34.0-46.0); HGB 11.8 gm/dL (11.4-16.0); Lymphocytes # (A) 1.6 k/uL (1.0-4.8); Lymphocytes % (A) 20 %; MCH 34.9 pg (25.0-35.0); MCHC 31.8 g/dL (31.0-37.0); MCV 109.9 fL (80.0-100.0); Macrocytosis Marked; Mean Platelet Volume 7.1; Monocytes # (A) 0.5 k/uL (0-1.0); Monocytes % (A) 6 %; Neutrophils # (A) 5.5 k/uL (1.3-7.7); Neutrophils % (A) 70 %; Platelet Count 188 k/uL (150-450); RBC 3.37 m/uL (3.80-5.40); RDW 12.6 % (11.5-15.5); WBC 7.9 k/uL (3.8-10.6)
[2017-08-21 19:21] LABS: Appearance,Urine Cloudy (Clear); Bacteria,Urine Moderate /hpf; Bilirubin,Urine Negative (Negative); Blood,Urine Negative (Negative); Color,Urine Yellow; Glucose,Urine (UA) Negative (Negative); Ketones,Urine Negative (Negative); Leukocyte Esterase,Urine Large (Negative); Mucus,Urine Rare /hpf; Nitrite,Urine Negative (Negative); Protein,Urine Trace (Negative); RBC,Urine 5 /hpf (0-5); Squamous Epithelial Cell,Urine 1 /hpf (0-4); WBC,Urine 171 /hpf (0-5)
[2017-08-21] MEDS: SODIUM CHLORIDE 0.9% 1,000 ML IV SCH (19:42)
[2017-08-21 19:45] LABS: Anisocytosis (M) Present
[2017-08-21] MEDS: SYMBICORT 160-4.5 MCG INHALER INHALATION SCH (20:18)
[2017-08-21 20:30] LABS: T4, Free (Free Thyroxine) 0.37 ng/dL (0.78-2.19)
[2017-08-21] MEDS ORDERED: LORazepam 2 MG/ML INJ IV STA (20:54)
[2017-08-21] MEDS ORDERED: WATER FOR INJECTION, STERILE 10 ML IV ONE (20:58)
[2017-08-21 21:09] LABS: Amylase 54 U/L (30-110); Lipase 35 U/L (23-300)
[2017-08-21] MEDS: SPIRONOLACTONE 25 MG TAB PO SCH (22:28)
[2017-08-21] MEDS: MELATONIN 3 MG TABLET PO PRN (22:28)
[2017-08-21] MEDS ORDERED: LORazepam 2 MG/ML INJ IV PRN ×3 (22:44)
[2017-08-21] MEDS: HEPARIN SODIUM,PORCINE 5,000 UNIT/ML 1 ML VIAL SQ SCH (22:49)
[2017-08-21] MEDS: HYDROcodone/APAP 5-325MG 1 EACH TAB PO PRN (22:49)
--- NOTE | 2017-08-21 23:16 | HP ---
HISTORY AND PHYSICAL CHIEF COMPLAINTS: Abdominal pain, nausea, vomiting. HISTORY OF PRESENT ILLNESS: This 47-year-old woman with a past history of chronic alcoholism, history of possible cirrhosis, given chronic liver damage, liver disease and history of COPD, GERD, hypertension, history of hypothyroidism, tubal ligation, anxiety, being followed by Dr. Patrciia Alvarez in the outpatient setting, apparently was drinking heavily. The patient was drinking up to 12 beers per day plus a pint of whiskey. The last drink was today at 4:00 p.m. and the patient also complaining of abdominal pain which in the anterior part of the abdomen and which is radiating to the back sometimes and also has been vomiting. Because in increasing complaints, the patient came to [facility] and admitted for further evaluation and treatment. The patient is slightly jittery at this time, showing early delirium tremens. There is no history of fever, rigors. No history of headache, loss of conscious or seizures. PAST MEDICAL HISTORY: Hepatitis C, history EtOH abuse, GERD, COPD, hypertension, hypothyroidism. MEDICATIONS PRIOR TO ADMISSION: Include home medications are: 1. Symbicort 160/4.5, 2 puffs b.i.d. 2. Ventolin 2 puffs every 6 hours. 3. Aldactone 50 mg b.i.d. 4. Prilosec 20 mg daily. 5. Habitrol 1 daily. 6. Multivitamin 1 p.o. daily. 7. Synthroid 112 mcg p.o. daily. 8. [place] 5 mg every 6 hours p.r.n. 9. Lasix 40 mg daily. 10.Folic acid 1 mg daily. 11.Spiriva 1 puff daily. 08351 mg p.o. daily. ALLERGIES: None. FAMILY HISTORY: History of hepatitis C. SOCIAL HISTORY: History of alcohol, history of THC, history of smoking. REVIEW OF SYSTEMS: ENT: No diminished hearing, diminished vision. CARDIOVASCULAR: As mentioned earlier. RESPIRATORY: As mentioned earlier. GI: Nausea and vomiting. : As mentioned earlier. NERVOUS: No numbness or weakness. ALLERGY/IMMUNOLOGY: No asthma or hay fever. MUSCULOSKELETAL: As mentioned earlier. HEMATOLOGY/ONCOLOGY: No history of anemia. ENDOCRINE: No history of diabetes. Hypothyroidism. CONSTITUTIONAL: As mentioned earlier. DERMATOLOGY: Negative. RHEUMATOLOGY: Negative. PSYCHIATRY: As mentioned earlier. PHYSICAL EXAMINATION: Alert and oriented x3. Pulse is 88, blood pressure 112/87, respirations 16, temperature 99.8, pulse ox 100% on room air. HEENT: Conjunctivae normal. Oral mucosa moist. NECK: No jugular venous distention. No carotid bruit. No lymph node enlargement. CARDIOVASCULAR: S1, S2 muffled. No S3. No S4. RESPIRATORY: Breath sounds diminished in the bases. A few scattered rhonchi and crackles. ABDOMEN: Soft. Mild diffuse tenderness present. Mild diffuse distention also present. No ascites. No hepatosplenomegaly. LEGS: No edema. No swelling. NERVOUS SYSTEM: Higher functions as mentioned earlier. Moves all 4 limbs. No focal motor or sensory deficit, but diffuse tremors present. Some mild dysarthria also present. Otherwise moves all 4 limbs in all directions. No nystagmus. SKIN: No ulcer, rash or bleeding. LYMPHATIC: No lymphadenopathy in neck or axillae. JOINTS: No active deformity, arthropathy. LABS: WBC 7.8, hemoglobin 11.2. Sodium 135. AST is 203, ALT is 74, alk phos is 271. TSH more than 100 and free T4 0.37. UA noted. is normal. ASSESSMENT: 1. Abdominal pain and vomiting, possible acute gastritis secondary to alcohol. 2. Alcoholic hepatitis. 3. Acute delirium tremens. 4. Hypothyroidism, severe. 5. Increased MCV. 6. Urinary tract infection. 7. Gastroesophageal reflux disease. 8. Chronic obstructive pulmonary disease. 9. Hypothyroidism. 10.Fatty liver. 11.History of pancreatitis. 12.History hepatitis C. 13.History of EtOH abuse. 14.History of anxiety. 15.History of nicotine dependence. RECOMMENDATIONS AND DISCUSSION: In this 47-year-old woman who presented with multiple complex medical issues, will monitor the patient closely. Continue with the current medical management and symptomatic treatment. Otherwise at this time, [place] protocol, Ativan p.r.n., Protonix, symptomatic treatment. Otherwise, I would recommend to follow the patient closely. See orders for further details. Prognosis guarded because of multiple complex medical issues. Further recommendations to follow. A copy of this dictation will be forwarded to Dr. Patricia Alvarez, who is the primary physician. MMODL / IJN: [id number] / [facility]
[2017-08-22 04:06] LABS: Hepatitis A Antibody IgM Non-Reactive (Non-Reactive); Hepatitis B Core IgM Non-Reactive (Non-Reactive)
[2017-08-22] MEDS: PANTOPRAZOLE 40 MG TABLET PO SCH (06:29)
[2017-08-22] MEDS: LEVOTHYROXINE 112 MCG TAB PO SCH (06:29)
[2017-08-22 06:31] LABS: Basophils % (A) 1 %; Eosinophils # (A) 0.1 k/uL (0-0.7); Eosinophils % (A) 2 %; HCT 34.8 % (34.0-46.0); HGB 10.8 gm/dL (11.4-16.0); Lymphocytes # (A) 1.5 k/uL (1.0-4.8); Lymphocytes % (A) 28 %; MCH 34.6 pg (25.0-35.0); MCV 111.6 fL (80.0-100.0); Mean Platelet Volume 7.6; Monocytes # (A) 0.5 k/uL (0-1.0); Monocytes % (A) 9 %; Neutrophils % (A) 56 %; Platelet Count 168 k/uL (150-450); RBC 3.12 m/uL (3.80-5.40); RDW 12.6 % (11.5-15.5); WBC 5.3 k/uL (3.8-10.6)
[2017-08-22] MEDS: ALPRAZolam 0.25 MG TAB PO PRN ×3 (06:37→22:32)
[2017-08-22] MEDS: HYDROcodone/APAP 5-325MG 1 EACH TAB PO PRN ×3 (06:37→21:25)
[2017-08-22 06:43] LABS: Macrocytosis Marked
[2017-08-22 06:46] LABS: Anion Gap 5 mmol/L; Blood Urea Nitrogen 9 mg/dL (7-17); Calcium 8.6 mg/dL (8.4-10.2); Carbon Dioxide 30 mmol/L (22-30); Chloride 103 mmol/L (98-107); Glucose 135 mg/dL (74-99); Potassium 4.3 mmol/L (3.5-5.1); Sodium 138 mmol/L (137-145)
[2017-08-22] MEDS: IPRATROPIUM 0.5 MG/2.5 ML NEBU INHALATION SCH ×4 (09:21→21:03)
[2017-08-22] MEDS: SYMBICORT 160-4.5 MCG INHALER INHALATION SCH ×2 (09:21→21:03)
[2017-08-22] MEDS: SPIRONOLACTONE 25 MG TAB PO SCH ×2 (10:01→21:21)
[2017-08-22] MEDS: THIAMINE 100 MG TAB PO SCH (10:01)
[2017-08-22] MEDS: HEPARIN SODIUM,PORCINE 5,000 UNIT/ML 1 ML VIAL SQ SCH ×2 (10:01→21:20)
[2017-08-22] MEDS: NICOTINE 21MG/24HR PATCH TRANSDERM SCH (10:02)
[2017-08-22] MEDS: MULTIVITAMINS, THERA 1 EACH TAB PO SCH (13:22)
[2017-08-22] MEDS: FOLIC ACID 1 MG TAB PO SCH (13:22)
[2017-08-22] MEDS: LEVOFLOXACIN 500MG-D5W PMX 500 MG in DEXTROSE/WATER 1 100ML.BAG IVPB SCH (13:33)
[2017-08-22] MEDS: LIPASE 5,000/PROTEASE 17,000/AMYLASE 27,0000 PO SCH ×2 (13:33→18:00)
[2017-08-22 15:10] VITALS: BMI 16.4
[2017-08-22] MEDS: SODIUM CHLORIDE 0.9% 1,000 ML IV SCH (16:12)
[2017-08-22] MEDS: MELATONIN 3 MG TABLET PO PRN (22:32)
[2017-08-23] MEDS: HYDROcodone/APAP 5-325MG 1 EACH TAB PO PRN ×2 (06:19→13:12)
[2017-08-23] MEDS: LEVOTHYROXINE 112 MCG TAB PO SCH (06:20)
[2017-08-23] MEDS: LIPASE 5,000/PROTEASE 17,000/AMYLASE 27,0000 PO SCH ×2 (06:21→12:11)
[2017-08-23] MEDS: PANTOPRAZOLE 40 MG TABLET PO SCH (06:21)
[2017-08-23 07:20] LABS: Basophils % (A) 1 %; Eosinophils # (A) 0.1 k/uL (0-0.7); Eosinophils % (A) 2 %; HCT 37.2 % (34.0-46.0); HGB 11.5 gm/dL (11.4-16.0); Lymphocytes # (A) 1.5 k/uL (1.0-4.8); Lymphocytes % (A) 25 %; Mean Platelet Volume 8.2; Monocytes # (A) 0.5 k/uL (0-1.0); Monocytes % (A) 8 %; Neutrophils # (A) 3.6 k/uL (1.3-7.7); Neutrophils % (A) 61 %; Platelet Count 162 k/uL (150-450); RBC 3.29 m/uL (3.80-5.40); RDW 12.6 % (11.5-15.5); WBC 5.8 k/uL (3.8-10.6)
[2017-08-23 07:22] LABS: Macrocytosis Marked
[2017-08-23 07:30] LABS: Anion Gap 6 mmol/L; Blood Urea Nitrogen 8 mg/dL (7-17); Calcium 8.5 mg/dL (8.4-10.2); Carbon Dioxide 26 mmol/L (22-30); Chloride 103 mmol/L (98-107); Glucose 117 mg/dL (74-99); Potassium 4.9 mmol/L (3.5-5.1); Sodium 135 mmol/L (137-145)
[2017-08-23] MEDS: SYMBICORT 160-4.5 MCG INHALER INHALATION SCH (08:10)
[2017-08-23] MEDS: IPRATROPIUM 0.5 MG/2.5 ML NEBU INHALATION SCH ×2 (08:10→11:34)
--- NOTE | 2017-08-23 08:30 | PN ---
PROGRESS NOTE DATE OF SERVICE: 08/22/17 INTERVAL HISTORY: This 47-year-old woman who was admitted with abdominal pain, nausea, vomiting, and possibly acute gastritis secondary to ETOH. The patient also has some withdrawal symptoms also. No fever and no cough. EXAM: Alert and oriented times three. Pulse 62. Blood pressure 170/60. Respirations 18. Temperature 98.7, pulse ox 98% on room air. HEENT is conjunctivae normal. Neck is no jugular venous distention. Cardiovascular: S1, S2. Respiratory: Breath sounds diminished in the bases. No rhonchi and no crackles. Abdomen soft, mild diffuse discomfort in the epigastrium. Legs no edema. No swelling. Central nervous system: No focal deficits. LABS: The AST is 203, ALT 74, and bilirubin 0.8. TSH is more than 100. UA possibly urinary tract infection. Hepatitis panel is not reactive. Influenza is not reactive. ASSESSMENT: 1. Acute abdominal pain with possible acute gastritis secondary to alcohol. 2. Alcoholic hepatitis. 3. Acute delirium tremens. 4. Hypothyroidism, severe. 5. Possible history of noncompliance. 6. Increased MCV. 7. Urinary tract infection. 8. Gastroesophageal reflux disease. 9. Chronic obstructive pulmonary disease. 10.Hypothyroidism history. 11.History of fatty liver, history of pancreatitis, history of hepatitis C with currently markers negative. 12.History of ETOH abuse. 13.History of anxiety. 14.History of nicotine dependence. RECOMMENDATIONS AND DISCUSSION: Recommend to continue current medications, medical management and continue with monitoring with symptomatic treatment. At this time I recommend continue with the antibiotics. Continue to monitor. Increase ambulation. CIWA protocol. Protonix. Advance diet. Increase ambulation. Guarded prognosis. Further recommendations to follow. MMODL / IJN: [id number] /
[2017-08-23] MEDS: SODIUM CHLORIDE 0.9% 1,000 ML IV SCH (08:41)
[2017-08-23] MEDS: SPIRONOLACTONE 25 MG TAB PO SCH (08:41)
[2017-08-23] MEDS: NICOTINE 21MG/24HR PATCH TRANSDERM SCH (08:41)
[2017-08-23] MEDS: HEPARIN SODIUM,PORCINE 5,000 UNIT/ML 1 ML VIAL SQ SCH (08:41)
[2017-08-23] MEDS: THIAMINE 100 MG TAB PO SCH (08:41)
[2017-08-23 08:47] VITALS: TEMP 97.6
[2017-08-23] MEDS: ALPRAZolam 0.25 MG TAB PO PRN (08:50)
[2017-08-23 12:11] VITALS: BP 140/89; PULSE 73; RESP 16
[2017-08-23] MEDS: FOLIC ACID 1 MG TAB PO SCH (12:11)
[2017-08-23] MEDS: MULTIVITAMINS, THERA 1 EACH TAB PO SCH (12:11)
[2017-08-23] MEDS: LEVOFLOXACIN 500MG-D5W PMX 500 MG in DEXTROSE/WATER 1 100ML.BAG IVPB SCH (12:11)
--- NOTE | 2017-08-24 12:31 | DS ---
DISCHARGE SUMMARY DATE OF SERVICE: 08/23/2017. FINAL DIAGNOSES: 1. Acute abdominal pain with possible acute gastritis secondary to alcohol. 2. Alcoholic hepatitis. 3. Acute delirium tremens. 4. Hypothyroidism, severe. 5. Possible history of noncompliance. 6. History increased MCV. 7. Urinary tract infection. 8. Gastroesophageal reflux disease. 9. Chronic obstructive pulmonary disease. 10.Hypothyroid history. 11.History of fatty liver. 12.History of pancreatitis. 13.History hepatitis C with the current markers negative. 14.History of EtOH abuse. 15.History of anxiety. 16.History of nicotine dependence. DISCHARGE DISPOSITION: The patient will be discharged in a stable condition with guarded prognosis. HISTORY OF PRESENT ILLNESS: This is a 47-year-old woman with a past medical history of multiple medical problems being followed Dr. Patricia Alvarez in the outpatient setting was admitted with features abdominal pain. The patient had normal enzymes. The patient was treated for gastritis. Patient had significant ETOH issues and no complaints also. The patient improved significantly. Patient will be discharged home in a stable condition with guarded prognosis. AST was 203, ALT was 74. TSH is more than 100 and free T4 was 0.37. Medications restarted. Patient also with features of UTI. Hepatitis panel is negative the discharge next diet is cardiac. 1. Activity limited. Followup admission: 2-3 days. MEDICATIONS ARE: As follows: 1. Albuterol 2 puffs q.6 p.r.n. 2. Symbicort 160/4.5 two puffs b.i.d. 3. Folic acid 1 mg p.o. daily. 4. Lasix 40 mg p.o. daily. 5. [place] 5 mg q.6 p.r.n. 6. Levaquin 500 mg p.o. daily for 5 days. 7. Levothyroxine 112 mcg p.o. daily. 8. Zenpep as before. 9. Ativan 1 mg t.i.d. p.r.n. for anxiety. 10.Multivitamin 1 p.o. daily. 11.Habitrol 20 one daily. 12.Prilosec 20 mg p.o. daily. 13.Aldactone 50 mg p.o. b.i.d. 14.Thiamin 100 mg p.o. daily. 15.Spiriva 1 puff daily. MMODL / IJN: [id number] /
== END 2017-08-23 16:15 | disposition home or self-care (01) | DRG 897 ==
LOC: 6PED 17:26 → 6SEL 21:23
PROVIDERS: ADMIT Hospitalist; ATTEND Hospitalist
DX: F10.231 Alcohol dependence with withdrawal delirium (principal); K70.10 Alcoholic hepatitis without ascites; K76.0 Fatty (change of) liver, not elsewhere classified; E03.9 Hypothyroidism, unspecified; N39.0 Urinary tract infection, site not specified; K29.20 Alcoholic gastritis without bleeding; K21.9 Gastro-esophageal reflux disease without esophagitis; J44.9 Chronic obstructive pulmonary disease, unspecified; F41.9 Anxiety disorder, unspecified; Z87.891 Personal history of nicotine dependence; Z86.19 Personal history of other infectious and parasitic diseases; Z79.899 Other long term (current) drug therapy; Z79.51 Long term (current) use of inhaled steroids; Z79.891 Long term (current) use of opiate analgesic; Z98.51 Tubal ligation status; Z91.19 Patient's noncompliance with other medical treatment and regimen
CPT/HCPCS: 80048; 80053; 80074; 81001; 82150; 83690; 84439; 84443; 85025; 87045; 87046; 87502; 89055; 93005; 94640

== ENCOUNTER → 2018-03-03 | Outpatient (CLI) | payer OTHER ==
--- NOTE | 2018-03-03 23:25 | CT ---
EXAMINATION TYPE: CT pancreas biphase DATE OF EXAM: 03/03/2018 COMPARISON: CT 12/17/2016 HISTORY: 47-year-old female abnormal findings on diagnostic imaging/pancreatic cyst TECHNIQUE: Contiguous axial scanning of the abdomen before and after administration of 91 ml Isovue-3 70 IV contrast. Coronal and sagittal reconstructions performed. CT DLP: 523.6 mGycm Automated exposure control for dose reduction was used. FINDINGS: Heart normal size without pericardial effusion. Lung bases clear without pleural effusion. No focal liver lesion. There is mild intrahepatic and extrahepatic biliary ductal dilatation, increas ed from 12/17/2016. Bile duct measures 1 cm. This can be correlated with alkaline phosphatase and level s to exclude biliary obstruction. There is no abnormal gallbladder distention. Portal venous system i s patent. Mild diffuse thickening of the left adrenal gland is unchanged. The right adrenal gland, kidneys, and spleen appear within normal limits. Diffuse gastric fold thickening as well as patulous, fluid-filled small bowel loops with mucosal hype remia and diffuse wall thickening of the colon. Normal appendix. The pancreas is again noted to be mildly atrophic with diffuse pancreatic calcifications. Main pancre atic duct at the level of the head measures 5 mm. The main pancreatic duct at the level of the tail i s slightly more pronounced at 4 mm. The previously seen cystic pancreatic tail lesion on 06/25/2015 is no longer identified. Prominent peripancreatic lymph nodes measuring up to 9 mm, largely unchanged from 12/17/2016. No free fluid or free air. Bones: No osseous destructive process. IMPRESSION: 1. REDEMONSTRATED CHANGES OF CHRONIC PANCREATITIS. THE CYSTIC PANCREATIC TAIL LESION SEEN ON MRI OF 1 08/25/2014 IS NO LONGER IDENTIFIED AND COULD HAVE REPRESENTED A NOW INVOLUTED PSEUDOCYST. 2. MILD INTRAHEPATIC AND EXTRAHEPATIC BILIARY DUCTAL DILATATION, INCREASED FROM 12/17/2016. CORRELATE W ITH ALKALINE PHOSPHATASE AND BILIRUBIN LEVELS TO EXCLUDE THE POSSIBILITY OF BILIARY OBSTRUCTION. 3. DIFFUSE GASTRIC FOLD THICKENING, PATULOUS, FLUID-FILLED SMALL BOWEL LOOPS WITH MUCOSAL HYPEREMIA, AND PANCOLONIC WALL THICKENING. CORRELATE FOR GENERALIZED ILEUS OR GASTROENTERITIS AND COLITIS.
== END | disposition home or self-care (01) ==
LOC: RADCTMAIN 18:41
DX: K86.1 Other chronic pancreatitis (principal); K86.2 Cyst of pancreas; K83.8 Other specified diseases of biliary tract; K31.89 Other diseases of stomach and duodenum
CPT/HCPCS: 74160; Q9967

== ENCOUNTER 2018-03-20 10:40 | Emergency (ER) | payer OTHER ==
[2018-03-20] MEDS ORDERED: SODIUM CHLORIDE 0.9% 1,000 ML IV STA ×2 (10:43)
--- NOTE | 2018-03-20 11:10 | ED ---
General Adult HPI - General Source: EMS, RN notes reviewed, old records reviewed Mode of arrival: EMS Limitations: no limitations <Dalton Barrientos - Last Filed: 03/20/18 11:09> <Enrique Corey - Last Filed: 03/21/18 04:56> - General Chief complaint: Abdominal Pain Stated complaint: Pancreatitis Time Seen by Provider: 03/20/18 10:43 - History of Present Illness Initial comments: This is a 47-year-old female the ER for evaluation. Patient is well-known to this emergency room for mental health and substance abuse. Patient is presenting today for evaluation of bowel pain, doesn't positive alcohol intoxication. Patient's history and is difficult to obtained secondary to intoxication (Dalton Barrientos) - Related Data Home Medications Medication Instructions Recorded Confirmed Omeprazole [PriLOSEC] 20 mg PO DAILY 07/17/15 08/21/17 Albuterol Inhaler [Ventolin Hfa 2 puff INHALATION RT-Q6H PRN 10/29/16 08/21/17 Inhaler] Budesonide-Formot 160-4.5 Mcg 2 puff INHALATION RT-BID 10/29/16 08/21/17 [Symbicort 160-4.5 Mcg Inhaler] Tiotropium 18 Mcg/Puff [Spiriva] 1 cap INHALATION RT-DAILY 10/29/16 08/21/17 Levothyroxine Sodium [Synthroid] 112 mcg PO DAILY 03/30/17 08/21/17 Spironolactone [Aldactone] 50 mg PO BID 03/30/17 08/21/17 Previous Rx's Medication Instructions Recorded Thiamine [Vitamin B-1] 100 mg PO DAILY #30 tablet 10/18/16 Folic Acid 1 mg PO DAILY #30 tablet 11/03/16 Furosemide [Lasix] 40 mg PO DAILY #30 tab 11/03/16 HYDROcodone/APAP 5-325MG [[place] 1 tab PO Q6HR PRN #20 tab 11/03/16 5-325] Multivitamins, Thera [Multivitamin 1 tab PO DAILY #30 tablet 11/03/16 (formulary)] Nicotine 21Mg/24Hr Patch [Habitrol] 1 patch TRANSDERM DAILY #12 patch 04/03/17 LORazepam [Ativan] 1 mg PO TID PRN #30 tab 08/23/17 Levofloxacin [Levaquin] 500 mg PO DAILY #5 tab 08/23/17 Lipase/Protease/Amylase [Zenpep 1 each PO AC-TID capsule. 08/23/17 5,000 Units Capsule] Allergies Allergy/AdvReac Type Severity Reaction Status Date / Time No Known Allergies Allergy Verified 03/20/18 10:56 Review of Systems ROS Other: All systems not noted in ROS Statement are negative. <Dalton Barrientos - Last Filed: 03/20/18 11:09> ROS Other: All systems not noted in ROS Statement are negative. <Enrique Corey - Last Filed: 03/21/18 04:56> ROS Statement: Those systems with pertinent positive or pertinent negative responses have been documented in the HPI. Past Medical History Past Medical History: COPD, GERD/Reflux, Hypertension, Thyroid Disorder Additional Past Medical History / Comment(s): FATTY LIVER MASS, PANCREATITIS, OCCASIONAL DIARRHEA, STATES RUNNY NOSE-NOT SURE IF IT IS ALLERGIES-DENIES ILLNESS. hep c, etoh abuse, smoker History of Any Multi-Drug Resistant Organisms: None Reported Past Surgical History: Tubal Ligation, Uterine Ablation Additional Past Surgical History / Comment(s): TUBAL WITH TUBE REMOVED . Past Anesthesia/Blood Transfusion Reactions: No Reported Reaction Past Psychological History: Anxiety Smoking Status: Current every day smoker Past Alcohol Use History: Abuse Past Drug Use History: Marijuana - Past Family History Mother Family Medical History: No Reported History Additional Family Medical History / Comment(s): Hep C <Dalton Barrientos - Last Filed: 03/20/18 11:09> General Exam Limitations: no limitations General appearance: alert, appears intoxicated, anxious Head exam: Present: atraumatic, normocephalic, normal inspection Eye exam: Present: normal appearance, PERRL, EOMI. Absent: scleral icterus, conjunctival injection, periorbital swelling ENT exam: Present: normal exam, mucous membranes moist Neck exam: Present: normal inspection. Absent: tenderness, meningismus, lymphadenopathy Respiratory exam: Present: normal lung sounds bilaterally. Absent: respiratory distress, wheezes, rales, rhonchi, stridor Cardiovascular Exam: Present: regular rate, normal rhythm, normal heart sounds. Absent: systolic murmur, diastolic murmur, rubs, gallop, clicks GI/Abdominal exam: Present: soft, normal bowel sounds. Absent: distended, tenderness, guarding, rebound, rigid Extremities exam: Present: normal inspection, full ROM, normal capillary refill. Absent: tenderness, pedal edema, joint swelling, calf tenderness Back exam: Present: normal inspection Neurological exam: Present: alert, oriented X3, CN II-XII intact Psychiatric exam: Present: normal affect, normal mood Skin exam: Present: warm, dry, intact, normal color. Absent: rash <Dalton Barrientos - Last Filed: 03/20/18 11:09> Course <Dalton Barrientos - Last Filed: 03/20/18 11:09> <Enrique Corey - Last Filed: 03/21/18 04:56> Vital Signs 03/20/18 03/20/18 03/20/18 10:51 17:07 18:37 Temperature 97.2 F L Pulse Rate 87 92 103 H Respiratory 18 18 20 Rate Blood Pressure 139/98 121/68 O2 Sat by Pulse 99 98 Oximetry 03/20/18 18:46 Temperature Pulse Rate 105 H Respiratory 20 Rate Blood Pressure O2 Sat by Pulse Oximetry - Reevaluation(s) Reevaluation #1: 03/20/18 11:10 Medical record and prior ER visits are reviewed (Dalton Barrientos) Medical Decision Making - Lab Data Result diagrams: 03/20/18 11:15 03/20/18 11:15 <Enrique Corey - Last Filed: 03/21/18 04:56> - Lab Data Lab Results 03/20/18 03/20/18 03/20/18 Range/Units 11:15 11:15 12:07 WBC 6.0 (3.8-10.6) k/uL RBC 4.16 (3.80-5.40) m/uL Hgb 13.5 (11.4-16.0) gm/dL Hct 42.0 (34.0-46.0) % MCV 101.1 H (80.0-100.0) fL MCH 32.6 (25.0-35.0) pg MCHC 32.2 (31.0-37.0) g/dL RDW 13.4 (11.5-15.5) % Plt Count 325 (150-450) k/uL Neutrophils % 52 % Lymphocytes % 35 % Monocytes % 7 % Eosinophils % 2 % Basophils % 0 % Neutrophils # 3.1 (1.3-7.7) k/uL Lymphocytes # 2.1 (1.0-4.8) k/uL Monocytes # 0.4 (0-1.0) k/uL Eosinophils # 0.1 (0-0.7) k/uL Basophils # 0.0 (0-0.2) k/uL Macrocytosis Slight Sodium 146 H (137-145) mmol/L Potassium 4.2 (3.5-5.1) mmol/L Chloride 112 H (98-107) mmol/L Carbon Dioxide 27 (22-30) mmol/L Anion Gap 7 mmol/L BUN 5 L (7-17) mg/dL Creatinine 0.78 (0.52-1.04) mg/dL Est GFR (CKD-EPI)AfAm >90 (>60 ml/min/1.73 sqM) Est GFR (CKD-EPI)NonAf >90 (>60 ml/min/1.73 sqM) Glucose 81 (74-99) mg/dL Calcium 8.3 L (8.4-10.2) mg/dL Total Bilirubin 0.3 (0.2-1.3) mg/dL AST 82 H (14-36) U/L ALT 47 (9-52) U/L Alkaline Phosphatase 228 H (38-126) U/L Total Protein 6.1 L (6.3-8.2) g/dL Albumin 3.2 L (3.5-5.0) g/dL Amylase 74 (30-110) U/L Lipase 57 (23-300) U/L Urine Color Urine Appearance (Clear) Urine pH (5.0-8.0) Ur Specific [place] (1.001-1.035) Urine Protein (Negative) Urine Glucose (UA) (Negative) Urine Ketones (Negative) Urine Blood (Negative) Urine Nitrite (Negative) Urine Bilirubin (Negative) Urine Urobilinogen (<2.0) mg/dL Ur Leukocyte Esterase (Negative) Urine HCG, Qual Not Detected (Not Detectd) Serum Alcohol 384 mg/dL 03/20/18 Range/Units 12:07 WBC (3.8-10.6) k/uL RBC (3.80-5.40) m/uL Hgb (11.4-16.0) gm/dL Hct (34.0-46.0) % MCV (80.0-100.0) fL MCH (25.0-35.0) pg MCHC (31.0-37.0) g/dL RDW (11.5-15.5) % Plt Count (150-450) k/uL Neutrophils % % Lymphocytes % % Monocytes % % Eosinophils % % Basophils % % Neutrophils # (1.3-7.7) k/uL Lymphocytes # (1.0-4.8) k/uL Monocytes # (0-1.0) k/uL Eosinophils # (0-0.7) k/uL Basophils # (0-0.2) k/uL Macrocytosis Sodium (137-145) mmol/L Potassium (3.5-5.1) mmol/L Chloride (98-107) mmol/L Carbon Dioxide (22-30) mmol/L Anion Gap mmol/L BUN (7-17) mg/dL Creatinine (0.52-1.04) mg/dL Est GFR (CKD-EPI)AfAm (>60 ml/min/1.73 sqM) Est GFR (CKD-EPI)NonAf (>60 ml/min/1.73 sqM) Glucose (74-99) mg/dL Calcium (8.4-10.2) mg/dL Total Bilirubin (0.2-1.3) mg/dL AST (14-36) U/L ALT (9-52) U/L Alkaline Phosphatase (38-126) U/L Total Protein (6.3-8.2) g/dL Albumin (3.5-5.0) g/dL Amylase (30-110) U/L Lipase (23-300) U/L Urine Color Colorless Urine Appearance Clear (Clear) Urine pH 6.0 (5.0-8.0) Ur Specific [place] 1.002 (1.001-1.035) Urine Protein Negative (Negative) Urine Glucose (UA) Negative (Negative) Urine Ketones Negative (Negative) Urine Blood Negative (Negative) Urine Nitrite Negative (Negative) Urine Bilirubin Negative (Negative) Urine Urobilinogen <2.0 (<2.0) mg/dL Ur Leukocyte Esterase Negative (Negative) Urine HCG, Qual (Not Detectd) Serum Alcohol mg/dL Disposition <Dalton Barrientos - Last Filed: 03/20/18 11:09> Is patient prescribed a controlled substance at d/c from ED?: No <Enrique Corey - Last Filed: 03/21/18 04:56> Clinical Impression: Alcohol intoxication Disposition: HOME SELF-CARE Condition: Good Instructions: Alcohol Intoxication (ED) Referrals: Patricia Alvarez MD [Primary Care Provider] - 1-2 days
[2018-03-20 11:36] LABS: Basophils % (A) 0 %; Eosinophils # (A) 0.1 k/uL (0-0.7); Eosinophils % (A) 2 %; HGB 13.5 gm/dL (11.4-16.0); Lymphocytes # (A) 2.1 k/uL (1.0-4.8); Lymphocytes % (A) 35 %; MCH 32.6 pg (25.0-35.0); MCHC 32.2 g/dL (31.0-37.0); MCV 101.1 fL (80.0-100.0); Macrocytosis Slight; Mean Platelet Volume 6.6; Monocytes # (A) 0.4 k/uL (0-1.0); Monocytes % (A) 7 %; Neutrophils # (A) 3.1 k/uL (1.3-7.7); Neutrophils % (A) 52 %; Platelet Count 325 k/uL (150-450); RBC 4.16 m/uL (3.80-5.40); RDW 13.4 % (11.5-15.5)
[2018-03-20 11:45] LABS: ALT 47 U/L (9-52); AST 82 U/L (14-36); Albumin 3.2 g/dL (3.5-5.0); Alkaline Phosphatase 228 U/L (38-126); Amylase 74 U/L (30-110); Anion Gap 7 mmol/L; Blood Urea Nitrogen 5 mg/dL (7-17); Calcium 8.3 mg/dL (8.4-10.2); Carbon Dioxide 27 mmol/L (22-30); Chloride 112 mmol/L (98-107); Glucose 81 mg/dL (74-99); Lipase 57 U/L (23-300); Potassium 4.2 mmol/L (3.5-5.1); Sodium 146 mmol/L (137-145); Total Bilirubin 0.3 mg/dL (0.2-1.3); Total Protein 6.1 g/dL (6.3-8.2)
[2018-03-20 11:58] LABS: Alcohol 384 mg/dL
[2018-03-20 12:20] LABS: Appearance,Urine Clear (Clear); Bilirubin,Urine Negative (Negative); Blood,Urine Negative (Negative); Color,Urine Colorless; Glucose,Urine (UA) Negative (Negative); Ketones,Urine Negative (Negative); Leukocyte Esterase,Urine Negative (Negative); Nitrite,Urine Negative (Negative); Protein,Urine Negative (Negative); Specific Gravity,Urine 1.002 (1.001-1.035); Urobilinogen,Urine <2.0 mg/dL (<2.0)
[2018-03-20] MEDS ORDERED: IPRATROPIUM-ALBUTEROL 3 ML NEB INHALATION STA (18:29)
[2018-03-21] MEDS ORDERED: chlordiazePOXIDE 25 MG CAP PO STA (04:55)
[2018-03-21 05:37] VITALS: BP 118/64; PULSE 76; RESP 17; TEMP 98.4
== END 2018-03-21 05:48 | disposition home or self-care (01) ==
LOC: EC 10:40
DX: F10.120 Alcohol abuse with intoxication, uncomplicated (principal); R10.9 Unspecified abdominal pain; J44.9 Chronic obstructive pulmonary disease, unspecified; K21.9 Gastro-esophageal reflux disease without esophagitis; I10 Essential (primary) hypertension; F17.200 Nicotine dependence, unspecified, uncomplicated; E07.9 Disorder of thyroid, unspecified; Z87.19 Personal history of other diseases of the digestive system; Z98.51 Tubal ligation status; Z79.51 Long term (current) use of inhaled steroids; Z79.899 Other long term (current) drug therapy; Z53.20 Procedure and treatment not carried out because of patient's decision for unspecified reasons
CPT/HCPCS: 36415; 80053; 80320; 81003; 81025; 82150; 83690; 85025; 87086; 94640; 96360; 96361; 99285

== ENCOUNTER 2018-12-07 21:29 | Emergency (ER) | payer OTHER ==
[2018-12-07] MEDS ORDERED: SODIUM CHLORIDE 0.9% 1,000 ML IV STA (21:35)
[2018-12-07] MEDS ORDERED: LORazepam 2 MG/ML INJ IV STA (21:36)
[2018-12-07] MEDS ORDERED: THIAMINE 100 MG/ML 2 ML VIAL IM STA (21:37)
--- NOTE | 2018-12-07 21:47 | ED ---
General Adult HPI - General Stated complaint: EPS, poss drug use Time Seen by Provider: 12/07/18 21:35 Source: patient, police, EMS, RN notes reviewed - History of Present Illness Initial comments: 48-year-old female brought in with suspected drug overdose, alcohol intoxication. Patient is somewhat altered, she's agitated, she resisted being brought to the emergency department. She does have history of polysubstance abuse. She admits to daily alcohol consumption. Patient is brought in by police and EMS. She is handcuffed. She was spitting at paramedics during transport. History limited based on clinic presentation. - Related Data Home Medications Medication Instructions Recorded Confirmed Omeprazole [PriLOSEC] 20 mg PO DAILY 07/17/15 08/21/17 Albuterol Inhaler [Ventolin Hfa 2 puff INHALATION RT-Q6H PRN 10/29/16 08/21/17 Inhaler] Budesonide-Formot 160-4.5 Mcg 2 puff INHALATION RT-BID 10/29/16 08/21/17 [Symbicort 160-4.5 Mcg Inhaler] Tiotropium 18 Mcg/Puff [Spiriva] 1 cap INHALATION RT-DAILY 10/29/16 08/21/17 Levothyroxine Sodium [Synthroid] 112 mcg PO DAILY 03/30/17 08/21/17 Spironolactone [Aldactone] 50 mg PO BID 03/30/17 08/21/17 Previous Rx's Medication Instructions Recorded Thiamine [Vitamin B-1] 100 mg PO DAILY #30 tablet 10/18/16 Folic Acid 1 mg PO DAILY #30 tablet 11/03/16 Furosemide [Lasix] 40 mg PO DAILY #30 tab 11/03/16 HYDROcodone/APAP 5-325MG [[place] 1 tab PO Q6HR PRN #20 tab 11/03/16 5-325] Multivitamins, Thera [Multivitamin 1 tab PO DAILY #30 tablet 11/03/16 (formulary)] Nicotine 21Mg/24Hr Patch [Habitrol] 1 patch TRANSDERM DAILY #12 patch 04/03/17 LORazepam [Ativan] 1 mg PO TID PRN #30 tab 08/23/17 Levofloxacin [Levaquin] 500 mg PO DAILY #5 tab 08/23/17 Lipase/Protease/Amylase [Zenpep Dr 1 each PO AC-TID capsule. 08/23/17 5,000 Unit Capsule] Allergies Allergy/AdvReac Type Severity Reaction Status Date / Time No Known Allergies Allergy Verified 03/20/18 10:56 Review of Systems ROS Statement: Those systems with pertinent positive or pertinent negative responses have been documented in the HPI. ROS Other: All systems not noted in ROS Statement are negative. Past Medical History Past Medical History: COPD, GERD/Reflux, Hypertension, Thyroid Disorder Additional Past Medical History / Comment(s): FATTY LIVER MASS, PANCREATITIS, OCCASIONAL DIARRHEA, STATES RUNNY NOSE-NOT SURE IF IT IS ALLERGIES-DENIES ILLNESS. hep c, etoh abuse, smoker History of Any Multi-Drug Resistant Organisms: None Reported Past Surgical History: Tubal Ligation, Uterine Ablation Additional Past Surgical History / Comment(s): TUBAL WITH TUBE REMOVED . Past Anesthesia/Blood Transfusion Reactions: No Reported Reaction Past Psychological History: Anxiety Smoking Status: Current every day smoker Past Alcohol Use History: Abuse Past Drug Use History: Marijuana - Past Family History Mother Family Medical History: No Reported History Additional Family Medical History / Comment(s): Hep C General Exam General appearance: appears intoxicated, anxious, in distress Head exam: Present: atraumatic, normocephalic Eye exam: Present: normal appearance, PERRL ENT exam: Present: mucous membranes dry, other ([place]) Neck exam: Present: full ROM. Absent: meningismus Respiratory exam: Present: normal lung sounds bilaterally. Absent: respiratory distress, wheezes Cardiovascular Exam: Present: normal rhythm, tachycardia GI/Abdominal exam: Present: soft. Absent: distended, tenderness, guarding Extremities exam: Present: full ROM, normal capillary refill. Absent: calf tenderness Neurological exam: Present: alert. Absent: motor sensory deficit Psychiatric exam: Present: agitated, anxious Skin exam: Present: warm, dry, intact. Absent: cyanosis, diaphoretic Course Vital Signs 12/07/18 12/08/18 21:35 00:26 Pulse Rate 68 72 Respiratory 22 16 Rate Blood Pressure 158/95 O2 Sat by Pulse 95 99 Oximetry EKG Findings - EKG Comments: EKG Findings:: EKG: Normal sinus rhythm, voltage QRS, rate of 64, FL interval 190, QTC 468, QRS duration 98, no ST segment changes Medical Decision Making - Medical Decision Making 48-year-old female presented with altered mental status, concern for intoxication and abuse of illicit drugs. Patient has a nonfocal exam, moving all extremities. Workup in the emergency department reveals head CT negative for intracranial hemorrhage mass effect, chest x-ray negative for focal pneumonia, there is concern for fit 6 rib fractures on the left. No underlying lung injury, no pneumothorax. Patient has urine drug screen which is positive for methamphetamines, her alcohol is 180. She has normal CBC. She is given thiamine, Ativan and IV fluids in the emergency department. She is observed awaiting sobriety. Vitals remained stable. At the time of reevaluation she is awake and alert, she is clinically sober. She has no new complaints. She will be discharged home. - Lab Data Result diagrams: 12/07/18 21:41 12/07/18 21:41 Lab Results 12/07/18 12/07/18 12/07/18 Range/Units 21:41 21:41 21:53 WBC 7.5 (3.8-10.6) k/uL RBC 4.17 (3.80-5.40) m/uL Hgb 13.0 (11.4-16.0) gm/dL Hct 40.7 (34.0-46.0) % MCV 97.6 (80.0-100.0) fL MCH 31.1 (25.0-35.0) pg MCHC 31.8 (31.0-37.0) g/dL RDW 14.7 (11.5-15.5) % Plt Count 342 (150-450) k/uL Neutrophils % (Manual) 43 % Lymphocytes % (Manual) 43 % Monocytes % (Manual) 10 % Eosinophils % (Manual) 3 % Basophils % (Manual) 1 % Neutrophils # (Manual) 3.23 (1.3-7.7) k/uL Lymphocytes # (Manual) 3.23 (1.0-4.8) k/uL Monocytes # (Manual) 0.75 (0-1.0) k/uL Eosinophils # (Manual) 0.23 (0-0.7) k/uL Basophils # (Manual) 0.08 (0-0.2) k/uL Nucleated RBCs 0 (0-0) /100 WBC Manual Slide Review Performed Sodium 143 (137-145) mmol/L Potassium 4.6 (3.5-5.1) mmol/L Chloride 114 H (98-107) mmol/L Carbon Dioxide 18 L (22-30) mmol/L Anion Gap 11 mmol/L BUN 15 (7-17) mg/dL Creatinine 1.12 H (0.52-1.04) mg/dL Est GFR (CKD-EPI)AfAm 68 (>60 ml/min/1.73 sqM) Est GFR (CKD-EPI)NonAf 59 (>60 ml/min/1.73 sqM) Glucose 73 L (74-99) mg/dL Plasma Lactic Acid [place] 1.3 (0.7-2.0) mmol/L Calcium 10.2 (8.4-10.2) mg/dL Total Bilirubin 0.3 (0.2-1.3) mg/dL AST 57 H (14-36) U/L ALT 28 (9-52) U/L Alkaline Phosphatase 180 H (38-126) U/L Total Protein 7.9 (6.3-8.2) g/dL Albumin 4.7 (3.5-5.0) g/dL Urine Color Urine Appearance (Clear) Urine pH (5.0-8.0) Ur Specific [place] (1.001-1.035) Urine Protein (Negative) Urine Glucose (UA) (Negative) Urine Ketones (Negative) Urine Blood (Negative) Urine Nitrite (Negative) Urine Bilirubin (Negative) Urine Urobilinogen (<2.0) mg/dL Ur Leukocyte Esterase (Negative) Salicylates 28.4 mg/dL Urine Opiates Screen (NotDetected) Ur Oxycodone Screen (NotDetected) Urine Methadone Screen (NotDetected) Ur Propoxyphene Screen (NotDetected) Acetaminophen <10.0 ug/mL Ur Barbiturates Screen (NotDetected) U Tricyclic Antidepress (NotDetected) Ur Phencyclidine Scrn (NotDetected) Ur Amphetamines Screen (NotDetected) U Methamphetamines Scrn (NotDetected) U Benzodiazepines Scrn (NotDetected) Urine Cocaine Screen (NotDetected) U Marijuana (THC) Screen (NotDetected) Serum Alcohol 183 mg/dL 12/07/18 Range/Units 23:05 WBC (3.8-10.6) k/uL RBC (3.80-5.40) m/uL Hgb (11.4-16.0) gm/dL Hct (34.0-46.0) % MCV (80.0-100.0) fL MCH (25.0-35.0) pg MCHC (31.0-37.0) g/dL RDW (11.5-15.5) % Plt Count (150-450) k/uL Neutrophils % (Manual) % Lymphocytes % (Manual) % Monocytes % (Manual) % Eosinophils % (Manual) % Basophils % (Manual) % Neutrophils # (Manual) (1.3-7.7) k/uL Lymphocytes # (Manual) (1.0-4.8) k/uL Monocytes # (Manual) (0-1.0) k/uL Eosinophils # (Manual) (0-0.7) k/uL Basophils # (Manual) (0-0.2) k/uL Nucleated RBCs (0-0) /100 WBC Manual Slide Review Sodium (137-145) mmol/L Potassium (3.5-5.1) mmol/L Chloride (98-107) mmol/L Carbon Dioxide (22-30) mmol/L Anion Gap mmol/L BUN (7-17) mg/dL Creatinine (0.52-1.04) mg/dL Est GFR (CKD-EPI)AfAm (>60 ml/min/1.73 sqM) Est GFR (CKD-EPI)NonAf (>60 ml/min/1.73 sqM) Glucose (74-99) mg/dL Plasma Lactic Acid [place] (0.7-2.0) mmol/L Calcium (8.4-10.2) mg/dL Total Bilirubin (0.2-1.3) mg/dL AST (14-36) U/L ALT (9-52) U/L Alkaline Phosphatase (38-126) U/L Total Protein (6.3-8.2) g/dL Albumin (3.5-5.0) g/dL Urine Color Light Yellow Urine Appearance Clear (Clear) Urine pH 5.5 (5.0-8.0) Ur Specific [place] 1.006 (1.001-1.035) Urine Protein Negative (Negative) Urine Glucose (UA) Negative (Negative) Urine Ketones Negative (Negative) Urine Blood Negative (Negative) Urine Nitrite Negative (Negative) Urine Bilirubin Negative (Negative) Urine Urobilinogen <2.0 (<2.0) mg/dL Ur Leukocyte Esterase Negative (Negative) Salicylates mg/dL Urine Opiates Screen Not Detected (NotDetected) Ur Oxycodone Screen Not Detected (NotDetected) Urine Methadone Screen Not Detected (NotDetected) Ur Propoxyphene Screen Not Detected (NotDetected) Acetaminophen ug/mL Ur Barbiturates Screen Not Detected (NotDetected) U Tricyclic Antidepress Not Detected (NotDetected) Ur Phencyclidine Scrn Not Detected (NotDetected) Ur Amphetamines Screen Detected H (NotDetected) U Methamphetamines Scrn Detected H (NotDetected) U Benzodiazepines Scrn Not Detected (NotDetected) Urine Cocaine Screen Not Detected (NotDetected) U Marijuana (THC) Screen Not Detected (NotDetected) Serum Alcohol mg/dL Disposition Clinical Impression: Alcohol intoxication, Methamphetamine abuse Disposition: HOME SELF-CARE Condition: Fair Instructions (If sedation given, give patient instructions): Alcohol Intoxication (ED), Methamphetamine Abuse (ED) Is patient prescribed a controlled substance at d/c from ED?: No Referrals: None,Stated [Primary Care Provider] - 1-2 days Clyde Riojas MD [REFERRING] - 1-2 days Time of Disposition: 02:21
[2018-12-07 22:05] LABS: ALT 28 U/L (9-52); AST 57 U/L (14-36); Acetaminophen <10.0 ug/mL; Albumin 4.7 g/dL (3.5-5.0); Alkaline Phosphatase 180 U/L (38-126); Anion Gap 11 mmol/L; Blood Urea Nitrogen 15 mg/dL (7-17); Calcium 10.2 mg/dL (8.4-10.2); Carbon Dioxide 18 mmol/L (22-30); Chloride 114 mmol/L (98-107); Glucose 73 mg/dL (74-99); Potassium 4.6 mmol/L (3.5-5.1); Salicylate 28.4 mg/dL; Sodium 143 mmol/L (137-145); Total Bilirubin 0.3 mg/dL (0.2-1.3); Total Protein 7.9 g/dL (6.3-8.2)
[2018-12-07 22:08] LABS: HCT 40.7 % (34.0-46.0); MCH 31.1 pg (25.0-35.0); MCHC 31.8 g/dL (31.0-37.0); MCV 97.6 fL (80.0-100.0); Mean Platelet Volume 7.1; Platelet Count 342 k/uL (150-450); RBC 4.17 m/uL (3.80-5.40); RDW 14.7 % (11.5-15.5); WBC 7.5 k/uL (3.8-10.6)
[2018-12-07 22:19] LABS: Alcohol 183 mg/dL
[2018-12-07 22:31] LABS: Basophils # (M) 0.08 k/uL (0-0.2); Eosinophils # (M) 0.23 k/uL (0-0.7); Lymphocytes # (M) 3.23 k/uL (1.0-4.8); Monocytes # (M) 0.75 k/uL (0-1.0); Neutrophils # (M) 3.23 k/uL (1.3-7.7); Neutrophils % (M) 43 %; Nucleated Red Blood Cells 0 /100 WBC (0-0); Total Cells Counted 100
--- NOTE | 2018-12-07 23:02 | XR ---
EXAM: XR Chest, 1 View CLINICAL HISTORY: Reason: Pain TECHNIQUE: Frontal view of the chest. COMPARISON: Chest x-ray 10/29/2016 FINDINGS: Limitations: Technically limited portable chest radiograph with patient rotation towards the left. Lungs: No focal pulmonary infiltrates or consolidations. Pleural space: No evidence of pleural effusion. No pneumothorax identified.. Heart: Heart size is within normal limits. Mediastinum: Mediastinal structures are unremarkable. Bones/joints: Fractures involving the posterior-lateral left fifth and sixth ribs of indeterminate age. IMPRESSION: No evidence of acute cardiopulmonary disease. Posterolateral left fifth and sixth rib fractures which are of indeterminate age and may be acute.
[2018-12-07 23:15] LABS: Appearance,Urine Clear (Clear); Bilirubin,Urine Negative (Negative); Blood,Urine Negative (Negative); Color,Urine Light Yellow; Glucose,Urine (UA) Negative (Negative); Ketones,Urine Negative (Negative); Leukocyte Esterase,Urine Negative (Negative); Nitrite,Urine Negative (Negative); PH, Urine 5.5 (5.0-8.0); Protein,Urine Negative (Negative); Specific Gravity,Urine 1.006 (1.001-1.035); Urobilinogen,Urine <2.0 mg/dL (<2.0)
--- NOTE | 2018-12-07 23:25 | CT ---
EXAM: CT Head Without Intravenous Contrast CLINICAL HISTORY: Reason: Pain TECHNIQUE: Axial computed tomography images of the head/brain without intravenous contrast. CTDI is 49.3 mGy and DLP is 1098.4 mGy-cm. This CT exam was performed using one or more of the following dose reduction techniques: automated exposure control, adjustment of the mA and/or kV according to patient size, and/or use of iterative reconstruction technique. COMPARISON: None available FINDINGS: Brain: No evidence of acute transcortical cerebral infarction or intracranial hemorrhage. No abnormal mass effect or midline shift. No abnormal extra-axial collections. Ventricles: Ventricles are unremarkable. Bones/joints: No skull fracture identified. 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 Sinuses: Minimal bilateral maxillary sinus fluid. Bilateral ethmoid sinus mucosal thickening Mastoid air cells: Mastoid sinuses are unremarkable. IMPRESSION: No evidence of acute intracranial abnormality. Paranasal sinus disease.
[2018-12-07 23:30] LABS: Amphetamine Screen,Urine Detected (NotDetected); Barbiturate Screen,Urine Not Detected (NotDetected); Benzodiazepines Screen,Urine Not Detected (NotDetected); Cocaine Screen,Urine Not Detected (NotDetected); Methadone Screen, Urine Not Detected (NotDetected); Opiate Screen,Urine Not Detected (NotDetected); Oxycodone Screen, Urine Not Detected (NotDetected); Phencyclidine Screen,Urine Not Detected (NotDetected); Tricyclic Antidepressant,Urine Not Detected (NotDetected); Urn Cannabinoid Scrn Not Detected (NotDetected)
[2018-12-08 06:07] VITALS: BP 123/75; PULSE 78; RESP 18; TEMP 97.6
== END 2018-12-08 06:15 | disposition home or self-care (01) ==
LOC: EC 21:29
DX: F10.129 Alcohol abuse with intoxication, unspecified (principal); F15.10 Other stimulant abuse, uncomplicated; J44.9 Chronic obstructive pulmonary disease, unspecified; K21.9 Gastro-esophageal reflux disease without esophagitis; I10 Essential (primary) hypertension; E07.9 Disorder of thyroid, unspecified; Z86.19 Personal history of other infectious and parasitic diseases; F41.9 Anxiety disorder, unspecified; F17.200 Nicotine dependence, unspecified, uncomplicated; Z79.51 Long term (current) use of inhaled steroids; Z79.890 Hormone replacement therapy; Z79.899 Other long term (current) drug therapy
CPT/HCPCS: 36415; 93005; 80053; 83605; 85025; 81003; 80306; 83520; 71045; 70450; 99285; 51702; 96374; 96361; 96372; G0480 ×2; J2060; J3411; 80320; 80329